=== PATIENT | female | born 1975 | race Caucasian/White ===

== ENCOUNTER 2016-11-12 07:20 | Inpatient (IN) | payer OTHER ==
[~2016-11-12] VITALS: Ht 165.1 cm; Wt 39.7 kg
--- NOTE | ~2016-11-12 | CON ---
[place], [place] REPORT OF CONSULTATION NAME: REJI SCHAFER UNIT #: [id number] ROOM: 410 DOCTOR: ERIK CROCKER MD BIRTHDATE: [birth year] DOS: HISTORY OF PRESENT ILLNESS: 41 years old patient who presented with chief complaint of epigastric subxiphoid pain. The patient with known history of established gastritis. The patient is on Prilosec; however, she does coffee and cranberry juices that makes her indigestion much worse. At the time of admission, she has a panel of blood work done, H and H of 16 and 45, macrocytic, white blood cell was 10. Comprehensive metabolic panel, electrolytes balanced, BUN and creatinine normal. Potassium of 3.2 has been addressed. Liver function test of GOT, GPT of 125, 100 and alkaline phosphatase of 230 with the amylase, lipase normality of 61 and [address] scan of the abdomen 3 cm right ovarian cyst, nonobstructive renal calculus, degenerative changes of lumbar spine, all has been recognized. She is status post cholecystectomy. No acute pancreatitis, adrenal gland pathology or liver or spleen has been reported. Hemoglobin A1c was 4.0 and her test was negative. Her C. diff has been negative. Her labs and records repeatedly are addressed. Potassium 3.5, normal. PAST MEDICAL HISTORY: Of significance is heavy alcohol consumption up to a gallon of vodka per day that she has tailored down to a fifth of vodka randomly. Other adjunctive diagnoses macrocytic anemia secondary to heavy alcohol consumption, old history of C. diff, history of depression, protein malnutrition, history of seizure. SOCIAL HISTORY: Heavy alcohol consumption of vodka up to a gallon periodically, which she has tailored down to a fifth of vodka per day and a smoker. FAMILY HISTORY: Noncontributory. ALLERGIES: To no known medications. MEDICATIONS: Medication list has been reviewed. REVIEW OF SYSTEMS: HEENT: Denies double vision, blurred vision. RESPIRATORY: Denies shortness of breath. CARDIOVASCULAR: Denies chest pain. DIGESTIVE SYSTEM: No hematemesis, no hematochezia, subxiphoid pain, dyspepsia secondary to multiple issues including alcohol, caffeine and citrated juices. PHYSICAL EXAMINATION: VITAL SIGNS: Stable, nontoxic, comfortable patient, who has consumed regular diet, who is on Prilosec 20 mg daily otherwise. HEENT: Head normocephalic, nontraumatic. Mouth and buccal mucosa benign. NECK: Supple, no thyromegaly. CHEST: Symmetric anatomy, equal expansion. HEART: Normal sinus rhythm, no gallop, no murmur. ABDOMEN: Soft. No hepato-organomegaly. Bowel sounds within normal limit. EXTREMITIES: No cyanosis, no pedal edema. NEUROLOGIC: Alert, oriented to time, place and person. [place], [place] REPORT OF CONSULTATION NAME: REJI SCHAFER UNIT #: [id number] ROOM: 410 DOCTOR: ERIK CROCKER MD BIRTHDATE: [birth year] IMPRESSION AND PLAN: 1. Microcytic anemia secondary to ETOH consumption, abnormal liver function tests secondary to ETOH consumption, dyspepsia secondary to caffeinated beverage alcohol and citrated juices, heavy history of alcohol dependency up to a gallon of vodka up to recently that she has converted to a fifth of vodka periodically. 2. Nicotine dependency. PLAN AND DISCUSSION: 1. Increasing Prilosec to 20 mg b.i.d. 2. Discharge and follow up as outpatient. ERIK CROCKER MD CM:CONSTR:REPORT OF CONSULTATION 1313 11/16/16 0324 interface
[~2016-11-12 07:20] MED LIST: ACYCLOVIR800 MG PO; AMOXICILLIN500 MG PO; ANAPROX DS550 MG PO; ATIVAN; ATIVAN1 MG PO; B-1100 MG PO; B12,B-12,B 12500 MC1 PO; B12-METHYL1000 MCG PO; BACTRIM DS 8001 TA1 PO; CALCIUM 600600 M2 PO; CARAFATE1 G1 PO; CELEXA10 MG PO; CELEXA20 MG PO; CIPRO500 MG PO; CIPRODEX 0.3%-7.5 ML OT; CLINDAMYCIN HC300 MG PO; CORTISPORIN SUS10 ML OT; Carafate1 GM PO; DIFLUCAN150 MG PO; DILANTIN100 MG PO; FERROUS SULFAT325 M1 PO; FOLIC ACID1 MG PO; HYDROCODONE BIT1 T11 PO; K-DUR 2020 MEQ PO; K-DUR20 MEQ PO; KEFLEX500 MG PO; KROGER NIC21 MG/24 H T; LACTULOSE20 GM/30 M PO; LEVOFLOXACIN500 MG PO; MAG-OX 400400 MG PO; MAGNESIUM OXID400 MG PO; MEDROL DOSEPAK4 MG PO; METRONIDAZOLE500 M1 PO; MIRTAZAPINE15 M2 PO; MOTRIN800 MG PO; MULTIPLE VITAMI1 CAP PO; Motrin,Rufen800 MG PO; NAPROSYN250 MG PO; NAPROSYN500 MG PO; NATURE'S BLEND F1 MG PO; NEUTRA-PHOS1 PDR PO; NICODERM21 MG/24 H T; NICORETTE4 MG PO; NKHM; NORCO 325 MG-51 TAB PO; OMEPRAZOLE D/R20 MG PO; Oscal,Oyster S500 MG PO; PEN-VEE K500 MG PO; PEPCID20 MG PO; PERCOCET 325 MG1 TA2 PO; PERCOCET 325 MG1 TA5 PO; POTASSIUM CHLO20 MEQ PO; PREDNICOT10 MG PO; PRILOSEC10 MG/Pack PO; PRILOSEC20 M1 PO; PRILOSEC20 MG PO; PROTONIX40 MG PO; PYRIDOXINE50 MG PO; SEPTRA DS 800 M1 TAB PO; SERTRALINE HYDR50 MG PO; SUCRALFATE1 GM; TUMS 500500 MG PO; U; ULTRAM50 MG PO; VALIUM5 MG PO; VICODIN 5/500 505 MG PO; VICODIN 500 MG-1 TAB PO; VICODIN ES 7501 TAB PO; VOLTAREN50 M1 PO; ZOFRAN ODT4 MG SL; ZOLOFT25 MG PO; ZOLOFT50 MG PO; Zofran4 MG PO
[2016-11-12 07:46] VITALS: BP 138/95
[2016-11-12 08:37] LABS: BASO % 0.2 % (0.0-1.0); HEMATOCRIT 45.3 % (37.0-47.0); HEMOGLOBIN 16.1 g/dl (12.0-16.0); LYMPH # 1.1 10*3/uL (1.3-4.4); LYMPH % 10.8 % (27.0-41.0); MEAN CELL VOLUME 105.1 fl (81.0-99.0); MEAN CORPUSCULAR HGB 37.4 pg (27.0-31.0); MEAN CORPUSCULAR HGB CONC 35.5 g/dl (33.0-37.0); MEAN PLATELET VOLUME 9.6 fl (9.6-12.3); MONO # 0.6 10*3/uL (0.1-1.0); MONO % 5.7 % (3.0-9.0); NEUT # 8.5 10*3/uL (2.3-7.9); PLATELET COUNT AUTOMATED 222 10*3/uL (130-400); RED BLOOD COUNT 4.31 10*6/uL (4.10-5.10); RED CELL DISTRI WIDTH 12.6 % (0-14.5); WHITE BLOOD COUNT 10.2 10*3/uL (4.8-10.8)
[2016-11-12 08:48] LABS: ALBUMIN 3.8 gm/dl (3.1-4.5); ALKALINE PHOSPHATASE 230 U/L (45-117); BILIRUBIN, TOTAL 0.9 mg/dl (0.2-1.0); BUN 18 mg/dl (7-24); CARBON DIOXIDE 31 mmol/L (21-32); CHLORIDE 92 mmol/L (98-107); EST GLOM FILT AFRICAN AMERICAN > 60 ml/min; GLUCOSE 143 mg/dL (65-99); POTASSIUM 3.2 mmol/L (3.5-5.1); SGOT/AST 125 IU/L (3-35); SGPT/ALT 100 U/L (12-78); SODIUM 140 mmol/L (136-145); TOTAL PROTEIN 8.5 gm/dL (6.4-8.2)
[2016-11-12] MEDS ORDERED: CELEXA40 MG PO (09:41)
[2016-11-12] MEDS ORDERED: NEURONTIN100 MG PO (09:41)
[2016-11-12 10:28] LABS: BILIRUBIN 3+ (NEGATIVE); BLOOD TRACE-INTACT (NEGATIVE); CLARITY SL CLOUDY (CLEAR); COLOR YELLOW (YELLOW); GLUCOSE NEGATIVE (NEGATIVE); KETONE 3+ (NEGATIVE); LEUKO ESTERASE TRACE (NEGATIVE); NITRITE NEGATIVE (NEGATIVE); PH 7.5 (5.0-9.0); PROTEIN 2+ (NEGATIVE); SPECIFIC GRAVITY 1.015 (1.005-1.030)
[2016-11-12 10:35] LABS: BACTERIA 1+; MUCOUS 1+; URINE REFLEX COMMENT YES (NO)
[2016-11-12 10:38] LABS: WBC 16-20 wbc/hpf (0-5)
[2016-11-12] MEDS ORDERED: NEURONTIN300 MG PO (11:22)
[2016-11-12] MEDS ORDERED: VITAMIN B1250 MCG PO (11:23)
[2016-11-12] MEDS ORDERED: NATURE'S BLEND F1 MG PO (11:24)
[2016-11-12 12:10] LABS: CPK 22 U/L (26-192)
[2016-11-12 12:14] LABS: CKMB < 0.5 ng/ml (0.5-3.6); TROPONIN I < 0.015 ng/ml (<0.045)
[2016-11-12 16:00] VITALS: BP 127/81
[2016-11-12 18:13] LABS: CKMB < 0.5 ng/ml (0.5-3.6); CPK 22 U/L (26-192); TROPONIN I < 0.015 ng/ml (<0.045)
[2016-11-12 20:00] VITALS: BP 132/80
[2016-11-13] VITALS: BP 139/84
[2016-11-13 00:45] LABS: CPK 23 U/L (26-192)
[2016-11-13 00:46] LABS: CKMB < 0.5 ng/ml (0.5-3.6); TROPONIN I < 0.015 ng/ml (<0.045)
[2016-11-13 06:18] LABS: MEAN CORPUSCULAR HGB 37.2 pg (27.0-31.0); MEAN CORPUSCULAR HGB CONC 33.9 g/dl (33.0-37.0); MEAN PLATELET VOLUME 10.4 fl (9.6-12.3); RED BLOOD COUNT 3.47 10*6/uL (4.10-5.10); RED CELL DISTRI WIDTH 12.8 % (0-14.5); WHITE BLOOD COUNT 8.6 10*3/uL (4.8-10.8)
[2016-11-13 06:20] LABS: HEMATOCRIT 38.1 % (37.0-47.0); HEMOGLOBIN 12.9 g/dl (12.0-16.0); MEAN CELL VOLUME 109.8 fl (81.0-99.0); PLATELET COUNT AUTOMATED 132 10*3/uL (130-400)
[2016-11-13 07:00] LABS: LYMPHOCYTE # 2.2 10*3/uL (1.3-4.4); MONOCYTE # 0.2 10*3/uL (0.1-1.0); NEUTROPHIL # 6.3 10*3/uL (2.3-7.9); NEUTROPHILS 73 % (47-73); PLATELET SUFFICIENCY NORMAL (NORMAL); TOTAL CELLS COUNTED 100 #CELLS
[2016-11-13 07:02] LABS: PROTHROMBIN TIME 10.9 SECONDS (9.0-12.4)
[2016-11-13 07:10] LABS: VITAMIN D, 25-HYDROXY 35.2 ng/mL (30-100)
[2016-11-13 07:11] LABS: FOLIC ACID 15.99 ng/mL (>5.38)
[2016-11-13 07:19] LABS: BUN 9 mg/dl (7-24); CARBON DIOXIDE 29 mmol/L (21-32); CHLORIDE 102 mmol/L (98-107); EST GLOM FILT AFRICAN AMERICAN > 60 ml/min; GLUCOSE 89 mg/dL (65-99); POTASSIUM 2.5 mmol/L (3.5-5.1); SODIUM 142 mmol/L (136-145)
[2016-11-13 07:20] LABS: CHOLESTEROL 200 mg/dL (<200); FREE T4 0.71 ng/dl (0.76-1.46); HDL CHOLESTEROL 113 mg/dl (40-60); LDL CHOLESTEROL 67 mg/dL (9-159); MAGNESIUM 1.3 mg/dL (1.5-2.1); PHOSPHOROUS 1.1 mg/dL (2.5-4.9); TRIGLYCERIDES 100 mg/dl (<150); VLDL CHOLESTEROL 20 mg/dL (6-40)
[2016-11-13 08:00] VITALS: BP 141/88
[2016-11-13 12:00] VITALS: BP 142/90
[2016-11-13 16:00] VITALS: BP 152/95
[2016-11-13 20:00] VITALS: BP 145/89
[2016-11-14] VITALS: BP 132/89
[2016-11-14 05:58] LABS: BUN 1 mg/dl (7-24); CARBON DIOXIDE 28 mmol/L (21-32); CHLORIDE 102 mmol/L (98-107); EST GLOM FILT AFRICAN AMERICAN > 60 ml/min; GLUCOSE 84 mg/dL (65-99); MAGNESIUM 1.5 mg/dL (1.5-2.1); PHOSPHOROUS 2.1 mg/dL (2.5-4.9); SODIUM 139 mmol/L (136-145)
[2016-11-14 06:02] LABS: HEMATOCRIT 39.8 % (37.0-47.0); HEMOGLOBIN 13.6 g/dl (12.0-16.0); MEAN CELL VOLUME 108.2 fl (81.0-99.0); MEAN CORPUSCULAR HGB CONC 34.2 g/dl (33.0-37.0); MEAN PLATELET VOLUME 10.2 fl (9.6-12.3); PLATELET COUNT AUTOMATED 109 10*3/uL (130-400); RED BLOOD COUNT 3.68 10*6/uL (4.10-5.10); RED CELL DISTRI WIDTH 12.5 % (0-14.5); WHITE BLOOD COUNT 6.8 10*3/uL (4.8-10.8)
[2016-11-14 06:08] LABS: POTASSIUM 2.3 mmol/L (3.5-5.1)
[2016-11-14 06:34] LABS: EOSINOPHIL # 0.2 10*3/uL (0-0.4); EOSINOPHILS 3 % (1-4); MONOCYTE # 0.5 10*3/uL (0.1-1.0); NEUTROPHIL # 3.1 10*3/uL (2.3-7.9); NEUTROPHILS 46 % (47-73); PLATELET SUFFICIENCY LOW (NORMAL); TOTAL CELLS COUNTED 100 #CELLS
[2016-11-14 08:00] VITALS: BP 150/94
[2016-11-14 12:00] VITALS: BP 146/86
[2016-11-14 12:56] LABS: BUN 1 mg/dl (7-24); CARBON DIOXIDE 29 mmol/L (21-32); EST GLOM FILT AFRICAN AMERICAN > 60 ml/min; GLUCOSE 82 mg/dL (65-99); SODIUM 137 mmol/L (136-145)
[2016-11-14 13:07] LABS: CHLORIDE 100 mmol/L (98-107)
[2016-11-14 13:15] LABS: POTASSIUM 4.5 mmol/L (3.5-5.1)
[2016-11-14 16:00] VITALS: BP 128/92
[2016-11-14 20:00] VITALS: BP 136/87
[2016-11-15] VITALS: BP 139/94
[2016-11-15 07:06] LABS: BASO % 0.3 % (0.0-1.0); EOS # 0.3 10*3/uL (0.0-0.4); EOS % 5.4 % (1.0-4.0); HEMATOCRIT 40.5 % (37.0-47.0); HEMOGLOBIN 13.9 g/dl (12.0-16.0); LYMPH # 2.6 10*3/uL (1.3-4.4); LYMPH % 42.7 % (27.0-41.0); MEAN CORPUSCULAR HGB 37.1 pg (27.0-31.0); MEAN CORPUSCULAR HGB CONC 34.3 g/dl (33.0-37.0); MONO # 0.4 10*3/uL (0.1-1.0); MONO % 6.5 % (3.0-9.0); NEUT # 2.7 10*3/uL (2.3-7.9); NEUT % 44.8 % (47.0-73.0); PLATELET COUNT AUTOMATED 108 10*3/uL (130-400); RED BLOOD COUNT 3.75 10*6/uL (4.10-5.10); RED CELL DISTRI WIDTH 12.6 % (0-14.5); WHITE BLOOD COUNT 6.1 10*3/uL (4.8-10.8)
[2016-11-15 07:36] LABS: BUN 5 mg/dl (7-24); CARBON DIOXIDE 28 mmol/L (21-32); CHLORIDE 101 mmol/L (98-107); EST GLOM FILT AFRICAN AMERICAN > 60 ml/min; GLUCOSE 73 mg/dL (65-99); SODIUM 139 mmol/L (136-145)
[2016-11-15 07:46] LABS: POTASSIUM 3.5 mmol/L (3.5-5.1)
[2016-11-15 08:00] VITALS: BP 150/90
[2016-11-15 12:00] VITALS: BP 138/94
[2016-11-15] MEDS ORDERED: NEURONTIN300 MG PO ×2 (14:30)
[2016-11-15] MEDS ORDERED: PANTOPRAZOLE SO40 MG PO (14:30)
[2016-11-15] MEDS ORDERED: IMODIUM A-D2 M2 PO (14:32)
[2016-11-15] MEDS ORDERED: ACIDOPHILUS1 EAC3 PO (14:32)
[2016-11-15] MEDS ORDERED: CIPRO500 MG PO (14:53)
== END 2016-11-15 14:54 | disposition home or self-care (01) | DRG 391 ==
LOC: ED 07:20 → EDHOLD 10:23 → 4E 10:43
PROVIDERS: Emergency Medicine; Family Medicine; Hospitalist; Student in an Organized Health Care Education/Training Program
DX: K52.9 Noninfective gastroenteritis and colitis, unspecified (principal); E43 Unspecified severe protein-calorie malnutrition; I85.10 Secondary esophageal varices without bleeding; N28.89 Other specified disorders of kidney and ureter; F10.20 Alcohol dependence, uncomplicated; D50.8 Other iron deficiency anemias; N39.0 Urinary tract infection, site not specified; Z68.1 Body mass index [BMI] 19.9 or less, adult; F41.9 Anxiety disorder, unspecified; E86.0 Dehydration; F32.9 Major depressive disorder, single episode, unspecified; G62.9 Polyneuropathy, unspecified; G40.909 Epilepsy, unspecified, not intractable, without status epilepticus; F17.210 Nicotine dependence, cigarettes, uncomplicated; E87.6 Hypokalemia; D75.89 Other specified diseases of blood and blood-forming organs; N83.209 Unspecified ovarian cyst, unspecified side; M51.36 Other intervertebral disc degeneration, lumbar region; R20.9 Unspecified disturbances of skin sensation; B96.20 Unspecified Escherichia coli [E. coli] as the cause of diseases classified elsewhere; Z79.899 Other long term (current) drug therapy; Z90.49 Acquired absence of other specified parts of digestive tract; Z85.41 Personal history of malignant neoplasm of cervix uteri; Z80.3 Family history of malignant neoplasm of breast; Z82.49 Family history of ischemic heart disease and other diseases of the circulatory system

== ENCOUNTER 2017-06-25 11:03 | Inpatient (IN) | payer SELFPAY ==
[~2017-06-25] VITALS: Ht 160 cm; Wt 41.4 kg
[~2017-06-25 11:03] MED LIST changes: +ACIDOPHILUS1 EAC3 PO; +CELEXA40 MG PO; +IMODIUM A-D2 M2 PO; +NEURONTIN100 MG PO; +NEURONTIN300 MG PO; +PANTOPRAZOLE SO40 MG PO; +VITAMIN B1250 MCG PO
[2017-06-25 11:25] VITALS: BP 136/91
[2017-06-25 11:57] LABS: BASO % 0.4 % (0.0-1.0); EOS # 0.2 10*3/uL (0.0-0.4); EOS % 1.8 % (1.0-4.0); HEMATOCRIT 41.1 % (37.0-47.0); HEMOGLOBIN 14.6 g/dl (12.0-16.0); LYMPH # 2.6 10*3/uL (1.3-4.4); MEAN CELL VOLUME 107.9 fl (81.0-99.0); MEAN CORPUSCULAR HGB 38.3 pg (27.0-31.0); MEAN CORPUSCULAR HGB CONC 35.5 g/dl (33.0-37.0); MONO # 0.5 10*3/uL (0.1-1.0); NEUT # 5.1 10*3/uL (2.3-7.9); NEUT % 60.4 % (47.0-73.0); PLATELET COUNT AUTOMATED 58 10*3/uL (130-400); RED BLOOD COUNT 3.81 10*6/uL (4.10-5.10); RED CELL DISTRI WIDTH 14.8 % (0-14.5); WHITE BLOOD COUNT 8.4 10*3/uL (4.8-10.8)
[2017-06-25 12:07] LABS: ACT PARTIAL THROMBO TIME 25.9 SECONDS (20.8-31.5); INTERNATIONAL NORM RATIO 1.1 (2.0-3.5)
[2017-06-25 12:13] LABS: ALBUMIN 3.3 gm/dl (3.1-4.5); ALKALINE PHOSPHATASE 190 U/L (45-117); BUN 8 mg/dl (7-24); CHLORIDE 81 mmol/L (98-107); POTASSIUM 2.9 mmol/L (3.5-5.1); SGOT/AST 187 IU/L (3-35); SGPT/ALT 61 U/L (12-78); SODIUM 130 mmol/L (136-145)
[2017-06-25 12:14] LABS: BILIRUBIN 3+ (NEGATIVE); BLOOD TRACE-LYSED (NEGATIVE); CLARITY SL CLOUDY (CLEAR); GLUCOSE TRACE (NEGATIVE); KETONE 2+ (NEGATIVE); NITRITE POSITIVE (NEGATIVE); UROBILINOGEN >= 8.0 E.U./dl (0.2-1.0)
[2017-06-25 12:16] LABS: TROPONIN I < 0.015 ng/ml (<0.045)
[2017-06-25 12:17] LABS: ETHYL ALCOHOL < 3.0 mg/dl (<3)
[2017-06-25 12:20] LABS: COLOR ORANGE (YELLOW); LEUKO ESTERASE TRACE (NEGATIVE)
[2017-06-25 12:23] LABS: EPITHELIAL CELLS 31-40
[2017-06-25 12:24] LABS: BACTERIA 1+
[2017-06-25 12:29] LABS: URINE AMPHETAMINES < 1000 (1000ng/ml); URINE BARBITURATES < 200 (200ng/ml); URINE BENZODIAZEPINES < 200 (200ng/ml); URINE CANNABINOIDS (THC) > 50 (50ng/ml); URINE COCAINE < 300 (300ng/ml); URINE METHADONE < 300 (300ng/ml); URINE OPIATES < 300 (300ng/ml)
[2017-06-25 12:31] LABS: URINE PHENCYCLIDINE < 25 (25ng/ml)
[2017-06-25 13:16] VITALS: BP 121/72
--- NOTE | 2017-06-25 13:18 | NUR ---
REPORT RECEIVED FROM ER NURSE
[2017-06-25 13:25] VITALS: BP 120/90
--- NOTE | 2017-06-25 13:30 | NUR ---
PATIENT HAS LARGE ECCHYMOTIC AREA TO LEFT OUTER CORNER OF EYE. ECCYMOTIC AREA TO RT UPPER LIP & KNOT ABOVE RT EYE. RT KNEE HAS ABRAISIONS THAT ARE SOMEWHAT SCABBED TO INNER & OUTER ASPECTS. LEFT KNEE HAS 2 LARGE ABRAISIONS THAT ARE SOMEWHAT SCABBED. UPPER RT LEUNG HAS A LARGE OPEN AREA WITH A HOLE IN THE MIDDLE & DARK/NECROTIC AREA TO THE PERIMETER. THERE IS ALSO AT THE BOTTOM OF THAT WOUND (1800 POSITION) FULLY ATTACHED SKIN THAT ALLOWS THE STICK OF THE COTTON TIP APPLICATOR TO GO UNDER 2mm. ANOTHER WOUND TO THE LEFT ANKLE IS A SKIN TEAR. SEE WOUND SCREEN. DRESSING APPLIED TO ALL WOUNDS ON LOWER EXTREMITIES & DR LIMA MADE AWARE OF WOUNDS & MED REC UPDATED/ ORDERS RECEIVED.
--- NOTE | 2017-06-25 13:30 | NUR ---
A 42, admitted to , under the services of DEIRDRE Nj DO with a diagnosis of ELECTROLYTE IMBALANCE, CONFUSION, FREQ FALLS.. Chief complaint is N/V/D X1 WEEKS WITH INCREASE IN FALLS & VERY VIVID DREAMS. PER [place] CONFUSED THAN NORMAL. . Patient arrived via stretcher from ER. Monitor applied. Initial assessment completed. Vital signs taken and recorded. DEIRDRE NJ DO notified of admission to the unit. Orders received. See assessment for past medical history, medications and allergies. Patient and/or family oriented to unit. [facility]. Clothing/patient valuable form completed. IRMA LIEBERMAN
[2017-06-25] MEDS ORDERED: NEURONTIN100 MG PO (13:47)
[2017-06-25 16:00] VITALS: BP 114/77
--- NOTE | 2017-06-25 17:00 | NUR ---
ZOFRAN GIVEN WITH PO POTASSIUM
[2017-06-25 20:00] VITALS: BP 114/77
--- NOTE | 2017-06-25 20:00 | NUR ---
PT. IS CURRENTLY SITTING UP IN BED WATCHING TV AT THIS TIME. PT. REQUESTING NICOTROL INHALER, SEE EMAR. BED WHEELS ARE LOCKED, AND BED IN LOWEST POSITION. CALL LIGHT IS WITHIN REACH AND PT. DOES NOT HAVE S/S OF DISTRESS. SEE SHIFT ASSESSMENT.
--- NOTE | 2017-06-25 22:20 | NUR ---
PRN NORCO GIVEN TO PT. FOR C/O LOWER BACK AND NECK PAIN. CALL LIGHT IN REACH WILL MONITOR EFFECT.
--- NOTE | 2017-06-25 23:00 | NUR ---
PRN NORCO SEEMS EFFECTIVE, WHEN ASKED PT. DOES NOT VERBALIZE ANY PAIN.
--- NOTE | 2017-06-25 23:51 | NUR ---
PRN RESTORIL GIVEN PER PT. REQUEST FOR INSOMNIA. WILL MONITOR EFFECT.
[2017-06-26] VITALS: BP 123/88; BP 99/75
--- NOTE | 2017-06-26 00:30 | NUR ---
PRN RESTORIL SEEMS EFFECTIVE, PT. IS SLEEPING COMFORTABLY IN BED WITH CALL LIGHT IN REACH AND RESPERS EASY AND REGULAR. WILL CONTINUE TO MONITOR.
[2017-06-26 04:52] LABS: HEMATOCRIT 35.2 % (37.0-47.0); HEMOGLOBIN 12.3 g/dl (12.0-16.0); MEAN CELL VOLUME 109.3 fl (81.0-99.0); MEAN CORPUSCULAR HGB 38.2 pg (27.0-31.0); MEAN CORPUSCULAR HGB CONC 34.9 g/dl (33.0-37.0); MEAN PLATELET VOLUME 12.3 fl (9.6-12.3); PLATELET COUNT AUTOMATED 50 10*3/uL (130-400); RED BLOOD COUNT 3.22 10*6/uL (4.10-5.10); RED CELL DISTRI WIDTH 14.6 % (0-14.5)
[2017-06-26 05:19] LABS: ATYPICAL LYMPHS 6 % (0-0); PLATELET SUFFICIENCY LOW (NORMAL); TOTAL CELLS COUNTED 100 #CELLS
[2017-06-26 05:21] LABS: ALBUMIN 2.7 gm/dl (3.1-4.5); ALKALINE PHOSPHATASE 147 U/L (45-117); BUN 7 mg/dl (7-24); CHLORIDE 92 mmol/L (98-107); CREATININE 0.56 mg/dL (0.55-1.02); FREE T4 1.16 ng/dl (0.76-1.46); PHOSPHOROUS 2.4 mg/dL (2.5-4.9); POTASSIUM 2.6 mmol/L (3.5-5.1); SGOT/AST 106 IU/L (3-35); SGPT/ALT 43 U/L (12-78); SODIUM 134 mmol/L (136-145); TOTAL PROTEIN 6.5 gm/dL (6.4-8.2)
[2017-06-26 06:09] LABS: HEPATITIS B SURFACE AG Negative (Negative); HEPATITIS C VIRUS ANTIBODY 0.2 s/co (0.0-0.9)
[2017-06-26 08:00] VITALS: BP 115/69
--- NOTE | 2017-06-26 08:15 | NUR ---
NORCO GIVEN FOR C/O GENERALIZED DISCOMFORT. WILL MONITOR.
--- NOTE | 2017-06-26 09:20 | NUR ---
SURAJ EFFECTIVE PER PT.
[2017-06-26 12:00] VITALS: BP 110/66
--- NOTE | 2017-06-26 13:15 | NUR ---
NORCO GIVEN FOR C/O GENERALIZED DISCOMFORT. WILL MONITOR.
--- NOTE | 2017-06-26 14:30 | NUR ---
SURAJ EFFECTIVE PER PT.
[2017-06-26 16:00] VITALS: BP 116/60
--- NOTE | 2017-06-26 17:10 | NUR ---
VISTARIL GIVEN FOR C/O ANXIETY. WILL MONITOR.
--- NOTE | 2017-06-26 18:12 | NUR ---
VISTARIL EFFECTIVE PER PT.
[2017-06-26 20:00] VITALS: BP 104/69
--- NOTE | 2017-06-26 20:04 | NUR ---
PT SITTING UP IN BED, ALERT ORIENTED AND PLEASANT. ASSESSMENT COMPLETE, HRR 74 ON CM. LUNGS DIMINISHED THROUGHOUT. ACTIVE BSX4 QUADS. PT C/O HEADACHE, TYLENOL 650 MG ADMINISTERED PO. WILL MONITOR FOR EFFECTIVENESS. CALL LIGHT IN REACH.
--- NOTE | 2017-06-26 21:04 | NUR ---
TYLENOL EFFECTIVE PER PT.
--- NOTE | 2017-06-26 22:23 | NUR ---
PT C/O BACKACHE AND INSOMNIA. NORCO AND RESTORIL ADMINISTERED AT THIS TIME. WILL MONITOR FOR EFFECTIVENESS. PT CURRENTLY RESTING IN BED.
[2017-06-27] VITALS: BP 110/68
--- NOTE | 2017-06-27 05:24 | NUR ---
PT AWAKE, ALERT ORIENTED AND PLEASANT. REQUESTS NORCO FOR PAIN. NORCO ADMINISTERED AT THIS TIME ALONG WITH OTHER SCHEDULED MEDICATIONS. WILL MONITOR FOR EFFECTIVENESS.
--- NOTE | 2017-06-27 06:28 | NUR ---
NORCO EFFECTIVE PER PT. PT RESTING IN BED AT THIS TIME NO S/S OF DISTRESS. RESPIRATIONS EASY. PT ENCOURAGED TO USE CALL LIGHT FOR ASSISTANCE/QUESTIONS.
[2017-06-27 06:33] LABS: HEMATOCRIT 35.4 % (37.0-47.0); MEAN CORPUSCULAR HGB 38.7 pg (27.0-31.0); MEAN CORPUSCULAR HGB CONC 33.9 g/dl (33.0-37.0); RED CELL DISTRI WIDTH 14.7 % (0-14.5); WHITE BLOOD COUNT 3.4 10*3/uL (4.8-10.8)
[2017-06-27 06:36] LABS: MEAN CELL VOLUME 114.2 fl (81.0-99.0); PLATELET COUNT AUTOMATED 72 10*3/uL (130-400)
[2017-06-27 06:38] LABS: BUN 8 mg/dl (7-24); CHLORIDE 100 mmol/L (98-107); CREATININE 0.41 mg/dL (0.55-1.02)
[2017-06-27 06:40] LABS: SODIUM 137 mmol/L (136-145)
[2017-06-27 06:41] LABS: POTASSIUM 3.8 mmol/L (3.5-5.1)
[2017-06-27 07:07] LABS: ATYPICAL LYMPHS 2 % (0-0); TOTAL CELLS COUNTED 100 #CELLS
[2017-06-27 07:09] LABS: PLATELET SUFFICIENCY LOW (NORMAL)
[2017-06-27 08:00] VITALS: BP 108/86
--- NOTE | 2017-06-27 09:00 | NUR ---
PT REQUESTS SOMETHING FOR ANXIETY. DR LIMA NOTIFIED.
[2017-06-27 12:00] VITALS: BP 123/82
--- NOTE | 2017-06-27 14:51 | NUR ---
C/O PAIN OF 4/10 TO BACK AND 7/10 TO LEFT LEG. NORCO GIVEN WILL CONT TO MONITOR. CALL LIGHT IN REACH.
--- NOTE | 2017-06-27 15:51 | NUR ---
EDEN EFF FOR PAIN WILL CONT TO MONITOR. CALL LIGHT IN REACH.
[2017-06-27 16:00] VITALS: BP 109/75
[2017-06-27 20:00] VITALS: BP 118/82
[2017-06-28] VITALS: BP 114/82
[2017-06-28 06:20] LABS: HEMATOCRIT 35.3 % (37.0-47.0); HEMOGLOBIN 11.9 g/dl (12.0-16.0); MEAN CELL VOLUME 112.4 fl (81.0-99.0); MEAN CORPUSCULAR HGB 37.9 pg (27.0-31.0); MEAN CORPUSCULAR HGB CONC 33.7 g/dl (33.0-37.0); MEAN PLATELET VOLUME 11.1 fl (9.6-12.3); RED BLOOD COUNT 3.14 10*6/uL (4.10-5.10); RED CELL DISTRI WIDTH 14.6 % (0-14.5); WHITE BLOOD COUNT 3.9 10*3/uL (4.8-10.8)
[2017-06-28 06:26] LABS: PLATELET COUNT AUTOMATED 110 10*3/uL (130-400)
[2017-06-28 06:40] LABS: CHLORIDE 102 mmol/L (98-107); POTASSIUM 3.9 mmol/L (3.5-5.1); SODIUM 135 mmol/L (136-145)
[2017-06-28 06:46] LABS: ALBUMIN 2.5 gm/dl (3.1-4.5); ALKALINE PHOSPHATASE 127 U/L (45-117); BUN 7 mg/dl (7-24); CREATININE 0.45 mg/dL (0.55-1.02); SGOT/AST 47 IU/L (3-35); SGPT/ALT 33 U/L (12-78); TOTAL PROTEIN 6.2 gm/dL (6.4-8.2)
[2017-06-28 07:03] LABS: TOTAL CELLS COUNTED 100 #CELLS
[2017-06-28 07:04] LABS: PLATELET SUFFICIENCY LOW (NORMAL)
[2017-06-28 08:00] VITALS: BP 100/65
--- NOTE | 2017-06-28 09:00 | NUR ---
Collections Director in to talk to patient. Patient states lives at home with . There are few steps in the home. Physician: salena thompson [facility] Home health services: none Patient's level of ADLs: INDEPENDENT Patient has working utilities: all working DME: none Follow-up physician's appointment after d/c: will be made by hospitalist nurse director upon discharge Does patient want to access PORTAL?: no Discharge plan discussed with patient, patient lives at home with , she is independent in adls and ambulation, drives, patient states she will be going back home and denies any home needs. PRACHI CONTRERAS
--- NOTE | 2017-06-28 09:54 | NUR ---
MEDICATED WITH PRN PO NORCO FOR RIGHT LEUNG PAIN AND GENERALIZED BODY PAIN.
[2017-06-28 12:00] VITALS: BP 109/70
--- NOTE | 2017-06-28 12:07 | NUR ---
PRN PO NORCO EFFECTIVE, PER PATIENT.
--- NOTE | 2017-06-28 14:00 | NUR ---
MEDICATED WITH PRN PO NORCO FOR RIGHT LEUNG PAIN.
--- NOTE | 2017-06-28 15:00 | NUR ---
PRN PO NORCO EFFECTIVE FOR RIGHT LEG PAIN, BUT C/O LEFT SIDE OF HEAD PAIN.
--- NOTE | 2017-06-28 15:12 | NUR ---
PHYSICAL THERAPY Pnt declined the need for Physical Therapy intervention during this admission. Order canceled per pnt request. Keke Tobar, PT
--- NOTE | 2017-06-28 15:19 | NUR ---
Patient approached for Occupational Therapy evaluation this date d/t h/o frequent falls. Patient declined OT evaluation and stated that she was independent in all transfers, mobility and ADLs. Discharge OT order per patient request. Carlota Holt OTR/L
[2017-06-28] MEDS ORDERED: Vitamin D PO (15:26)
[2017-06-28] MEDS ORDERED: AVPAK EXTENDED100 M1 PO (15:26)
[2017-06-28] MEDS ORDERED: VITAMIN D-32000 UNIT PO (15:27)
--- NOTE | 2017-06-28 15:35 | NUR ---
REJI SMITH [id number] Please refer to the physician's history and physical for past medical history, comorbid conditions, and allergies. Diagnosis: CONFUSION,HYPONATREMIA,THROMBOCYTOPENIA,ELEVATED M Gurdeep Score: 20,LOW OR NO RISK WOUND DESCRIPTIONS: Location of the wound: right anterior lower leg Type of wound: skin tear Thickness: Full Size: 2cm x 4cm x 0.2cm Tunneling: none Undermining: none Sinus Tract: none Presence of Exudate: Sanguineous Amount: Light Color: Red Odor: None Periwound Skin Appearance: Normal Wound edges: approximated Pain (associated with wound): patient denied at time of assessment How does patient state this happened? patient states she fell backwards while cleaning at home Location of the wound: right knee Type of wound: skin tear Thickness: Partial Size: 2 cm x 2 cm x 0.1cm Tunneling: none Undermining: none Sinus Tract: none Presence of Exudate: Serous Amount: Light Color: Red Odor: None Periwound Skin Appearance: Normal Wound edges: approxiamted Pain (associated with wound): patient denied How does patient state this happened? patient states she fell backwards while cleaning Location of the wound: left proximal knee Type of wound: skin tear Thickness: Partial Size: 2.5cm x 1.5cm x 0.1cm Tunneling: none Undermining: none Sinus Tract: none Presence of Exudate: Serous Amount: Light Color: Red Odor: None Periwound Skin Appearance: Normal Wound edges: approximated Pain (associated with wound): patient denied at time of assessment How does patient state this happened? patient states she fell backward while cleaning Location of the wound: left distal knee Type of wound: skin tear Thickness: Partial Size: 1 cm x 0.4cm x 0.1cm Tunneling: none Undermining: none Sinus Tract: none Presence of Exudate: Serous Amount: Light Color: Red Odor: None Periwound Skin Appearance: Normal Wound edges: approximated Pain (associated with wound): patient denied at time of assessment How does patient state this happened? patient states she fell backward while cleaning Location of the wound: left anterior lower extremity Type of wound: skin tear Thickness: Partial Size: 0.5cm x 2.5cm x 0.1cm Tunneling: none Undermining: none Sinus Tract: none Presence of Exudate: Serous Amount: Light Color: Red Odor: None Periwound Skin Appearance: Normal Wound edges: approximated Pain (associated with wound): patient denied at time of assessment How does patient state this happened? patient states she fell backward while cleaning Surface the patient is resting on: Isoflex SKIN PREVENTION RECOMMENDATION: 1. Pressure redistribution support surface as appropriate 2. Elevate heels 3. Remove boots/TEDS every shift and reapply 4. Head of bed 30 degrees as tolerated 5. Assess nutrition and hydration 6. Manage moisture 7. Avoid the use of containment devices while in bed 8. Use absorptive products on surfaces limit layers of linens on bed 9. Turn and reposition every 1-2 hours in bed and every 1 hour in chair as tolerated 10. Weight shifts every 15 minutes while up in chair 11. Offloading with pillows or device to keep heels elevated off bed 12. Monitor skin at least every shift 13. Inspect under medical devices twice a day WOUND TREATMENT RECOMMENDATIONS: Continue current orders
--- NOTE | 2017-06-28 16:56 | NUR ---
Discharge instructions reviewed with patient. Patient receptive and verbalizes understanding. Follow-up care arranged. Written instructions given to patient. PATIENT DISCHARGED TO [facility], AMBULATORY, FOR TRANSPORT HOME BY PRIVATE VEHICLE WITH SPOUSE. RASHAD SEQUEIRA
[2017-06-28] MEDS ORDERED: VISTARIL25 MG PO (17:13)
[2017-06-28 18:09] LABS: FREE PHENYTOIN (DILANTIN) None Detected ug/mL (1.0-2.0)
--- NOTE | 2017-06-30 10:38 | NUR ---
Spoke with [facility] regarding [facility]. I gave her the telephone for follow up care regarding her wounds to her legs. I explained that she will have to provide the household income and she stated her is the only one that has an income. I explained that when she calls them she will have to notify them. I explained that the amount starts out at 20.00 dollars and can go up to full pay based on household income.
== END 2017-06-28 16:56 | disposition home or self-care (01) | DRG 640 ==
LOC: ED 11:03 → EDHOLD 12:56 → 4E 12:56
PROVIDERS: Emergency Medicine; Student in an Organized Health Care Education/Training Program; ADMIT Internal Medicine
DX: E87.6 Hypokalemia (principal); E43 Unspecified severe protein-calorie malnutrition; D69.6 Thrombocytopenia, unspecified; R82.2 Biliuria; E83.42 Hypomagnesemia; G62.9 Polyneuropathy, unspecified; K70.9 Alcoholic liver disease, unspecified; Z68.41 Body mass index [BMI] 40.0-44.9, adult; E87.1 Hypo-osmolality and hyponatremia; R51 Headache; H53.8 Other visual disturbances; R29.6 Repeated falls; R00.0 Tachycardia, unspecified; R31.9 Hematuria, unspecified; E87.8 Other disorders of electrolyte and fluid balance, not elsewhere classified; G40.909 Epilepsy, unspecified, not intractable, without status epilepticus; F32.9 Major depressive disorder, single episode, unspecified; F12.10 Cannabis abuse, uncomplicated; F41.9 Anxiety disorder, unspecified; F17.210 Nicotine dependence, cigarettes, uncomplicated; D75.89 Other specified diseases of blood and blood-forming organs; R80.9 Proteinuria, unspecified; R82.4 Acetonuria; T14.8XXA Other injury of unspecified body region, initial encounter; W19.XXXA Unspecified fall, initial encounter; Y93.89 Activity, other specified; Y92.89 Other specified places as the place of occurrence of the external cause; Y99.8 Other external cause status; Z79.899 Other long term (current) drug therapy; Z90.49 Acquired absence of other specified parts of digestive tract; Z87.898 Personal history of other specified conditions; Z71.6 Tobacco abuse counseling; Z85.89 Personal history of malignant neoplasm of other organs and systems; Z80.3 Family history of malignant neoplasm of breast

== ENCOUNTER 2017-08-18 14:54 | Inpatient (IN) | payer SELFPAY ==
[~2017-08-18] VITALS: Ht 167.6 cm; Wt 45.0 kg
[~2017-08-18 14:54] MED LIST changes: +AVPAK EXTENDED100 M1 PO; +VISTARIL25 MG PO; +VITAMIN D-32000 UNIT PO; +Vitamin D PO
[2017-08-18 14:56] VITALS: BP 126/98
[2017-08-18 15:51] LABS: BASO % 0.2 % (0.0-1.0); EOS # 0.1 10*3/uL (0.0-0.4); EOS % 0.9 % (1.0-4.0); HEMATOCRIT 41.1 % (37.0-47.0); HEMOGLOBIN 14.4 g/dl (12.0-16.0); LYMPH # 1.7 10*3/uL (1.3-4.4); MEAN CELL VOLUME 102.5 fl (81.0-99.0); MEAN CORPUSCULAR HGB 35.9 pg (27.0-31.0); MEAN PLATELET VOLUME 10.2 fl (9.6-12.3); MONO # 0.3 10*3/uL (0.1-1.0); MONO % 5.7 % (3.0-9.0); NEUT # 3.5 10*3/uL (2.3-7.9); NEUT % 62.8 % (47.0-73.0); PLATELET COUNT AUTOMATED 101 10*3/uL (130-400); RED BLOOD COUNT 4.01 10*6/uL (4.10-5.10); RED CELL DISTRI WIDTH 13.2 % (0-14.5); WHITE BLOOD COUNT 5.6 10*3/uL (4.8-10.8)
[2017-08-18 15:59] LABS: ACT PARTIAL THROMBO TIME 25.5 SECONDS (20.8-31.5); INTERNATIONAL NORM RATIO 1.1 (2.0-3.5)
[2017-08-18 16:08] LABS: ALKALINE PHOSPHATASE 205 U/L (45-117); BUN 10 mg/dl (7-24); CHLORIDE 83 mmol/L (98-107); CREATININE 0.78 mg/dL (0.55-1.02); LIPASE 118 U/L (73-393); POTASSIUM 3.5 mmol/L (3.5-5.1); SGOT/AST 233 IU/L (3-35); SGPT/ALT 60 U/L (12-78); SODIUM 133 mmol/L (136-145); TOTAL PROTEIN 7.2 gm/dL (6.4-8.2)
[2017-08-18 16:09] LABS: BETA-HCG, QUANT < 1.0 mIU/mL (1-3); TROPONIN I < 0.015 ng/ml (<0.045)
[2017-08-18 16:21] VITALS: BP 125/88
[2017-08-18 17:08] LABS: BILIRUBIN 1+ (NEGATIVE); BLOOD NEGATIVE (NEGATIVE); CLARITY CLOUDY (CLEAR); COLOR YELLOW (YELLOW); GLUCOSE NEGATIVE (NEGATIVE); KETONE 1+ (NEGATIVE); LEUKO ESTERASE 1+ (NEGATIVE); NITRITE POSITIVE (NEGATIVE); PH >= 9.0 (5.0-9.0)
[2017-08-18 17:15] VITALS: BP 110/72
[2017-08-18 17:22] LABS: BACTERIA 4+; EPITHELIAL CELLS TNTC; RBC 0-2 rbc/hpf (0-2); WBC 31-40 wbc/hpf (0-5)
[2017-08-18 18:14] VITALS: BP 105/74
[2017-08-18 19:45] VITALS: BP 111/80
[2017-08-18 23:44] VITALS: BP 105/67
[2017-08-19 07:54] LABS: BASO % 0.2 % (0.0-1.0); EOS # 0.2 10*3/uL (0.0-0.4); EOS % 3.3 % (1.0-4.0); HEMATOCRIT 36.5 % (37.0-47.0); HEMOGLOBIN 12.5 g/dl (12.0-16.0); LYMPH # 1.8 10*3/uL (1.3-4.4); LYMPH % 38.9 % (27.0-41.0); MEAN CORPUSCULAR HGB 36.3 pg (27.0-31.0); MEAN CORPUSCULAR HGB CONC 34.2 g/dl (33.0-37.0); MEAN PLATELET VOLUME 10.6 fl (9.6-12.3); MONO # 0.2 10*3/uL (0.1-1.0); MONO % 4.8 % (3.0-9.0); NEUT # 2.4 10*3/uL (2.3-7.9); NEUT % 52.4 % (47.0-73.0); RED BLOOD COUNT 3.44 10*6/uL (4.10-5.10); RED CELL DISTRI WIDTH 13.2 % (0-14.5); WHITE BLOOD COUNT 4.6 10*3/uL (4.8-10.8)
[2017-08-19 07:57] LABS: MEAN CELL VOLUME 106.1 fl (81.0-99.0); PLATELET COUNT AUTOMATED 62 10*3/uL (130-400)
[2017-08-19 08:00] VITALS: BP 114/74
[2017-08-19 08:05] LABS: ALBUMIN 2.2 gm/dl (3.1-4.5); ALKALINE PHOSPHATASE 153 U/L (45-117); BUN 6 mg/dl (7-24); CHLORIDE 94 mmol/L (98-107); CHOLESTEROL 185 mg/dL (<200); CREATININE 0.57 mg/dL (0.55-1.02); HDL CHOLESTEROL 118 mg/dl (40-60); LDL CHOLESTEROL 51 mg/dL (9-159); PHOSPHOROUS 2.9 mg/dL (2.5-4.9); SGOT/AST 154 IU/L (3-35); SGPT/ALT 42 U/L (12-78); SODIUM 137 mmol/L (136-145); TOTAL PROTEIN 5.6 gm/dL (6.4-8.2); TRIGLYCERIDES 81 mg/dl (<150); VLDL CHOLESTEROL 16 mg/dL (6-40)
[2017-08-19 08:18] LABS: POTASSIUM 2.5 mmol/L (3.5-5.1)
[2017-08-19 08:44] LABS: VITAMIN D, 25-HYDROXY 59.1 ng/mL (30-100)
[2017-08-19 12:00] VITALS: BP 93/71
[2017-08-19 16:00] VITALS: BP 96/68
[2017-08-19 20:00] VITALS: BP 108/76
[2017-08-19] MEDS ORDERED: NEURONTIN100 MG PO (22:17)
[2017-08-19] MEDS ORDERED: DILANTIN100 MG PO (22:20)
[2017-08-19] MEDS ORDERED: VITAMIN D-32000 UNI1 PO (22:23)
[2017-08-19] MEDS ORDERED: MAGNESIUM100 M1 PO (22:24)
[2017-08-19] MEDS ORDERED: NATURE'S BLEND F1 MG PO (22:24)
[2017-08-20] VITALS: BP 123/85
[2017-08-20 06:36] LABS: BASO % 0.6 % (0.0-1.0); EOS # 0.1 10*3/uL (0.0-0.4); HEMATOCRIT 37.4 % (37.0-47.0); HEMOGLOBIN 12.3 g/dl (12.0-16.0); LYMPH # 1.5 10*3/uL (1.3-4.4); LYMPH % 41.4 % (27.0-41.0); MEAN CELL VOLUME 107.5 fl (81.0-99.0); MEAN CORPUSCULAR HGB 35.3 pg (27.0-31.0); MEAN CORPUSCULAR HGB CONC 32.9 g/dl (33.0-37.0); MEAN PLATELET VOLUME 11.5 fl (9.6-12.3); MONO # 0.2 10*3/uL (0.1-1.0); MONO % 4.7 % (3.0-9.0); NEUT # 1.8 10*3/uL (2.3-7.9); NEUT % 50.3 % (47.0-73.0); PLATELET COUNT AUTOMATED 52 10*3/uL (130-400); RED BLOOD COUNT 3.48 10*6/uL (4.10-5.10); RED CELL DISTRI WIDTH 13.2 % (0-14.5); WHITE BLOOD COUNT 3.6 10*3/uL (4.8-10.8)
[2017-08-20 08:00] VITALS: BP 115/85
[2017-08-20 08:13] LABS: RHEUMATOID ARTHRITIS FACTOR 10.3 IU/mL (0.0-13.9)
[2017-08-20 08:47] LABS: BUN 5 mg/dl (7-24); CHLORIDE 97 mmol/L (98-107); CREATININE 0.57 mg/dL (0.55-1.02); SODIUM 138 mmol/L (136-145)
[2017-08-20 09:03] LABS: POTASSIUM 4.3 mmol/L (3.5-5.1)
[2017-08-20] MEDS ORDERED: SEPTDS PO (11:38)
[2017-08-20] MEDS ORDERED: AVPAK EXTENDED100 M1 PO (11:52)
[2017-08-20] MEDS ORDERED: NEURONTIN100 MG PO (11:55)
== END 2017-08-20 14:05 | disposition home or self-care (01) | DRG 690 ==
LOC: ED 14:54 → 4E 18:39 → EDHOLD 18:39 → 4E 18:50
PROVIDERS: Emergency Medicine; Internal Medicine Hospice and Palliative Medicine; Student in an Organized Health Care Education/Training Program
DX: N39.0 Urinary tract infection, site not specified (principal); D69.6 Thrombocytopenia, unspecified; E44.0 Moderate protein-calorie malnutrition; E87.2 Acidosis; E83.39 Other disorders of phosphorus metabolism; E83.42 Hypomagnesemia; E87.1 Hypo-osmolality and hyponatremia; F33.9 Major depressive disorder, recurrent, unspecified; E86.0 Dehydration; E87.8 Other disorders of electrolyte and fluid balance, not elsewhere classified; G62.9 Polyneuropathy, unspecified; F41.9 Anxiety disorder, unspecified; G40.909 Epilepsy, unspecified, not intractable, without status epilepticus; F10.10 Alcohol abuse, uncomplicated; Y90.9 Presence of alcohol in blood, level not specified; R74.0 Nonspecific elevation of levels of transaminase and lactic acid dehydrogenase [LDH]; F12.10 Cannabis abuse, uncomplicated; B96.20 Unspecified Escherichia coli [E. coli] as the cause of diseases classified elsewhere; Z68.1 Body mass index [BMI] 19.9 or less, adult; Z90.49 Acquired absence of other specified parts of digestive tract; Z82.49 Family history of ischemic heart disease and other diseases of the circulatory system; Z80.1 Family history of malignant neoplasm of trachea, bronchus and lung; Z72.0 Tobacco use; Z71.6 Tobacco abuse counseling

== ENCOUNTER 2017-10-14 13:23 | Inpatient (IN) | payer SELFPAY ==
[~2017-10-14] VITALS: Wt 41.3 kg
[~2017-10-14 13:23] MED LIST changes: +MAGNESIUM100 M1 PO; +SEPTDS PO; +VITAMIN D-32000 UNI1 PO
[2017-10-14 13:44] VITALS: BP 115/77
[2017-10-14 14:44] LABS: BASO % 0.1 % (0.0-1.0); EOS % 0.1 % (1.0-4.0); HEMOGLOBIN 13.6 g/dl (12.0-16.0); LYMPH # 1.9 10*3/uL (1.3-4.4); LYMPH % 21.5 % (27.0-41.0); MEAN CORPUSCULAR HGB 35.8 pg (27.0-31.0); MEAN CORPUSCULAR HGB CONC 35.8 g/dl (33.0-37.0); MEAN PLATELET VOLUME 10.4 fl (9.6-12.3); MONO # 0.6 10*3/uL (0.1-1.0); MONO % 6.9 % (3.0-9.0); NEUT # 6.4 10*3/uL (2.3-7.9); PLATELET COUNT AUTOMATED 179 10*3/uL (130-400); RED CELL DISTRI WIDTH 13.4 % (0-14.5)
[2017-10-14 15:00] LABS: ALBUMIN 2.7 gm/dl (3.1-4.5); ALKALINE PHOSPHATASE 210 U/L (45-117); BUN 10 mg/dl (7-24); CHLORIDE 85 mmol/L (98-107); CREATININE 0.51 mg/dL (0.55-1.02); LIPASE 104 U/L (73-393); POTASSIUM 2.5 mmol/L (3.5-5.1); SGOT/AST 154 IU/L (3-35); SGPT/ALT 62 U/L (12-78); SODIUM 132 mmol/L (136-145); TOTAL PROTEIN 7.3 gm/dL (6.4-8.2)
[2017-10-14 15:32] LABS: BILIRUBIN 2+ (NEGATIVE); BLOOD NEGATIVE (NEGATIVE); CLARITY SL CLOUDY (CLEAR); COLOR YELLOW (YELLOW); GLUCOSE NEGATIVE (NEGATIVE); KETONE TRACE (NEGATIVE); LEUKO ESTERASE 1+ (NEGATIVE); NITRITE NEGATIVE (NEGATIVE); PH >= 9.0 (5.0-9.0)
[2017-10-14 16:10] LABS: BACTERIA 4+; EPITHELIAL CELLS 20-25; RBC 0-2 rbc/hpf (0-2); WBC TNTC wbc/hpf (0-5)
[2017-10-14 16:59] VITALS: BP 107/83
[2017-10-14 18:00] VITALS: BP 110/72
[2017-10-14 20:00] VITALS: BP 114/71
[2017-10-15] VITALS: BP 122/99
[2017-10-15 06:53] LABS: BASO % 0.2 % (0.0-1.0); EOS # 0.1 10*3/uL (0.0-0.4); EOS % 0.9 % (1.0-4.0); HEMATOCRIT 32.2 % (37.0-47.0); LYMPH # 1.9 10*3/uL (1.3-4.4); LYMPH % 34.2 % (27.0-41.0); MEAN CORPUSCULAR HGB 36.6 pg (27.0-31.0); MEAN CORPUSCULAR HGB CONC 34.5 g/dl (33.0-37.0); MEAN PLATELET VOLUME 10.3 fl (9.6-12.3); MONO # 0.5 10*3/uL (0.1-1.0); MONO % 8.4 % (3.0-9.0); NEUT # 3.1 10*3/uL (2.3-7.9); NEUT % 55.9 % (47.0-73.0); RED BLOOD COUNT 3.03 10*6/uL (4.10-5.10); RED CELL DISTRI WIDTH 13.4 % (0-14.5); WHITE BLOOD COUNT 5.6 10*3/uL (4.8-10.8)
[2017-10-15 07:05] LABS: BUN 9 mg/dl (7-24); CHLORIDE 100 mmol/L (98-107); CREATININE 0.44 mg/dL (0.55-1.02); PHOSPHOROUS 1.2 mg/dL (2.5-4.9); POTASSIUM 3.3 mmol/L (3.5-5.1); SODIUM 136 mmol/L (136-145)
[2017-10-15 07:22] LABS: HEMOGLOBIN 11.1 g/dl (12.0-16.0); MEAN CELL VOLUME 106.3 fl (81.0-99.0)
[2017-10-15 07:23] LABS: ACT PARTIAL THROMBO TIME 26.1 SECONDS (20.8-31.5); INTERNATIONAL NORM RATIO 1.2 (2.0-3.5); PLATELET COUNT AUTOMATED 106 10*3/uL (130-400)
[2017-10-15 08:00] VITALS: BP 134/96
[2017-10-15 12:00] VITALS: BP 107/80
[2017-10-15 16:00] VITALS: BP 97/69
[2017-10-15 20:00] VITALS: BP 109/71
[2017-10-15 22:00] VITALS: BP 109/71
[2017-10-16] VITALS: BP 124/96
[2017-10-16 06:22] LABS: HEMOGLOBIN 10.5 g/dl (12.0-16.0); MEAN CELL VOLUME 108.8 fl (81.0-99.0); MEAN CORPUSCULAR HGB 35.7 pg (27.0-31.0); MEAN CORPUSCULAR HGB CONC 32.8 g/dl (33.0-37.0); PLATELET COUNT AUTOMATED 94 10*3/uL (130-400); RED BLOOD COUNT 2.94 10*6/uL (4.10-5.10); RED CELL DISTRI WIDTH 13.3 % (0-14.5); WHITE BLOOD COUNT 4.9 10*3/uL (4.8-10.8)
[2017-10-16 06:45] LABS: TOTAL CELLS COUNTED 100 #CELLS
[2017-10-16 06:46] LABS: PLATELET SUFFICIENCY LOW (NORMAL)
[2017-10-16 06:50] LABS: ALBUMIN 1.9 gm/dl (3.1-4.5); ALKALINE PHOSPHATASE 135 U/L (45-117); BUN 4 mg/dl (7-24); CHLORIDE 103 mmol/L (98-107); CREATININE 0.37 mg/dL (0.55-1.02); PHOSPHOROUS 2.3 mg/dL (2.5-4.9); POTASSIUM 3.2 mmol/L (3.5-5.1); SGOT/AST 112 IU/L (3-35); SGPT/ALT 46 U/L (12-78); SODIUM 139 mmol/L (136-145)
[2017-10-16 08:00] VITALS: BP 115/88
[2017-10-16 12:00] VITALS: BP 113/79
[2017-10-16 16:00] VITALS: BP 115/85
[2017-10-16 20:00] VITALS: BP 100/71
[2017-10-17] VITALS: BP 110/82
[2017-10-17 06:32] LABS: HEMOGLOBIN 10.4 g/dl (12.0-16.0); MEAN CELL VOLUME 108.8 fl (81.0-99.0); MEAN CORPUSCULAR HGB 36.5 pg (27.0-31.0); MEAN CORPUSCULAR HGB CONC 33.5 g/dl (33.0-37.0); MEAN PLATELET VOLUME 11.3 fl (9.6-12.3); PLATELET COUNT AUTOMATED 87 10*3/uL (130-400); RED BLOOD COUNT 2.85 10*6/uL (4.10-5.10); RED CELL DISTRI WIDTH 13.3 % (0-14.5); WHITE BLOOD COUNT 4.3 10*3/uL (4.8-10.8)
[2017-10-17 07:05] LABS: ALBUMIN 1.8 gm/dl (3.1-4.5); ALKALINE PHOSPHATASE 143 U/L (45-117); BUN 2 mg/dl (7-24); CHLORIDE 101 mmol/L (98-107); POTASSIUM 3.3 mmol/L (3.5-5.1); SGOT/AST 158 IU/L (3-35); SGPT/ALT 56 U/L (12-78); SODIUM 137 mmol/L (136-145); TOTAL PROTEIN 5.1 gm/dL (6.4-8.2)
[2017-10-17 07:47] LABS: PLATELET SUFFICIENCY LOW (NORMAL); TOTAL CELLS COUNTED 100 #CELLS
[2017-10-17 08:00] VITALS: BP 123/89
[2017-10-17 12:00] VITALS: BP 112/50; BP 121/79
[2017-10-17 16:00] VITALS: BP 115/83
[2017-10-17 20:00] VITALS: BP 120/80
[2017-10-18] VITALS: BP 91/62
[2017-10-18 06:21] LABS: BASO % 0.3 % (0.0-1.0); EOS # 0.1 10*3/uL (0.0-0.4); EOS % 2.5 % (1.0-4.0); HEMATOCRIT 32.5 % (37.0-47.0); HEMOGLOBIN 11.1 g/dl (12.0-16.0); LYMPH # 1.5 10*3/uL (1.3-4.4); LYMPH % 41.1 % (27.0-41.0); MEAN CELL VOLUME 106.9 fl (81.0-99.0); MEAN CORPUSCULAR HGB 36.5 pg (27.0-31.0); MEAN CORPUSCULAR HGB CONC 34.2 g/dl (33.0-37.0); MEAN PLATELET VOLUME 11.3 fl (9.6-12.3); MONO # 0.4 10*3/uL (0.1-1.0); MONO % 10.7 % (3.0-9.0); NEUT # 1.6 10*3/uL (2.3-7.9); NEUT % 44.9 % (47.0-73.0); PLATELET COUNT AUTOMATED 97 10*3/uL (130-400); RED BLOOD COUNT 3.04 10*6/uL (4.10-5.10); RED CELL DISTRI WIDTH 13.3 % (0-14.5); WHITE BLOOD COUNT 3.7 10*3/uL (4.8-10.8)
[2017-10-18 06:33] LABS: BUN 3 mg/dl (7-24); CHLORIDE 96 mmol/L (98-107); CREATININE 0.47 mg/dL (0.55-1.02); POTASSIUM 3.9 mmol/L (3.5-5.1); SODIUM 136 mmol/L (136-145)
[2017-10-18 08:00] VITALS: BP 106/76
[2017-10-18 12:00] VITALS: BP 110/70
[2017-10-18] MEDS ORDERED: NEURONTIN100 MG PO (13:07)
[2017-10-18] MEDS ORDERED: AVPAK EXTENDED100 M1 PO (13:07)
[2017-10-18] MEDS ORDERED: MAGNESIUM OXID400 MG PO (13:07)
[2017-10-18] MEDS ORDERED: ZOFRAN ODT4 MG SL (13:09)
[2017-10-18] MEDS ORDERED: CYCLOBENZAPRINE10 MG PO (13:09)
== END 2017-10-18 17:37 | disposition home or self-care (01) | DRG 689 ==
LOC: ED 13:23 → 5E 17:16 → EDHOLD 17:16 → 5E 17:47
PROVIDERS: Family Medicine; Internal Medicine Nephrology; Physician Assistant
DX: N30.00 Acute cystitis without hematuria (principal); E43 Unspecified severe protein-calorie malnutrition; E87.8 Other disorders of electrolyte and fluid balance, not elsewhere classified; I85.00 Esophageal varices without bleeding; K70.9 Alcoholic liver disease, unspecified; E87.1 Hypo-osmolality and hyponatremia; E83.51 Hypocalcemia; F33.9 Major depressive disorder, recurrent, unspecified; E86.0 Dehydration; E87.6 Hypokalemia; D72.810 Lymphocytopenia; F41.9 Anxiety disorder, unspecified; K21.9 Gastro-esophageal reflux disease without esophagitis; G40.909 Epilepsy, unspecified, not intractable, without status epilepticus; F12.10 Cannabis abuse, uncomplicated; J44.9 Chronic obstructive pulmonary disease, unspecified; F17.210 Nicotine dependence, cigarettes, uncomplicated; K57.30 Diverticulosis of large intestine without perforation or abscess without bleeding; K76.0 Fatty (change of) liver, not elsewhere classified; B96.20 Unspecified Escherichia coli [E. coli] as the cause of diseases classified elsewhere; B96.1 Klebsiella pneumoniae [K. pneumoniae] as the cause of diseases classified elsewhere; Z80.1 Family history of malignant neoplasm of trachea, bronchus and lung; Z82.49 Family history of ischemic heart disease and other diseases of the circulatory system; Z90.49 Acquired absence of other specified parts of digestive tract; Z79.899 Other long term (current) drug therapy

== ENCOUNTER → 2017-10-19 | Outpatient (CLI) | payer SELFPAY ==
[~2017-10-19] MED LIST changes: +CYCLOBENZAPRINE10 MG PO
== END | disposition home or self-care (01) ==
LOC: RESCLI 04:19
DX: G40.909 Epilepsy, unspecified, not intractable, without status epilepticus (principal); F17.200 Nicotine dependence, unspecified, uncomplicated; F32.9 Major depressive disorder, single episode, unspecified; G47.00 Insomnia, unspecified; F41.9 Anxiety disorder, unspecified; G25.0 Essential tremor; E46 Unspecified protein-calorie malnutrition; F10.10 Alcohol abuse, uncomplicated; M54.5 Low back pain

== ENCOUNTER → 2017-11-30 | Outpatient (CLI) | payer SELFPAY | END | disposition home or self-care (01) | LOC: RESCLI 00:48 | DX: G40.909 Epilepsy, unspecified, not intractable, without status epilepticus (principal); F32.9 Major depressive disorder, single episode, unspecified; K21.9 Gastro-esophageal reflux disease without esophagitis; G47.00 Insomnia, unspecified; F41.9 Anxiety disorder, unspecified; G25.0 Essential tremor; E46 Unspecified protein-calorie malnutrition; F10.10 Alcohol abuse, uncomplicated; F17.210 Nicotine dependence, cigarettes, uncomplicated ==

== ENCOUNTER 2017-12-13 14:38 | Inpatient (IN) | payer SELFPAY ==
[~2017-12-13] VITALS: Ht 167.6 cm; Wt 39.0 kg
[2017-12-13 14:44] VITALS: BP 110/78
[2017-12-13 15:13] LABS: BASO % 0.2 % (0.0-1.0); EOS % 0.6 % (1.0-4.0); HEMATOCRIT 36.1 % (37.0-47.0); HEMOGLOBIN 12.7 g/dl (12.0-16.0); LYMPH # 2.1 10*3/uL (1.3-4.4); LYMPH % 42.9 % (27.0-41.0); MEAN CELL VOLUME 101.4 fl (81.0-99.0); MEAN CORPUSCULAR HGB 35.7 pg (27.0-31.0); MEAN CORPUSCULAR HGB CONC 35.2 g/dl (33.0-37.0); MEAN PLATELET VOLUME 9.4 fl (9.6-12.3); MONO # 0.4 10*3/uL (0.1-1.0); MONO % 7.5 % (3.0-9.0); NEUT # 2.3 10*3/uL (2.3-7.9); NEUT % 48.2 % (47.0-73.0); PLATELET COUNT AUTOMATED 110 10*3/uL (130-400); RED BLOOD COUNT 3.56 10*6/uL (4.10-5.10); RED CELL DISTRI WIDTH 14.6 % (0-14.5); WHITE BLOOD COUNT 4.8 10*3/uL (4.8-10.8)
[2017-12-13 15:29] LABS: ACETAMINOPHEN (TYLENOL) < 2.0 ug/ml (10-30); ETHYL ALCOHOL < 3.0 mg/dl (<3)
[2017-12-13 15:29] LABS: ALBUMIN 2.6 gm/dl (3.1-4.5); ALKALINE PHOSPHATASE 253 U/L (45-117); BUN 12 mg/dl (7-24); CHLORIDE 77 mmol/L (98-107); CREATININE 0.62 mg/dL (0.55-1.02); LIPASE 125 U/L (73-393); POTASSIUM 2.6 mmol/L (3.5-5.1); SGOT/AST 94 IU/L (3-35); SGPT/ALT 18 U/L (12-78); SODIUM 128 mmol/L (136-145); TOTAL PROTEIN 7.5 gm/dL (6.4-8.2)
[2017-12-13] MEDS ORDERED: ZOLOFT50 MG PO (15:58)
[2017-12-13 15:59] VITALS: BP 110/72
[2017-12-13 17:00] VITALS: BP 117/82
[2017-12-13 20:00] VITALS: BP 122/76
[2017-12-13 21:09] LABS: BILIRUBIN NEGATIVE (NEGATIVE); BLOOD NEGATIVE (NEGATIVE); CLARITY SL CLOUDY (CLEAR); COLOR YELLOW (YELLOW); GLUCOSE NEGATIVE (NEGATIVE); KETONE 1+ (NEGATIVE); LEUKO ESTERASE 1+ (NEGATIVE); NITRITE POSITIVE (NEGATIVE); PH 8.5 (5.0-9.0)
[2017-12-13 21:16] LABS: URINE AMPHETAMINES < 1000 (1000ng/ml); URINE BARBITURATES < 200 (200ng/ml); URINE BENZODIAZEPINES < 200 (200ng/ml); URINE CANNABINOIDS (THC) > 50 (50ng/ml); URINE COCAINE < 300 (300ng/ml); URINE METHADONE < 300 (300ng/ml); URINE OPIATES < 300 (300ng/ml)
[2017-12-13 21:18] LABS: URINE PHENCYCLIDINE < 25 (25ng/ml)
[2017-12-13 21:22] LABS: BACTERIA 4+; RBC 0-2 rbc/hpf (0-2)
[2017-12-14] VITALS: BP 148/94
[2017-12-14 07:00] LABS: BASO % 0.2 % (0.0-1.0); EOS # 0.1 10*3/uL (0.0-0.4); EOS % 1.9 % (1.0-4.0); HEMATOCRIT 32.8 % (37.0-47.0); HEMOGLOBIN 10.9 g/dl (12.0-16.0); LYMPH # 1.9 10*3/uL (1.3-4.4); MEAN CORPUSCULAR HGB CONC 33.2 g/dl (33.0-37.0); MEAN PLATELET VOLUME 10.1 fl (9.6-12.3); MONO # 0.3 10*3/uL (0.1-1.0); MONO % 8.3 % (3.0-9.0); NEUT # 1.8 10*3/uL (2.3-7.9); NEUT % 43.1 % (47.0-73.0); PLATELET COUNT AUTOMATED 82 10*3/uL (130-400); RED BLOOD COUNT 3.11 10*6/uL (4.10-5.10); RED CELL DISTRI WIDTH 14.7 % (0-14.5); WHITE BLOOD COUNT 4.1 10*3/uL (4.8-10.8)
[2017-12-14 07:03] LABS: MEAN CELL VOLUME 105.5 fl (81.0-99.0)
[2017-12-14 07:28] LABS: ACT PARTIAL THROMBO TIME 25.8 SECONDS (20.8-31.5); INTERNATIONAL NORM RATIO 1.1 (2.0-3.5)
[2017-12-14 07:30] LABS: ALKALINE PHOSPHATASE 198 U/L (45-117); BUN 7 mg/dl (7-24); CHLORIDE 93 mmol/L (98-107); CREATININE 0.45 mg/dL (0.55-1.02); PHOSPHOROUS 1.3 mg/dL (2.5-4.9); POTASSIUM 2.5 mmol/L (3.5-5.1); SGOT/AST 81 IU/L (3-35); SGPT/ALT 16 U/L (12-78); SODIUM 134 mmol/L (136-145); TOTAL PROTEIN 5.9 gm/dL (6.4-8.2)
[2017-12-14 07:47] LABS: PHENYTOIN (DILANTIN) < 0.4 ug/ml (10-20)
[2017-12-14 08:00] VITALS: BP 146/89
[2017-12-14 12:00] VITALS: BP 109/81
[2017-12-14 16:00] VITALS: BP 129/81
[2017-12-14 20:00] VITALS: BP 119/66
[2017-12-15] VITALS: BP 118/69
[2017-12-15 06:14] LABS: HEMATOCRIT 31.8 % (37.0-47.0); HEMOGLOBIN 10.3 g/dl (12.0-16.0); MEAN CELL VOLUME 108.5 fl (81.0-99.0); MEAN CORPUSCULAR HGB 35.2 pg (27.0-31.0); MEAN CORPUSCULAR HGB CONC 32.4 g/dl (33.0-37.0); MEAN PLATELET VOLUME 10.2 fl (9.6-12.3); PLATELET COUNT AUTOMATED 75 10*3/uL (130-400); RED BLOOD COUNT 2.93 10*6/uL (4.10-5.10); RED CELL DISTRI WIDTH 14.7 % (0-14.5); WHITE BLOOD COUNT 4.6 10*3/uL (4.8-10.8)
[2017-12-15 06:28] LABS: ALBUMIN 1.9 gm/dl (3.1-4.5); ALKALINE PHOSPHATASE 175 U/L (45-117); BUN 6 mg/dl (7-24); CHLORIDE 102 mmol/L (98-107); CREATININE 0.38 mg/dL (0.55-1.02); PHOSPHOROUS 2.9 mg/dL (2.5-4.9); SGOT/AST 68 IU/L (3-35); SGPT/ALT 19 U/L (12-78); SODIUM 137 mmol/L (136-145); TOTAL PROTEIN 5.6 gm/dL (6.4-8.2)
[2017-12-15 06:33] LABS: POTASSIUM 3.8 mmol/L (3.5-5.1)
[2017-12-15 07:06] LABS: PLATELET SUFFICIENCY LOW (NORMAL); TOTAL CELLS COUNTED 100 #CELLS
[2017-12-15 08:00] VITALS: BP 112/65
[2017-12-15] MEDS ORDERED: PROTONIX40 MG PO (12:06)
[2017-12-15] MEDS ORDERED: DOXYCYCLINE100 M3 PO (12:06)
[2017-12-15] MEDS ORDERED: MARINOL2.5 M1 PO (12:06)
== END 2017-12-15 13:09 | disposition home or self-care (01) | DRG 640 ==
LOC: ED 14:38 → 5E 15:52 → EDHOLD 15:52 → 5E 16:07
PROVIDERS: Family Medicine; Nurse Practitioner Family
DX: E87.1 Hypo-osmolality and hyponatremia (principal); E43 Unspecified severe protein-calorie malnutrition; D69.6 Thrombocytopenia, unspecified; F33.9 Major depressive disorder, recurrent, unspecified; N39.0 Urinary tract infection, site not specified; Z68.1 Body mass index [BMI] 19.9 or less, adult; E87.6 Hypokalemia; E87.8 Other disorders of electrolyte and fluid balance, not elsewhere classified; D75.89 Other specified diseases of blood and blood-forming organs; F17.210 Nicotine dependence, cigarettes, uncomplicated; D72.810 Lymphocytopenia; G40.909 Epilepsy, unspecified, not intractable, without status epilepticus; F12.10 Cannabis abuse, uncomplicated; F41.9 Anxiety disorder, unspecified; G62.9 Polyneuropathy, unspecified; E55.9 Vitamin D deficiency, unspecified; Z90.49 Acquired absence of other specified parts of digestive tract; Z82.49 Family history of ischemic heart disease and other diseases of the circulatory system; Z80.1 Family history of malignant neoplasm of trachea, bronchus and lung; Z79.899 Other long term (current) drug therapy; Z71.89 Other specified counseling

== ENCOUNTER 2018-01-13 20:58 | Emergency (ER) | payer SELFPAY ==
[~2018-01-13] VITALS: Ht 165.1 cm; Wt 40.4 kg
[~2018-01-13 20:58] MED LIST changes: +DOXYCYCLINE100 M3 PO; +MARINOL2.5 M1 PO
== END 2018-01-14 01:05 | disposition home or self-care (01) ==
LOC: ED 20:58
DX: S90.31XA Contusion of right foot, initial encounter (principal); S09.90XA Unspecified injury of head, initial encounter; M54.2 Cervicalgia; M25.511 Pain in right shoulder; F17.200 Nicotine dependence, unspecified, uncomplicated; F12.90 Cannabis use, unspecified, uncomplicated; G40.909 Epilepsy, unspecified, not intractable, without status epilepticus; Z90.49 Acquired absence of other specified parts of digestive tract; Z79.899 Other long term (current) drug therapy; Y04.0XXA Assault by unarmed brawl or fight, initial encounter; Y93.89 Activity, other specified; Y92.89 Other specified places as the place of occurrence of the external cause; Y99.9 Unspecified external cause status

== ENCOUNTER 2018-02-07 23:21 | Emergency (ER) | payer OTHER ==
[~2018-02-07] VITALS: Ht 165.1 cm; Wt 38.6 kg
[2018-02-08 00:22] LABS: HEMATOCRIT 37.1 % (37.0-47.0); HEMOGLOBIN 12.3 g/dl (12.0-16.0); MEAN CELL VOLUME 109.8 fl (81.0-99.0); MEAN CORPUSCULAR HGB 36.4 pg (27.0-31.0); MEAN CORPUSCULAR HGB CONC 33.2 g/dl (33.0-37.0); MEAN PLATELET VOLUME 9.8 fl (9.6-12.3); PLATELET COUNT AUTOMATED 164 10*3/uL (130-400); RED BLOOD COUNT 3.38 10*6/uL (4.10-5.10); RED CELL DISTRI WIDTH 13.2 % (0-14.5); WHITE BLOOD COUNT 8.7 10*3/uL (4.8-10.8)
[2018-02-08 00:38] LABS: ALBUMIN 2.4 gm/dl (3.1-4.5); ALKALINE PHOSPHATASE 299 U/L (45-117); BUN 4 mg/dl (7-24); CHLORIDE 105 mmol/L (98-107); CREATININE 0.49 mg/dL (0.55-1.02); POTASSIUM 2.9 mmol/L (3.5-5.1); SGOT/AST 301 IU/L (3-35); SGPT/ALT 80 U/L (12-78); SODIUM 147 mmol/L (136-145)
[2018-02-08 00:42] LABS: PLATELET SUFFICIENCY NORMAL (NORMAL); TOTAL CELLS COUNTED 100 #CELLS
[2018-02-08 01:59] LABS: BILIRUBIN NEGATIVE (NEGATIVE); BLOOD NEGATIVE (NEGATIVE); CLARITY CLEAR (CLEAR); COLOR YELLOW (YELLOW); GLUCOSE NEGATIVE (NEGATIVE); KETONE NEGATIVE (NEGATIVE); LEUKO ESTERASE NEGATIVE (NEGATIVE); NITRITE NEGATIVE (NEGATIVE); PH 6.5 (5.0-9.0); SPECIFIC GRAVITY <= 1.005 (1.005-1.030)
[2018-02-08 02:05] LABS: EPITHELIAL CELLS 35-40; WBC 0-2 wbc/hpf (0-5)
[2018-02-08 02:09] LABS: URINE AMPHETAMINES < 1000 (1000ng/ml); URINE BARBITURATES < 200 (200ng/ml); URINE BENZODIAZEPINES < 200 (200ng/ml); URINE CANNABINOIDS (THC) < 50 (50ng/ml); URINE COCAINE < 300 (300ng/ml); URINE METHADONE < 300 (300ng/ml); URINE OPIATES < 300 (300ng/ml); URINE PHENCYCLIDINE < 25 (25ng/ml)
== END 2018-02-08 02:20 | disposition short-term general hospital (02) ==
LOC: ED 23:21
PROVIDERS: Nurse Practitioner
DX: L51.1 Stevens-Johnson syndrome (principal); R10.84 Generalized abdominal pain; M53.3 Sacrococcygeal disorders, not elsewhere classified; Z79.899 Other long term (current) drug therapy; Z90.49 Acquired absence of other specified parts of digestive tract; F17.200 Nicotine dependence, unspecified, uncomplicated; F12.10 Cannabis abuse, uncomplicated

== ENCOUNTER → 2018-03-30 | Outpatient (CLI) | payer OTHER ==
[2018-03-30 11:07] LABS: BUN 7 mg/dl (7-24); CHLORIDE 86 mmol/L (98-107); CREATININE 0.77 mg/dL (0.55-1.02); SODIUM 127 mmol/L (136-145)
[2018-03-30 11:11] LABS: POTASSIUM 4.1 mmol/L (3.5-5.1)
== END | disposition home or self-care (01) ==
LOC: LAB 10:42
PROVIDERS: Nurse Practitioner Family
DX: E87.1 Hypo-osmolality and hyponatremia (principal)

== ENCOUNTER → 2018-04-11 | Outpatient (CLI) | payer OTHER ==
[2018-04-11 16:04] LABS: ALBUMIN 2.3 gm/dl (3.1-4.5); ALKALINE PHOSPHATASE 190 U/L (45-117); BUN 3 mg/dl (7-24); CHLORIDE 93 mmol/L (98-107); CREATININE 0.63 mg/dL (0.55-1.02); SGOT/AST 161 IU/L (3-35); SGPT/ALT 51 U/L (12-78); SODIUM 138 mmol/L (136-145); TOTAL PROTEIN 6.3 gm/dL (6.4-8.2)
== END | disposition home or self-care (01) ==
LOC: LAB 15:09
PROVIDERS: Nurse Practitioner Family
DX: G40.909 Epilepsy, unspecified, not intractable, without status epilepticus (principal); G47.00 Insomnia, unspecified; K21.9 Gastro-esophageal reflux disease without esophagitis; E87.1 Hypo-osmolality and hyponatremia; E87.6 Hypokalemia; R63.0 Anorexia; R11.0 Nausea; R74.8 Abnormal levels of other serum enzymes

== ENCOUNTER → 2018-04-14 | Outpatient (CLI) | payer OTHER ==
[2018-04-14 11:01] LABS: BUN 4 mg/dl (7-24); CHLORIDE 101 mmol/L (98-107); CREATININE 0.68 mg/dL (0.55-1.02); POTASSIUM 3.2 mmol/L (3.5-5.1); SODIUM 140 mmol/L (136-145)
== END | disposition home or self-care (01) ==
LOC: LAB 09:24 → MAMMO 09:30 → US 10:00
PROVIDERS: Nurse Practitioner Family
DX: Z12.31 Encounter for screening mammogram for malignant neoplasm of breast (principal); K76.0 Fatty (change of) liver, not elsewhere classified; G40.909 Epilepsy, unspecified, not intractable, without status epilepticus; E87.1 Hypo-osmolality and hyponatremia; E74.8 Other specified disorders of carbohydrate metabolism; R92.1 Mammographic calcification found on diagnostic imaging of breast

== ENCOUNTER → 2018-06-09 | Outpatient (CLI) | payer OTHER ==
[2018-06-09 14:34] LABS: BASO % 0.3 % (0.0-1.0); EOS # 0.1 10*3/uL (0.0-0.4); EOS % 1.3 % (1.0-4.0); HEMATOCRIT 36.3 % (37.0-47.0); HEMOGLOBIN 12.5 g/dl (12.0-16.0); LYMPH # 1.7 10*3/uL (1.3-4.4); LYMPH % 28.2 % (27.0-41.0); MEAN CELL VOLUME 105.8 fl (81.0-99.0); MEAN CORPUSCULAR HGB 36.4 pg (27.0-31.0); MEAN CORPUSCULAR HGB CONC 34.4 g/dl (33.0-37.0); MEAN PLATELET VOLUME 10.1 fl (9.6-12.3); MONO # 0.4 10*3/uL (0.1-1.0); MONO % 6.3 % (3.0-9.0); NEUT # 3.9 10*3/uL (2.3-7.9); NEUT % 63.6 % (47.0-73.0); PLATELET COUNT AUTOMATED 71 10*3/uL (130-400); RED BLOOD COUNT 3.43 10*6/uL (4.10-5.10); WHITE BLOOD COUNT 6.2 10*3/uL (4.8-10.8)
[2018-06-09 15:03] LABS: ALBUMIN 3.1 gm/dl (3.1-4.5); ALKALINE PHOSPHATASE 214 U/L (45-117); BUN 6 mg/dl (7-24); CHLORIDE 90 mmol/L (98-107); POTASSIUM 2.6 mmol/L (3.5-5.1); SGOT/AST 231 IU/L (3-35); SGPT/ALT 52 U/L (12-78); SODIUM 135 mmol/L (136-145); TOTAL PROTEIN 7.4 gm/dL (6.4-8.2)
[2018-06-09 15:24] LABS: VITAMIN D, 25-HYDROXY 45.3 ng/mL (30-100)
== END | disposition home or self-care (01) ==
LOC: LAB 14:18
PROVIDERS: Nurse Practitioner Family
DX: F32.9 Major depressive disorder, single episode, unspecified (principal); F10.20 Alcohol dependence, uncomplicated; R63.0 Anorexia; Z72.0 Tobacco use

== ENCOUNTER → 2018-06-17 | Outpatient (CLI) | payer OTHER ==
--- NOTE | ~2018-06-17 | PR ---
[place], [place] PROGRESS NOTE NAME: REJI SMITH UNIT #: [id number] ROOM: DOCTOR: WILBERT MARTE,EBONIE Wade BIRTHDATE: [birth year] DOS: 06/22/2018 TELEPHONE CONVERSATION This documents a telephone conversation with the patient. She is admitted at [facility] in room 662. I contacted that floor at [phone]. I spoke with the patient. She was doing reasonably well. They are repeating the MRI and they are doing a bone biopsy on Wednesday. No surgery yet. After we spoke on Wednesday, she did proceed to the Emergency Room and she was transferred from the Emergency Room to [facility] Wednesday night around midnight. I did send her my best wishes and I wish her a speedy recovery as possible. She had the opportunity to ask any questions and she understands and agrees with the treatment plan as outlined. Ebonie Atkins MD CM:PNTRANS [id number] EBONIE ATKINS MD 06/23/18 0628 interface
== END | disposition home or self-care (01) ==
LOC: MRI 10:48
DX: S16.1XXA Strain of muscle, fascia and tendon at neck level, initial encounter (principal); S46.811A Strain of other muscles, fascia and tendons at shoulder and upper arm level, right arm, initial encounter; M48.02 Spinal stenosis, cervical region; M50.223 Other cervical disc displacement at C6-C7 level; M50.323 Other cervical disc degeneration at C6-C7 level; M79.89 Other specified soft tissue disorders; M25.78 Osteophyte, vertebrae; M51.44 Schmorl's nodes, thoracic region; X58.XXXA Exposure to other specified factors, initial encounter; Y93.89 Activity, other specified; Y92.89 Other specified places as the place of occurrence of the external cause; Y99.8 Other external cause status

== ENCOUNTER 2018-06-19 15:17 | Emergency (ER) | payer OTHER ==
[~2018-06-19] VITALS: Ht 167.6 cm; Wt 39.5 kg
[2018-06-19 16:12] LABS: HEMATOCRIT 31.7 % (37.0-47.0); HEMOGLOBIN 10.6 g/dl (12.0-16.0); MEAN CELL VOLUME 108.9 fl (81.0-99.0); MEAN CORPUSCULAR HGB 36.4 pg (27.0-31.0); MEAN CORPUSCULAR HGB CONC 33.4 g/dl (33.0-37.0); MEAN PLATELET VOLUME 9.2 fl (9.6-12.3); PLATELET COUNT AUTOMATED 155 10*3/uL (130-400); RED BLOOD COUNT 2.91 10*6/uL (4.10-5.10); RED CELL DISTRI WIDTH 12.1 % (0-14.5); WHITE BLOOD COUNT 6.4 10*3/uL (4.8-10.8)
[2018-06-19 16:32] LABS: ALBUMIN 2.6 gm/dl (3.1-4.5); ALKALINE PHOSPHATASE 202 U/L (45-117); BUN 5 mg/dl (7-24); CHLORIDE 100 mmol/L (98-107); POTASSIUM 3.4 mmol/L (3.5-5.1); SGOT/AST 191 IU/L (3-35); SGPT/ALT 49 U/L (12-78); SODIUM 137 mmol/L (136-145); TOTAL PROTEIN 6.2 gm/dL (6.4-8.2)
[2018-06-19 16:40] LABS: BILIRUBIN 1+ (NEGATIVE); BLOOD TRACE-INTACT (NEGATIVE); CLARITY SL CLOUDY (CLEAR); COLOR YELLOW (YELLOW); GLUCOSE NEGATIVE (NEGATIVE); KETONE TRACE (NEGATIVE); LEUKO ESTERASE 1+ (NEGATIVE); NITRITE POSITIVE (NEGATIVE); SPECIFIC GRAVITY 1.025 (1.005-1.030); UROBILINOGEN 0.2 E.U./dl (0.2-1.0)
[2018-06-19 16:46] LABS: TOTAL CELLS COUNTED 100 #CELLS
[2018-06-19 16:47] LABS: PLATELET SUFFICIENCY NORMAL (NORMAL)
[2018-06-19 16:49] LABS: URINE AMPHETAMINES < 1000 (1000ng/ml); URINE BARBITURATES < 200 (200ng/ml); URINE BENZODIAZEPINES < 200 (200ng/ml); URINE CANNABINOIDS (THC) < 50 (50ng/ml); URINE COCAINE < 300 (300ng/ml); URINE METHADONE < 300 (300ng/ml); URINE OPIATES < 300 (300ng/ml)
[2018-06-19 17:00] LABS: BACTERIA 3+; WBC 16-20 wbc/hpf (0-5)
[2018-06-19 17:03] LABS: URINE PHENCYCLIDINE < 25 (25ng/ml)
== END 2018-06-20 00:21 | disposition short-term general hospital (02) ==
LOC: ED 15:17
PROVIDERS: Physician Assistant
DX: M46.22 Osteomyelitis of vertebra, cervical region (principal); M79.601 Pain in right arm; M25.511 Pain in right shoulder; R51 Headache; F17.200 Nicotine dependence, unspecified, uncomplicated; Z85.41 Personal history of malignant neoplasm of cervix uteri; Z90.49 Acquired absence of other specified parts of digestive tract; Z79.2 Long term (current) use of antibiotics; Z79.899 Other long term (current) drug therapy

== ENCOUNTER → 2018-08-08 | Outpatient (CLI) | payer OTHER ==
[~2018-08-08] MED LIST changes: +ALLEGRA-D 24 H1 EACH PO; +DOXYCYCLINE100 MG PO; +FLONASE ALLERG9.9 ML NAS; +KEFLEX500 M1 PO; +Magnesium Oxid400 MG PO; +POTASSIUM CHLO20 ME3 PO; +PREDNISONE10 MG PO; +TESSALON PERLE100 M1 PO; +TOPIRAMATE50 M2 PO; +ZOFRAN4 MG PO
[2018-08-09 08:12] LABS: HEPATITIS B SURFACE AG Negative (Negative); HEPATITIS C VIRUS ANTIBODY 0.3 s/co (0.0-0.9)
== END | disposition home or self-care (01) ==
LOC: LAB 15:47
PROVIDERS: Nurse Practitioner Family
DX: F10.20 Alcohol dependence, uncomplicated (principal); R74.0 Nonspecific elevation of levels of transaminase and lactic acid dehydrogenase [LDH]

== ENCOUNTER → 2018-08-24 | Outpatient (CLI) | payer OTHER ==
[~2018-08-24] MED LIST changes: -ALLEGRA-D 24 H1 EACH PO; -DOXYCYCLINE100 MG PO; -FLONASE ALLERG9.9 ML NAS; -KEFLEX500 M1 PO; -Magnesium Oxid400 MG PO; -POTASSIUM CHLO20 ME3 PO; -PREDNISONE10 MG PO; -TESSALON PERLE100 M1 PO; -TOPIRAMATE50 M2 PO; -ZOFRAN4 MG PO
== END | disposition home or self-care (01) ==
LOC: RAD 12:06
DX: M50.323 Other cervical disc degeneration at C6-C7 level (principal); M43.22 Fusion of spine, cervical region

== ENCOUNTER → 2018-09-09 | Day surgery (SDC) | payer OTHER ==
[~2018-09-09] VITALS: Ht 165.1 cm; Wt 39.5 kg
[~2018-09-09] MED LIST changes: +ALLEGRA-D 24 H1 EACH PO; +DOXYCYCLINE100 MG PO; +FLONASE ALLERG9.9 ML NAS; +KEFLEX500 M1 PO; +Magnesium Oxid400 MG PO; +POTASSIUM CHLO20 ME3 PO; +PREDNISONE10 MG PO; +TESSALON PERLE100 M1 PO; +TOPIRAMATE50 M2 PO; +ZOFRAN4 MG PO
--- NOTE | ~2018-09-09 | O ---
[place], [place] OPERATIVE NOTE NAME: REJI SMITH UNIT #: [id number] ROOM: DOCTOR: ERIK CROCKER MD BIRTHDATE: [birth year] DOS: 09/09/2018 HISTORY OF PRESENT ILLNESS: This is a 43-year-old patient who presented with a chief complaint of epigastric distress, gastritis, history of drinking alcohol up to one gallon per day. ALLERGIES: No known medications. FAMILY HISTORY: Noncontributory. PAST SURGICAL HISTORY: Cervical fusion. PAST MEDICAL HISTORY: Seizure and is on Depakote. SOCIAL HISTORY: Smoker and alcohol consumption as a social habits. PROCEDURE: Today's procedure part of investigation is panendoscopy plus biopsy. PREMEDICATION: Propofol. SCOPE: Olympus forward-viewing gastroscope Q10 video. REPORT: After putting the patient in the left lateral position and application of lubricant to the scope, the scope was introduced. Thereafter, under direct visualization, advanced through the length of esophagus without difficulty. There is no esophageal varicosity. Gastric pouch was entered. Alcoholic gastritis seen. Antral biopsy obtained. Duodenal bulb, second and third part within normal limits. GI reflexion of the scope reveals cardia to be benign. Air was suctioned out. The patient was extubated, tolerated the procedure well. IMPRESSION: Alcoholic gastritis. No esophageal varicosity. PLAN AND DISCUSSION: Omeprazole 20 mg 1 daily and to abstain from smoking and alcohol. FOLLOWUP: Routinely with you in office. [place], [place] OPERATIVE NOTE NAME: REJI SMITH UNIT #: [id number] ROOM: DOCTOR: ERIK CROCKER MD BIRTHDATE: [birth year] ERIK CROCKER MD CM:OPRECORD:OPERATIVE NOTE [id number] ERIK CROCKER MD 09/21/18 1145 interface
[2018-09-09 13:29] VITALS: BP 140/86
[2018-09-09 13:48] VITALS: BP 106/82
[2018-09-09 14:03] VITALS: BP 134/88
[2018-09-09 14:18] VITALS: BP 134/88
== END | disposition home or self-care (01) ==
LOC: SDC 09-06 16:15
DX: K29.50 Unspecified chronic gastritis without bleeding (principal); K29.20 Alcoholic gastritis without bleeding; K21.9 Gastro-esophageal reflux disease without esophagitis; F10.988 Alcohol use, unspecified with other alcohol-induced disorder; F17.210 Nicotine dependence, cigarettes, uncomplicated; F32.9 Major depressive disorder, single episode, unspecified; F41.9 Anxiety disorder, unspecified; Z90.49 Acquired absence of other specified parts of digestive tract; Z98.890 Other specified postprocedural states; Z79.899 Other long term (current) drug therapy; Z85.41 Personal history of malignant neoplasm of cervix uteri

== ENCOUNTER 2018-11-18 02:46 | Emergency (ER) | payer OTHER ==
[~2018-11-18] VITALS: Ht 167.6 cm; Wt 43.1 kg
[~2018-11-18 02:46] MED LIST changes: -KEFLEX500 M1 PO; -ZOFRAN4 MG PO
[2018-11-18] MEDS ORDERED: KEFLEX500 M1 PO ×2 (03:35→13:39)
== END 2018-11-18 03:54 | disposition home or self-care (01) ==
LOC: ED 02:46
DX: S81.812A Laceration without foreign body, left lower leg, initial encounter (principal); L08.9 Local infection of the skin and subcutaneous tissue, unspecified; G40.909 Epilepsy, unspecified, not intractable, without status epilepticus; G62.9 Polyneuropathy, unspecified; F17.200 Nicotine dependence, unspecified, uncomplicated; Z79.899 Other long term (current) drug therapy; W54.8XXA Other contact with dog, initial encounter; Y93.01 Activity, walking, marching and hiking; Y92.89 Other specified places as the place of occurrence of the external cause; Y99.8 Other external cause status

== ENCOUNTER 2018-11-30 15:05 | Emergency (ER) | payer OTHER ==
[~2018-11-30] VITALS: Ht 165.1 cm; Wt 42.6 kg
[~2018-11-30 15:05] MED LIST changes: +KEFLEX500 M1 PO
[2018-11-30 17:15] LABS: BILIRUBIN NEGATIVE (NEGATIVE); BLOOD NEGATIVE (NEGATIVE); CLARITY CLEAR (CLEAR); COLOR YELLOW (YELLOW); GLUCOSE NEGATIVE (NEGATIVE); KETONE NEGATIVE (NEGATIVE); LEUKO ESTERASE NEGATIVE (NEGATIVE); NITRITE NEGATIVE (NEGATIVE); PH 7.5 (5.0-9.0); SPECIFIC GRAVITY 1.015 (1.005-1.030); UROBILINOGEN 0.2 E.U./dl (0.2-1.0)
[2018-11-30 17:22] LABS: BACTERIA 1+; EPITHELIAL CELLS 0-2; MUCOUS 1+; WBC 0-2 wbc/hpf (0-5)
[2018-11-30] MEDS ORDERED: ZOFRAN4 MG PO (17:45)
== END 2018-11-30 18:15 | disposition home or self-care (01) ==
LOC: ED 15:05
PROVIDERS: Physician Assistant
DX: R11.2 Nausea with vomiting, unspecified (principal); R19.7 Diarrhea, unspecified; F17.200 Nicotine dependence, unspecified, uncomplicated; Z90.49 Acquired absence of other specified parts of digestive tract; Z88.8 Allergy status to other drugs, medicaments and biological substances; Z79.899 Other long term (current) drug therapy

== ENCOUNTER 2019-05-17 19:19 | Emergency (ER) | payer OTHER ==
[~2019-05-17] VITALS: Ht 165.1 cm; Wt 38.6 kg
[~2019-05-17 19:19] MED LIST changes: +ZOFRAN4 MG PO
[2019-05-17 20:13] LABS: HEMATOCRIT 33.6 % (37.0-47.0); HEMOGLOBIN 11.4 g/dl (12.0-16.0); MEAN CELL VOLUME 102.4 fl (81.0-99.0); MEAN CORPUSCULAR HGB 34.8 pg (27.0-31.0); MEAN CORPUSCULAR HGB CONC 33.9 g/dl (33.0-37.0); MEAN PLATELET VOLUME 11.7 fl (9.6-12.3); RED BLOOD COUNT 3.28 10*6/uL (4.10-5.10); RED CELL DISTRI WIDTH 12.9 % (0-14.5); WHITE BLOOD COUNT 7.6 10*3/uL (4.8-10.8)
[2019-05-17 20:16] LABS: PLATELET COUNT AUTOMATED 25 10*3/uL (130-400)
[2019-05-17 20:31] LABS: ALKALINE PHOSPHATASE 250 U/L (45-117); BASOPHILS 2 % (0-1); BUN 12 mg/dl (7-24); CHLORIDE 95 mmol/L (98-107); CREATININE 0.41 mg/dL (0.55-1.02); LIPASE 207 U/L (73-393); PLATELET SUFFICIENCY LOW (NORMAL); SGOT/AST 270 IU/L (3-35); SGPT/ALT 48 U/L (12-78); SODIUM 137 mmol/L (136-145); TOTAL CELLS COUNTED 100 #CELLS; TOTAL PROTEIN 7.1 gm/dL (6.4-8.2)
[2019-05-17 21:17] LABS: INTERNATIONAL NORM RATIO 1.2 (2.0-3.5)
== END 2019-05-17 23:35 | disposition short-term general hospital (02) ==
LOC: ED 19:19
PROVIDERS: Internal Medicine
DX: K92.2 Gastrointestinal hemorrhage, unspecified (principal); R11.10 Vomiting, unspecified; R04.0 Epistaxis; R53.1 Weakness; R19.00 Intra-abdominal and pelvic swelling, mass and lump, unspecified site; G62.9 Polyneuropathy, unspecified; K21.9 Gastro-esophageal reflux disease without esophagitis; G40.909 Epilepsy, unspecified, not intractable, without status epilepticus; F17.200 Nicotine dependence, unspecified, uncomplicated; Z79.899 Other long term (current) drug therapy; Z85.41 Personal history of malignant neoplasm of cervix uteri

== ENCOUNTER → 2019-06-08 | Outpatient (CLI) | payer OTHER ==
[2019-06-08 15:03] LABS: HEMATOCRIT 34.3 % (37.0-47.0); HEMOGLOBIN 10.7 g/dl (12.0-16.0); MEAN CELL VOLUME 108.9 fl (81.0-99.0); MEAN CORPUSCULAR HGB CONC 31.2 g/dl (33.0-37.0); MEAN PLATELET VOLUME 9.6 fl (9.6-12.3); PLATELET COUNT AUTOMATED 205 10*3/uL (130-400); RED BLOOD COUNT 3.15 10*6/uL (4.10-5.10); RED CELL DISTRI WIDTH 13.7 % (0-14.5); WHITE BLOOD COUNT 8.8 10*3/uL (4.8-10.8)
[2019-06-08 15:32] LABS: ALBUMIN 2.9 gm/dl (3.1-4.5); ALKALINE PHOSPHATASE 152 U/L (45-117); BUN 12 mg/dl (7-24); CHLORIDE 107 mmol/L (98-107); CREATININE 0.52 mg/dL (0.55-1.02); POTASSIUM 3.5 mmol/L (3.5-5.1); SGOT/AST 169 IU/L (3-35); SGPT/ALT 43 U/L (12-78); SODIUM 141 mmol/L (136-145); TOTAL PROTEIN 7.3 gm/dL (6.4-8.2)
[2019-06-08 15:39] LABS: BASOPHILS 1 % (0-1); PLATELET SUFFICIENCY NORMAL (NORMAL); TOTAL CELLS COUNTED 100 #CELLS
== END | disposition home or self-care (01) ==
LOC: LAB 14:36
PROVIDERS: Nurse Practitioner Family
DX: E87.6 Hypokalemia (principal)

== ENCOUNTER 2019-07-06 13:25 | Inpatient (IN) | payer OTHER ==
[~2019-07-06] VITALS: Ht 165.1 cm; Wt 43.2 kg
[2019-07-06 13:25] VITALS: BP 100/65
[2019-07-06 16:10] LABS: HEMATOCRIT 34.6 % (37.0-47.0); HEMOGLOBIN 10.7 g/dl (12.0-16.0); MEAN CELL VOLUME 105.5 fl (81.0-99.0); MEAN CORPUSCULAR HGB 32.6 pg (27.0-31.0); MEAN CORPUSCULAR HGB CONC 30.9 g/dl (33.0-37.0); MEAN PLATELET VOLUME 11.4 fl (9.6-12.3); PLATELET COUNT AUTOMATED 102 10*3/uL (130-400); RED BLOOD COUNT 3.28 10*6/uL (4.10-5.10); RED CELL DISTRI WIDTH 13.1 % (0-14.5); WHITE BLOOD COUNT 10.9 10*3/uL (4.8-10.8)
[2019-07-06 16:26] LABS: ALBUMIN 2.5 gm/dl (3.1-4.5); ALKALINE PHOSPHATASE 194 U/L (45-117); BUN 21 mg/dl (7-24); CHLORIDE 110 mmol/L (98-107); CREATININE 1.08 mg/dL (0.55-1.02); POTASSIUM 4.5 mmol/L (3.5-5.1); SGOT/AST 26 IU/L (3-35); SODIUM 139 mmol/L (136-145); TOTAL PROTEIN 6.9 gm/dL (6.4-8.2)
[2019-07-06 16:28] LABS: SGPT/ALT 17 U/L (12-78)
[2019-07-06 16:32] LABS: TOTAL CELLS COUNTED 100 #CELLS
[2019-07-06 16:33] LABS: BURR CELLS FEW; PLATELET SUFFICIENCY LOW (NORMAL)
[2019-07-06 20:00] VITALS: BP 113/64
[2019-07-06 22:00] VITALS: BP 113/64
--- NOTE | 2019-07-06 22:00 | NUR ---
The assessment has been completed. Time: 2199 A 44 year old FEMALE admitted to under services of NIA MELENDREZ DO. Pt. arrived via ambulatory from ER. Chief complaint: COUGH,CONGESTION,FEVERS,NAUSEA,VOMITING AND DIARRHEA FOR THREE DAYS. RONNAM,EUGENIO
--- NOTE | 2019-07-06 22:51 | NUR ---
PT C/O 01/09 RIB PAIN FROM COUGHING AND REQUESTING SOMETHING TO HELP HER SLEEP. MEDICATED PER ORDER. WILL MONITOR FOR RELIEF. VOICES NO OTHER CONCERNS AT THIS TIME. RESTING IN BED. CALL LIGHT WITHIN REACH.
[2019-07-07] VITALS (8 sets, daily range): BP systolic 106–130; BP diastolic 66–81
--- NOTE | 2019-07-07 00:36 | NUR ---
24 HR chart check completed.
--- NOTE | 2019-07-07 01:33 | NUR ---
Hep Lock discontinued. Site asymptomatic. Pressure applied. Sterile dressing applied. EUGENIO ESTRELLA
--- NOTE | 2019-07-07 01:33 | NUR ---
IV started right forearm with #24 protective cath after 1 attempts. Site prepped with Chloroprep. Sterile dressing applied. Patient tolerated procedure well. EUGENIO ESTRELLA
--- NOTE | 2019-07-07 02:08 | NUR ---
Patient resting quietly with no c/o or s/s of discomfort. Respirations easy and regular. Vital signs stable. No overt distress. Call light within reach. HISSOM,EUGENIO
--- NOTE | 2019-07-07 05:09 | NUR ---
PT COMPLAINS OF ACHING 5/10 ABD AND BACK PAIN FROM COUGHING. MEDICATED PER ORDER. WILL MONITOR FOR RELIEF. VOICES NO OTHER CONCERNS AT THIS TIME. RESTING IN BED. CALL LIGHT WITHIN REACH
--- NOTE | 2019-07-07 05:58 | NUR ---
IV started left forearm with #22 protective cath after 1 attempts. Site prepped with Chloroprep. Sterile dressing applied. Patient tolerated procedure well. EUGENIO ESTRELLA
--- NOTE | 2019-07-07 05:58 | NUR ---
Hep Lock discontinued. Site asymptomatic. Pressure applied. Sterile dressing applied. EUGENIO ESTRELLA
[2019-07-07 06:18] LABS: ALBUMIN 2.4 gm/dl (3.1-4.5); ALKALINE PHOSPHATASE 197 U/L (45-117); BUN 17 mg/dl (7-24); CHLORIDE 109 mmol/L (98-107); CREATININE 0.79 mg/dL (0.55-1.02); PHOSPHOROUS 4.1 mg/dL (2.5-4.9); POTASSIUM 3.7 mmol/L (3.5-5.1); SGOT/AST 21 IU/L (3-35); SGPT/ALT 18 U/L (12-78); SODIUM 139 mmol/L (136-145)
[2019-07-07 06:28] LABS: MEAN CORPUSCULAR HGB CONC 31.3 g/dl (33.0-37.0); RED CELL DISTRI WIDTH 13.2 % (0-14.5)
[2019-07-07 06:37] LABS: INTERNATIONAL NORM RATIO 1.3 (2.0-3.5)
[2019-07-07 06:42] LABS: HEMATOCRIT 35.8 % (37.0-47.0); HEMOGLOBIN 11.2 g/dl (12.0-16.0); MEAN CELL VOLUME 104.1 fl (81.0-99.0); MEAN CORPUSCULAR HGB 32.6 pg (27.0-31.0); MEAN PLATELET VOLUME 11.4 fl (9.6-12.3); PLATELET COUNT AUTOMATED 93 10*3/uL (130-400); RED BLOOD COUNT 3.44 10*6/uL (4.10-5.10); WHITE BLOOD COUNT 7.4 10*3/uL (4.8-10.8)
--- NOTE | 2019-07-07 06:42 | NUR ---
DR MCCARTHY NOTIFIED OF NEW CONSULT. NO NEW ORDERS AT THIS TIME.
--- NOTE | 2019-07-07 06:45 | NUR ---
DR MCCARTHY CALLED BACK. STATED TO KEEP PATIENT NPO FOR POSSIBLE BRONCH
[2019-07-07 07:37] LABS: PLATELET SUFFICIENCY LOW (NORMAL); TOTAL CELLS COUNTED 100 #CELLS
[2019-07-07 07:38] LABS: POLYCHROMASIA SLIGHT
--- NOTE | 2019-07-07 09:00 | NUR ---
Disc Pad Knockout Worker in to talk to patient. Patient states lives at home with her . There are 14 steps in the home. Physician: Stephanie Pyle [facility]: [facility] Home health services: none Patient's level of ADLs: INDEPENDENT Patient has working utilities: yes DME: none Follow-up physician's appointment after d/c: will be made by the hospitalist nurse director upon discharge Does patient want to access PORTAL?: no Discharge plan discussed with patient. She lives at home with her . She is independent in her ADLs and ambulation. Discussed home health and she denies any home needs at this time. When medically stable she will be discharged to home. Her will provide transportation on discharge. TAMIA HOGAN
[2019-07-07 13:22] LABS: BF LYMPHOCYTES 15 %; BF MACROPHAGES 49 %; BF NEUTROPHILS 36 %
--- NOTE | 2019-07-07 22:11 | NUR ---
TYLENOL GIVEN PER ORDER FOR TEMP OF 101.2. WILL MONITOR.
--- NOTE | 2019-07-07 23:20 | NUR ---
HUNTINGDON GIVWN PER ORDER FOR COMPLAINTS OF CHEST PAIN RELATED TO COUGHING. WILL MONITOR EFFECTIVENESS.
--- NOTE | 2019-07-07 23:53 | NUR ---
PT TEMP 99 AT THIS TIME. TYLENOL EFFCTIVE. WILL MONITOR
[2019-07-08] VITALS: BP 129/68
[2019-07-08 05:08] LABS: IMMUNOGLOBULIN M, QNT 293 mg/dL (26-217); RHEUMATOID ARTHRITIS FACTOR <10.0 IU/mL (0.0-13.9)
[2019-07-08 07:08] LABS: BASO % 0.2 % (0.0-1.0); EOS # 0.1 10*3/uL (0.0-0.4); EOS % 0.9 % (1.0-4.0); HEMATOCRIT 30.8 % (37.0-47.0); HEMOGLOBIN 9.9 g/dl (12.0-16.0); LYMPH # 2.3 10*3/uL (1.3-4.4); LYMPH % 28.5 % (27.0-41.0); MEAN CORPUSCULAR HGB 32.8 pg (27.0-31.0); MEAN CORPUSCULAR HGB CONC 32.1 g/dl (33.0-37.0); MONO # 0.9 10*3/uL (0.1-1.0); MONO % 10.7 % (3.0-9.0); NEUT # 4.8 10*3/uL (2.3-7.9); NEUT % 59.1 % (47.0-73.0); PLATELET COUNT AUTOMATED 78 10*3/uL (130-400); RED BLOOD COUNT 3.02 10*6/uL (4.10-5.10); WHITE BLOOD COUNT 8.2 10*3/uL (4.8-10.8)
[2019-07-08 07:31] LABS: ALKALINE PHOSPHATASE 181 U/L (45-117); BUN 8 mg/dl (7-24); CHLORIDE 111 mmol/L (98-107); CREATININE 0.43 mg/dL (0.55-1.02); SGOT/AST 30 IU/L (3-35); SGPT/ALT 12 U/L (12-78); SODIUM 141 mmol/L (136-145)
[2019-07-08 08:00] VITALS: BP 125/80
--- NOTE | 2019-07-08 08:41 | NUR ---
PT REQUESTED AND RECEIVED PO NORCO PER PRN ORDER FOR C/O CHEST PAIN DUE TO HACKY COUGH. RATES PAIN 03/11. WILL MONITOR EFFECTIVENESS. CALL LIGHT WITHIN REACH.
--- NOTE | 2019-07-08 10:00 | NUR ---
EARLIER PAIN MEDICATION EFFECTIVE AT THIS TIME. WILL CONTINUE TO MONITOR.
--- NOTE | 2019-07-08 10:32 | NUR ---
11AM VANC NOT ADMINISTERED AT THIS TIME. WAITING FOR SCHEDULED VANC TROUGH.
--- NOTE | 2019-07-08 11:48 | NUR ---
PHARMACY NOTIFIED REGARDING LOW VANC TROUGH. NEW ORDERS RECEIVED.
[2019-07-08 12:00] VITALS: BP 136/81
--- NOTE | 2019-07-08 13:40 | NUR ---
PT TRANSFERRED TO [facility] PER ORDER. REPORT GIVEN TO BOBBY.
--- NOTE | 2019-07-08 14:30 | NUR ---
MEDICATED WITH PRN PO NORCO AND ROBAXIN FOR PAIN TO LEFT CHEST AND SHOULDER RELATED TO PERSISTANT COUGHING.
--- NOTE | 2019-07-08 15:15 | NUR ---
PRN PO NORCO GIVEN EARLIER EFFECTIVE FOR PAIN, PER PATIENT.
[2019-07-08 16:00] VITALS: BP 142/72
--- NOTE | 2019-07-08 17:30 | NUR ---
PATIENT DISCHARGED TO [facility], AMBULATORY, FOR TRANSPORT HOME BY PRIVATE VEHICLE WITH HER FAMILY.
[2019-07-08 18:06] LABS: ACID FAST SPEC PROCESSING Concentration (.)
[2019-07-08 18:06] LABS: ACID FAST SPEC PROCESSING Concentration (.)
[2019-07-08 20:00] VITALS: BP 130/81
--- NOTE | 2019-07-08 23:20 | NUR ---
PT REQUESTING SOMETHING TO SLEEP AT THIS TIME. MEDICATED WITH PRN RESTORIL. WILL CHECK EFFECTIVENESS. CALL LIGHT IN REACH.
[2019-07-09] VITALS: BP 147/81
--- NOTE | 2019-07-09 00:30 | NUR ---
SLEEPING MED WAS EFFECTIVE. CALL LIGHT WITHIN REACH.
--- NOTE | 2019-07-09 02:02 | NUR ---
24 HR chart check completed.
--- NOTE | 2019-07-09 04:31 | NUR ---
Patient sleeping. Respirations relaxed and easy. Siderails up . [place] on. No signs of distress noted. Will monitor. Call light within reach. JUAN QUEZADA
[2019-07-09 06:37] LABS: BUN 3 mg/dl (7-24); CHLORIDE 105 mmol/L (98-107); CREATININE 0.43 mg/dL (0.55-1.02); SODIUM 136 mmol/L (136-145)
[2019-07-09 08:00] VITALS: BP 144/75
--- NOTE | 2019-07-09 08:39 | NUR ---
MEDICATED WITH PRN PO ROBAXIN AND NORCO FOR C/O RIGHT CHEST AND SHOULDER PAIN, ALSO LOWER ABDOMINAL MUSCLE PAIN FROM FREQUENT COUGHING.
--- NOTE | 2019-07-09 09:09 | NUR ---
PER RESPIRATORY THERAPIST, HR 96 PRIOR TO BREATHING TREATMENT W/DUONEB. AFTER TREATMENT HR 130'S.
--- NOTE | 2019-07-09 09:29 | NUR ---
MEDICATED WITH PRN IV ATIVAN FOR TREMORS, ALSO C/O AUDITORY AND VISUAL HALLUCINATIONS, RELATIVES TALKING TO HER BUT THEY ARE NOT HERE.
--- NOTE | 2019-07-09 09:35 | NUR ---
DR. MAHER NOTIFIED OF PT'S HEART RATE POST AEROSOL ( HR 96 PRE/ 130 POST A[address]) DR. MAHER STATING TO HOLD OFF ON AEROSOLS FOR NOW AND REASSESS HEART RATE.
--- NOTE | 2019-07-09 09:36 | NUR ---
PRN PO NORCO AND ROBAXIN EFFECTIVE, PER PATIENT.
--- NOTE | 2019-07-09 09:45 | NUR ---
HEART RATE 118.
--- NOTE | 2019-07-09 09:55 | NUR ---
DR. MAHER NOTIFIED OF PT HR. STATING MAY RESUME AEROSOLS.
--- NOTE | 2019-07-09 09:58 | NUR ---
PRN IV ATIVAN EFFECTIVE, PER PATIENT.
[2019-07-09 12:00] VITALS: BP 120/73
--- NOTE | 2019-07-09 15:06 | NUR ---
MEDICATED WITH PRN PO TYLENOL FOR RIB CAGE/ABDOMINAL MUSCLE PAIN AND ATIVAN PRN PO FOR TREMORS.
[2019-07-09 16:00] VITALS: BP 132/86
--- NOTE | 2019-07-09 16:31 | NUR ---
PATIENT RESTING QUIETLY; PRN PO TYLENOL AND ATIVAN EFFECTIVE.
[2019-07-09 20:00] VITALS: BP 99/60
[2019-07-09 20:08] LABS: IGG SUBCLASS 1 786 mg/dL (248-810); IGG SUBCLASS 2 398 mg/dL (130-555); IGG SUBCLASS 3 86 mg/dL (15-102); IGG SUBCLASS 4 29 mg/dL (2-96); IMMUNOGLOBULIN G, QNT 1289 mg/dL (700-1600)
--- NOTE | 2019-07-09 22:15 | NUR ---
PT REQUESTING SOMETHING TO HELP HER FALL ASLEEP. RESTORIL PO IS GIVEN AT THIS TIME. WILL CONTINUE TO MONITOR THE PATIENT. CALL LIGHT WITHIN REACH
--- NOTE | 2019-07-09 23:06 | NUR ---
RE-EVALUATED THE PATIENT AT THIS TIME. PT IS SLEEPING. WILL CONTINUE TO MONITOR
[2019-07-10] VITALS: BP 145/77
--- NOTE | 2019-07-10 02:52 | NUR ---
24 HR chart check completed.
--- NOTE | 2019-07-10 03:12 | NUR ---
PT IS REQUESTING SOMETHING TO HELP WITH HER MUSCLE SPASMS. PRN METHOCRABAMOL PO IS GIVEN AT THIS TIME. WILL CONTINUE TO MONITOR THE PATIENT.
--- NOTE | 2019-07-10 04:59 | NUR ---
Patient sleeping. Respirations relaxed and easy. Siderails up . [place] on. RADHA BLANCO
[2019-07-10 08:00] VITALS: BP 111/66
--- NOTE | 2019-07-10 09:00 | NUR ---
Truss Builder in to see patient. No new needs or request at this time. She denies any home needs. When medically stable she will be discharged to home. Treating lisha with
--- NOTE | 2019-07-10 09:48 | NUR ---
DR MCCARTHY ROUNDED AND SPOKE WITH PT.
[2019-07-10 12:00] VITALS: BP 124/74
[2019-07-10 13:09] LABS: ALDOLASE 002030 3.8 U/L (3.3-10.3); ANGIOTENSIN-CONVERTING ENZYME 34 U/L (14-82); IMMUNOGLOBULIN IgE 002170 54 IU/mL (6-495)
[2019-07-10 16:00] VITALS: BP 129/76
[2019-07-10 16:09] LABS: ATYPICAL PANCA <1:20 titer (Neg:<1:20); CYTOPLASMIC (C-ANCA) <1:20 titer (Neg:<1:20)
--- NOTE | 2019-07-10 16:30 | NUR ---
Patient resting quietly with no c/o discomfort. Respirations easy and regular. Vital signs stable. No overt distress. LONDON CHRISTIANSON
--- NOTE | 2019-07-10 19:51 | NUR ---
PT STATES THAT SHE IS IN PAIN IN HER BACK AND RATES IT A 5/10 AND IS REQUESTING PAIN MEDICATIONS. PRN NORCO PO IS GIVEN AT THIS TIME. WILL CONTINUE TO MONITOR THE PATIENT.
[2019-07-10 20:00] VITALS: BP 128/76
--- NOTE | 2019-07-10 21:00 | NUR ---
IV started left hand with #22 angiocath after 1 attempts. The IV site was prepped with Chloraprep. NS lock attached. Sterile dressing applied. Patient tolerated precedure well. Procedure performed according to [facility] policy & procedure. RADHA BLANCO
--- NOTE | 2019-07-10 21:08 | NUR ---
PT RE-EVALUATED AT THIS TIME AND PT STATES THAT HER PAIN HAS DECREASED RATING IT A 3/10. WILL CONTINUE TO MONITOR THE PATIENT.
--- NOTE | 2019-07-10 23:52 | NUR ---
PT REQUESTING SOMETHING TO HELP HER SLEEP.PRN RESTORIL PO IS GIVEN AT THIS TIME. WILL CONTINUE TO MONITOR THE PATIENT. CALL LIGHT WITHIN REACH
[2019-07-11] VITALS: BP 133/86
--- NOTE | 2019-07-11 00:40 | NUR ---
PT RE-EVALUATED THIS TIME AFTER GIVING RESTORIL AND PT IS SLEEPING. WILL CONTINUE TO MONITOR THE PATIENT.
--- NOTE | 2019-07-11 01:59 | NUR ---
24 HR chart check completed.
--- NOTE | 2019-07-11 04:30 | NUR ---
Patient sleeping. Respirations relaxed and easy. Siderails up . [place] on. RADHA BLANCO
--- NOTE | 2019-07-11 04:58 | NUR ---
PT IS REQUESTING A MUSCLE RELAXER FOR HER BACK PAIN AND RATES IT A 7/10. PRN METHOCARBAMOL PO IS GIVEN AT THIS TIME. WILL CONTINUE TO MONITOR THE PATIENT. CALL LIGHT WITHIN REACH
[2019-07-11 06:56] LABS: BASO % 0.3 % (0.0-1.0); EOS # 0.2 10*3/uL (0.0-0.4); EOS % 2.8 % (1.0-4.0); HEMATOCRIT 29.5 % (37.0-47.0); HEMOGLOBIN 9.5 g/dl (12.0-16.0); LYMPH % 27.1 % (27.0-41.0); MEAN CELL VOLUME 101.7 fl (81.0-99.0); MEAN CORPUSCULAR HGB 32.8 pg (27.0-31.0); MEAN CORPUSCULAR HGB CONC 32.2 g/dl (33.0-37.0); MEAN PLATELET VOLUME 10.7 fl (9.6-12.3); MONO # 0.7 10*3/uL (0.1-1.0); MONO % 9.9 % (3.0-9.0); NEUT # 4.3 10*3/uL (2.3-7.9); NEUT % 59.5 % (47.0-73.0); PLATELET COUNT AUTOMATED 97 10*3/uL (130-400); RED CELL DISTRI WIDTH 13.2 % (0-14.5); WHITE BLOOD COUNT 7.2 10*3/uL (4.8-10.8)
[2019-07-11 07:09] LABS: ALBUMIN 2.1 gm/dl (3.1-4.5); ALKALINE PHOSPHATASE 182 U/L (45-117); BUN 5 mg/dl (7-24); CHLORIDE 107 mmol/L (98-107); CREATININE 0.36 mg/dL (0.55-1.02); POTASSIUM 3.2 mmol/L (3.5-5.1); SGOT/AST 48 IU/L (3-35); SGPT/ALT 19 U/L (12-78); SODIUM 139 mmol/L (136-145); TOTAL PROTEIN 6.6 gm/dL (6.4-8.2)
[2019-07-11 08:00] VITALS: BP 127/75
--- NOTE | 2019-07-11 08:56 | NUR ---
NORCO 5/325 MG GIVEN FOR C/O PAIN,03/11.
[2019-07-11 12:00] VITALS: BP 112/78
[2019-07-11] MEDS ORDERED: VANCO 750750 MG/250 IV (13:14)
--- NOTE | 2019-07-11 13:28 | NUR ---
Job Press Feeder in to see patient. Discussed home health care services and she is agreeable. When provided with a list of agencies she chose [facility]. Awaiting prescription to check cost. data processing systems project planner notified.
--- NOTE | 2019-07-11 13:46 | NUR ---
Faxed Vancomycin 750 mg IV TID to [facility]. Awaiting response. Notified hospitalist nurse director off need of line for home use.
--- NOTE | 2019-07-11 15:07 | NUR ---
Per Kayli at [facility] patient is covered at 100%. Waiting on line.
--- NOTE | 2019-07-11 15:15 | NUR ---
Occupational Therapy offered to patient after definition of what OT could do for patient. Patient declined a need for OT. She reports she is independent in ADls and mobility. She says she is walking to the bathroom and in the room independently. She believes she may be d/c to home today. D/C OT referral per patient;s request. Thank you. Carlota Holt OTR/l
--- NOTE | 2019-07-11 15:54 | NUR ---
Patient has PICC line in. [facility] after her last does and start of care will be tomorrow. Spoke to Apurva at [facility] and notified of referral. Referral faxed to [facility].
[2019-07-11 16:00] VITALS: BP 140/79
[2019-07-11] MEDS ORDERED: KEPPRA500 MG PO (16:32)
--- NOTE | 2019-07-11 19:05 | NUR ---
NORCO 5/325 MG GIVEN FOR C/O RIB PAIN,01/09.
--- NOTE | 2019-07-11 20:00 | NUR ---
Discharge instructions reviewed with patient/family. Patient receptive and verbalizes understanding. Follow-up care TO BE arranged BY PATIENT. Written instructions given to patient/family. CORNELIUS DONG
--- NOTE | 2019-07-11 20:00 | NUR ---
CALLED AND INFORMED THAT PATIENT IS ASKING IF SHE CAN BE DISCHARGED ON NORCO AND ROBAXIN THAT SHE HAS BEEN GETTING DURING STAY. STATED THAT PRIOR SHIFT DID NOT WANT TO ORDER, AND TO TELL PATIENT TO ALTERNATE BETWEEN OTC TYLENOL AND MOTRIN, PATIENT STATED OK. OTHER QUESTION/CONCERNS ANSWERED AT THIS TIME. IV CATH REMOVED, MIDLINE REMAINS.
== END 2019-07-11 20:00 | disposition home health service (06) | DRG 137 ==
LOC: ED 13:25 → 4E 18:27 → EDHOLD 18:27 → 4E 19:48 → 5E 07-08 13:44
PROVIDERS: Internal Medicine; Internal Medicine Critical Care Medicine; Nurse Practitioner Family; ADMIT Family Medicine
PROC: 0B9H8ZX Drainage of Lung Lingula, Via Natural or Artificial Opening Endoscopic, Diagnostic (ICD-10-PCS; principal; 2019-07-07)
PROC: 0B9G8ZX Drainage of Left Upper Lung Lobe, Via Natural or Artificial Opening Endoscopic, Diagnostic (ICD-10-PCS; 2019-07-07)
PROC: 0BC98ZZ Extirpation of Matter from Lingula Bronchus, Via Natural or Artificial Opening Endoscopic (ICD-10-PCS; 2019-07-07)
PROC: 0BC48ZZ Extirpation of Matter from Right Upper Lobe Bronchus, Via Natural or Artificial Opening Endoscopic (ICD-10-PCS; 2019-07-07)
PROC: 0BC88ZZ Extirpation of Matter from Left Upper Lobe Bronchus, Via Natural or Artificial Opening Endoscopic (ICD-10-PCS; 2019-07-07)
PROC: 0BC58ZZ Extirpation of Matter from Right Middle Lobe Bronchus, Via Natural or Artificial Opening Endoscopic (ICD-10-PCS; 2019-07-07)
PROC: 0BC38ZZ Extirpation of Matter from Right Main Bronchus, Via Natural or Artificial Opening Endoscopic (ICD-10-PCS; 2019-07-07)
PROC: 0BC78ZZ Extirpation of Matter from Left Main Bronchus, Via Natural or Artificial Opening Endoscopic (ICD-10-PCS; 2019-07-07)
PROC: 0BC68ZZ Extirpation of Matter from Right Lower Lobe Bronchus, Via Natural or Artificial Opening Endoscopic (ICD-10-PCS; 2019-07-07)
PROC: 0BCB8ZZ Extirpation of Matter from Left Lower Lobe Bronchus, Via Natural or Artificial Opening Endoscopic (ICD-10-PCS; 2019-07-07)
PROC: 0BC18ZZ Extirpation of Matter from Trachea, Via Natural or Artificial Opening Endoscopic (ICD-10-PCS; 2019-07-07)
DX: J85.0 Gangrene and necrosis of lung (principal); J15.212 Pneumonia due to Methicillin resistant Staphylococcus aureus; E43 Unspecified severe protein-calorie malnutrition; K76.0 Fatty (change of) liver, not elsewhere classified; D72.825 Bandemia; F41.9 Anxiety disorder, unspecified; G89.29 Other chronic pain; F32.9 Major depressive disorder, single episode, unspecified; G40.909 Epilepsy, unspecified, not intractable, without status epilepticus; G62.9 Polyneuropathy, unspecified; I85.10 Secondary esophageal varices without bleeding; J40 Bronchitis, not specified as acute or chronic; E53.8 Deficiency of other specified B group vitamins; D53.9 Nutritional anemia, unspecified; D69.6 Thrombocytopenia, unspecified; E87.8 Other disorders of electrolyte and fluid balance, not elsewhere classified; E83.41 Hypermagnesemia; F10.21 Alcohol dependence, in remission; E87.6 Hypokalemia; E55.9 Vitamin D deficiency, unspecified; Z68.1 Body mass index [BMI] 19.9 or less, adult; Z81.8 Family history of other mental and behavioral disorders; Z91.419 Personal history of unspecified adult abuse; Z90.49 Acquired absence of other specified parts of digestive tract; Z98.1 Arthrodesis status; Z85.41 Personal history of malignant neoplasm of cervix uteri; Z80.3 Family history of malignant neoplasm of breast; Z82.49 Family history of ischemic heart disease and other diseases of the circulatory system; Z81.3 Family history of other psychoactive substance abuse and dependence; Z82.0 Family history of epilepsy and other diseases of the nervous system; Z79.899 Other long term (current) drug therapy; Z71.6 Tobacco abuse counseling; Z87.898 Personal history of other specified conditions

== ENCOUNTER 2019-07-15 16:22 | Emergency (ER) | payer OTHER ==
[~2019-07-15] VITALS: Ht 165.1 cm; Wt 44.5 kg
[~2019-07-15 16:22] MED LIST changes: +KEPPRA500 MG PO; +VANCO 750750 MG/250 IV
== END 2019-07-15 19:01 | disposition home or self-care (01) ==
LOC: ED 16:22
DX: S01.111A Laceration without foreign body of right eyelid and periocular area, initial encounter (principal); F17.210 Nicotine dependence, cigarettes, uncomplicated; G40.909 Epilepsy, unspecified, not intractable, without status epilepticus; G62.9 Polyneuropathy, unspecified; K21.9 Gastro-esophageal reflux disease without esophagitis; F17.200 Nicotine dependence, unspecified, uncomplicated; Z79.899 Other long term (current) drug therapy; W01.0XXA Fall on same level from slipping, tripping and stumbling without subsequent striking against object, initial encounter; Y93.89 Activity, other specified; Y92.89 Other specified places as the place of occurrence of the external cause; Y99.8 Other external cause status

== ENCOUNTER 2019-07-15 20:31 | Emergency (ER) | payer OTHER ==
[~2019-07-15] VITALS: Ht 165.1 cm; Wt 44.5 kg
== END 2019-07-15 21:16 | disposition home or self-care (01) ==
LOC: ED 20:31
DX: G43.909 Migraine, unspecified, not intractable, without status migrainosus (principal); G62.9 Polyneuropathy, unspecified; K21.9 Gastro-esophageal reflux disease without esophagitis; F17.200 Nicotine dependence, unspecified, uncomplicated; Z76.0 Encounter for issue of repeat prescription; Z79.899 Other long term (current) drug therapy

== ENCOUNTER 2020-02-12 14:11 | Emergency (ER) | payer OTHER ==
[~2020-02-12] VITALS: Ht 165.1 cm; Wt 44.5 kg
[2020-02-12] MEDS ORDERED: PREDNISONE50 MG PO (16:11)
[2020-02-12] MEDS ORDERED: VALTREX1000 MG PO (16:11)
== END 2020-02-12 16:18 | disposition home or self-care (01) ==
LOC: ED 14:11
DX: L25.9 Unspecified contact dermatitis, unspecified cause (principal); B00.1 Herpesviral vesicular dermatitis; Z79.899 Other long term (current) drug therapy

== ENCOUNTER 2020-03-08 13:21 | Emergency (ER) | payer OTHER ==
[~2020-03-08 13:21] MED LIST changes: +PREDNISONE50 MG PO; +VALTREX1000 MG PO
[2020-03-08 16:00] LABS: BASO % 0.2 % (0.0-1.0); EOS # 0.1 10*3/uL (0.0-0.4); EOS % 0.8 % (1.0-4.0); HEMATOCRIT 41.5 % (37.0-47.0); LYMPH # 2.5 10*3/uL (1.3-4.4); LYMPH % 26.3 % (27.0-41.0); MEAN CELL VOLUME 98.1 fl (81.0-99.0); MEAN CORPUSCULAR HGB 33.1 pg (27.0-31.0); MEAN CORPUSCULAR HGB CONC 33.7 g/dl (33.0-37.0); MEAN PLATELET VOLUME 9.2 fl (9.6-12.3); MONO # 0.7 10*3/uL (0.1-1.0); MONO % 7.7 % (3.0-9.0); NEUT # 6.1 10*3/uL (2.3-7.9); NEUT % 64.9 % (47.0-73.0); PLATELET COUNT AUTOMATED 162 10*3/uL (130-400); RED BLOOD COUNT 4.23 10*6/uL (4.10-5.10); RED CELL DISTRI WIDTH 14.1 % (0-14.5); WHITE BLOOD COUNT 9.4 10*3/uL (4.8-10.8)
[2020-03-08 16:16] LABS: ALBUMIN 2.7 gm/dl (3.1-4.5); ALKALINE PHOSPHATASE 161 U/L (45-117); BUN 6 mg/dl (7-24); CHLORIDE 92 mmol/L (98-107); CREATININE 0.66 mg/dL (0.55-1.02); ETHYL ALCOHOL < 3.0 mg/dl (<3); LIPASE 61 U/L (73-393); SGOT/AST 65 IU/L (3-35); SGPT/ALT 29 U/L (12-78); SODIUM 135 mmol/L (136-145); TOTAL PROTEIN 7.2 gm/dL (6.4-8.2)
[2020-03-08 16:36] LABS: BILIRUBIN 1+ (NEGATIVE); BLOOD TRACE-INTACT (NEGATIVE); CLARITY SL CLOUDY (CLEAR); COLOR ORANGE (YELLOW); GLUCOSE NEGATIVE (NEGATIVE); KETONE 1+ (NEGATIVE); LEUKO ESTERASE 3+ (NEGATIVE); NITRITE NEGATIVE (NEGATIVE); UROBILINOGEN 0.2 E.U./dl (0.2-1.0)
[2020-03-08 16:42] LABS: URINE AMPHETAMINES < 1000 (1000ng/ml); URINE BARBITURATES < 200 (200ng/ml); URINE BENZODIAZEPINES < 200 (200ng/ml); URINE CANNABINOIDS (THC) > 50 (50ng/ml); URINE COCAINE < 300 (300ng/ml); URINE METHADONE < 300 (300ng/ml); URINE OPIATES < 300 (300ng/ml)
[2020-03-08 16:43] LABS: RBC 0-2 rbc/hpf (0-2); WBC 31-40 wbc/hpf (0-5)
[2020-03-08 16:44] LABS: BACTERIA 3+
[2020-03-08 16:45] LABS: URINE PHENCYCLIDINE < 25 (25ng/ml)
[2020-03-08] MEDS ORDERED: ZOFRAN4 MG PO (17:49)
[2020-03-08] MEDS ORDERED: K-TAB20 MEQ PO (17:49)
== END 2020-03-08 18:36 | disposition home or self-care (01) ==
LOC: ED 13:21
PROVIDERS: Physician Assistant
DX: B34.9 Viral infection, unspecified (principal); R05 Cough; R09.81 Nasal congestion; R11.0 Nausea; R63.0 Anorexia; R19.7 Diarrhea, unspecified; K21.9 Gastro-esophageal reflux disease without esophagitis; F17.200 Nicotine dependence, unspecified, uncomplicated; Z79.899 Other long term (current) drug therapy

== ENCOUNTER 2020-06-05 04:41 | Emergency (ER) | payer OTHER ==
[~2020-06-05] VITALS: Wt 40.9 kg
[~2020-06-05 04:41] MED LIST changes: +K-TAB20 MEQ PO
[2020-06-05 05:34] LABS: BUN 11 mg/dl (7-24); CHLORIDE 97 mmol/L (98-107); CREATININE 0.85 mg/dL (0.55-1.02); SODIUM 137 mmol/L (136-145)
[2020-06-05 05:40] LABS: POTASSIUM 2.3 mmol/L (3.5-5.1)
[2020-06-05 06:00] LABS: HEMATOCRIT 39.2 % (37.0-47.0); MEAN CELL VOLUME 100.5 fl (81.0-99.0); MEAN CORPUSCULAR HGB 33.1 pg (27.0-31.0); MEAN CORPUSCULAR HGB CONC 32.9 g/dl (33.0-37.0); MEAN PLATELET VOLUME 10.8 fl (9.6-12.3); PLATELET COUNT AUTOMATED 174 10*3/uL (130-400); RED CELL DISTRI WIDTH 12.4 % (0-14.5); WHITE BLOOD COUNT 12.7 10*3/uL (4.8-10.8)
[2020-06-05 06:28] LABS: BILIRUBIN Negative (Negative); BLOOD Negative (Negative); CLARITY Clear (Clear); COLOR Yellow (Yellow); GLUCOSE Negative (Negative); KETONE Negative (Negative); LEUKO ESTERASE 3+ (Negative); NITRITE Negative (Negative); PH 6.5 (4.5-8.0); SPECIFIC GRAVITY <= 1.005 (1.001-1.030); UROBILINOGEN 0.2 E.U./dl (0.0-1.0)
[2020-06-05 06:43] LABS: URINE AMPHETAMINES < 1000 (1000ng/ml); URINE BARBITURATES < 200 (200ng/ml); URINE BENZODIAZEPINES < 200 (200ng/ml); URINE CANNABINOIDS (THC) > 50 (50ng/ml); URINE COCAINE < 300 (300ng/ml); URINE METHADONE < 300 (300ng/ml); URINE OPIATES < 300 (300ng/ml)
[2020-06-05 06:44] LABS: URINE PHENCYCLIDINE < 25 (25ng/ml)
[2020-06-05 06:55] LABS: ATYPICAL LYMPHS 1 % (0-0); PLATELET SUFFICIENCY NORMAL (NORMAL); TOTAL CELLS COUNTED 100 #CELLS
[2020-06-05 07:15] LABS: BACTERIA 2+; WBC TNTC wbc/hpf (0-5)
== END 2020-06-05 13:48 | disposition home or self-care (01) ==
LOC: ED 04:41
PROVIDERS: Internal Medicine
DX: F10.10 Alcohol abuse, uncomplicated (principal); F19.10 Other psychoactive substance abuse, uncomplicated; E87.8 Other disorders of electrolyte and fluid balance, not elsewhere classified; Z79.899 Other long term (current) drug therapy; Y90.9 Presence of alcohol in blood, level not specified

== ENCOUNTER 2020-08-24 10:47 | Emergency (ER) | payer OTHER ==
[~2020-08-24] VITALS: Wt 46.3 kg
[2020-08-24 11:28] LABS: BILIRUBIN Negative (Negative); BLOOD Negative (Negative); CLARITY Clear (Clear); COLOR Yellow (Yellow); GLUCOSE Negative (Negative); KETONE Negative (Negative); LEUKO ESTERASE 3+ (Negative); NITRITE Negative (Negative); SPECIFIC GRAVITY 1.015 (1.001-1.030); UROBILINOGEN 0.2 E.U./dl (0.0-1.0)
[2020-08-24 11:37] LABS: BACTERIA 3+; EPITHELIAL CELLS 21-30; WBC 51-100 wbc/hpf (0-5)
[2020-08-24 11:39] LABS: BASO % 0.5 % (0.0-1.0); EOS # 0.3 10*3/uL (0.0-0.4); EOS % 3.9 % (1.0-4.0); HEMATOCRIT 33.7 % (37.0-47.0); LYMPH # 2.5 10*3/uL (1.3-4.4); LYMPH % 38.5 % (27.0-41.0); MEAN CORPUSCULAR HGB 31.4 pg (27.0-31.0); MEAN PLATELET VOLUME 9.3 fl (9.6-12.3); MONO # 0.6 10*3/uL (0.1-1.0); MONO % 8.6 % (3.0-9.0); NEUT # 3.2 10*3/uL (2.3-7.9); NEUT % 48.3 % (47.0-73.0); PLATELET COUNT AUTOMATED 156 10*3/uL (130-400); RED BLOOD COUNT 3.44 10*6/uL (4.10-5.10); WHITE BLOOD COUNT 6.6 10*3/uL (4.8-10.8)
[2020-08-24 11:52] LABS: ACT PARTIAL THROMBO TIME 28.7 SECONDS (20.0-32.1); INTERNATIONAL NORM RATIO 1.1 (2.0-3.5)
[2020-08-24 11:54] LABS: ALBUMIN 3.3 gm/dl (3.1-4.5); ALKALINE PHOSPHATASE 91 U/L (45-117); BUN 10 mg/dl (7-24); CHLORIDE 110 mmol/L (98-107); POTASSIUM 4.1 mmol/L (3.5-5.1); SGOT/AST 21 IU/L (3-35); SGPT/ALT 18 U/L (12-78); SODIUM 141 mmol/L (136-145); TOTAL PROTEIN 6.9 gm/dL (6.4-8.2)
[2020-08-24] MEDS ORDERED: SEPTDS PO ×2 (12:07)
== END 2020-08-24 12:18 | disposition home or self-care (01) ==
LOC: ED 10:47
PROVIDERS: Emergency Medicine
DX: N39.0 Urinary tract infection, site not specified (principal); Z79.899 Other long term (current) drug therapy; Z87.891 Personal history of nicotine dependence

== ENCOUNTER 2020-09-08 18:51 | Emergency (ER) | payer OTHER ==
[~2020-09-08] VITALS: Ht 165.1 cm; Wt 46.7 kg
[2020-09-08 19:28] LABS: BASO % 0.3 % (0.0-1.0); EOS # 0.3 10*3/uL (0.0-0.4); EOS % 3.6 % (1.0-4.0); HEMATOCRIT 36.7 % (37.0-47.0); LYMPH # 2.8 10*3/uL (1.3-4.4); MEAN CELL VOLUME 99.7 fl (81.0-99.0); MEAN CORPUSCULAR HGB 32.1 pg (27.0-31.0); MEAN CORPUSCULAR HGB CONC 32.2 g/dl (33.0-37.0); MEAN PLATELET VOLUME 9.6 fl (9.6-12.3); MONO # 0.6 10*3/uL (0.1-1.0); MONO % 8.8 % (3.0-9.0); NEUT # 3.6 10*3/uL (2.3-7.9); NEUT % 49.2 % (47.0-73.0); PLATELET COUNT AUTOMATED 184 10*3/uL (130-400); RED BLOOD COUNT 3.68 10*6/uL (4.10-5.10); RED CELL DISTRI WIDTH 13.5 % (0-14.5); WHITE BLOOD COUNT 7.3 10*3/uL (4.8-10.8)
[2020-09-08 19:44] LABS: ALBUMIN 3.3 gm/dl (3.1-4.5); ALKALINE PHOSPHATASE 95 U/L (45-117); BUN 14 mg/dl (7-24); CHLORIDE 108 mmol/L (98-107); LIPASE 197 U/L (73-393); POTASSIUM 4.1 mmol/L (3.5-5.1); SGOT/AST 22 IU/L (3-35); SGPT/ALT 22 U/L (12-78); SODIUM 140 mmol/L (136-145); TOTAL PROTEIN 7.1 gm/dL (6.4-8.2)
[2020-09-08 19:46] LABS: B-hCG (QUALITATIVE) NEGATIVE (NEGATIVE)
[2020-09-08 19:47] LABS: BILIRUBIN Negative (Negative); BLOOD Negative (Negative); CLARITY Cloudy (Clear); COLOR Dark Yellow (Yellow); GLUCOSE Negative (Negative); KETONE Trace (Negative); LEUKO ESTERASE 1+ (Negative); NITRITE Positive (Negative); SPECIFIC GRAVITY >= 1.030 (1.001-1.030)
[2020-09-08 20:02] LABS: BACTERIA 1+
[2020-09-08] MEDS ORDERED: CIPRO500 MG PO ×2 (20:25)
[2020-09-08] MEDS ORDERED: PYRIDIUM200 M1 PO ×2 (20:25)
== END 2020-09-08 20:27 | disposition home or self-care (01) ==
LOC: ED 18:51
PROVIDERS: Physician Assistant
DX: N39.0 Urinary tract infection, site not specified (principal); K21.9 Gastro-esophageal reflux disease without esophagitis; F32.9 Major depressive disorder, single episode, unspecified; F17.200 Nicotine dependence, unspecified, uncomplicated; Z79.899 Other long term (current) drug therapy; Z79.2 Long term (current) use of antibiotics; Z90.49 Acquired absence of other specified parts of digestive tract; Z86.14 Personal history of Methicillin resistant Staphylococcus aureus infection

== ENCOUNTER 2020-10-18 15:46 | Emergency (ER) | payer OTHER ==
[~2020-10-18] VITALS: Ht 167.6 cm; Wt 47.2 kg
[~2020-10-18 15:46] MED LIST changes: +PYRIDIUM200 M1 PO
[2020-10-18 16:47] LABS: BILIRUBIN Negative (Negative); BLOOD Negative (Negative); CLARITY Clear (Clear); COLOR Dark Yellow (Yellow); GLUCOSE Negative (Negative); KETONE Trace (Negative); LEUKO ESTERASE 1+ (Negative); NITRITE Negative (Negative); PH 6.5 (4.5-8.0); SPECIFIC GRAVITY 1.025 (1.001-1.030)
[2020-10-18 17:05] LABS: RBC 0-2 rbc/hpf (0-2); WBC 21-30 wbc/hpf (0-5)
[2020-10-18 17:06] LABS: BACTERIA 1+; CALCIUM OXALATE CRYSTALS Trace; MUCOUS 2+
[2020-10-18] MEDS ORDERED: PYRIDIUM200 M1 PO ×2 (17:23)
[2020-10-18] MEDS ORDERED: SEPTDS PO ×2 (17:23)
== END 2020-10-18 17:25 | disposition home or self-care (01) ==
LOC: ED 15:46
PROVIDERS: Emergency Medicine
DX: R30.0 Dysuria (principal); N39.0 Urinary tract infection, site not specified; F32.9 Major depressive disorder, single episode, unspecified; F41.9 Anxiety disorder, unspecified; K21.9 Gastro-esophageal reflux disease without esophagitis; F17.200 Nicotine dependence, unspecified, uncomplicated; Z79.899 Other long term (current) drug therapy; Z98.890 Other specified postprocedural states; Z90.49 Acquired absence of other specified parts of digestive tract

== ENCOUNTER 2020-11-13 17:59 | Emergency (ER) | payer OTHER ==
[~2020-11-13] VITALS: Ht 167.6 cm; Wt 47.2 kg
[2020-11-13 19:37] LABS: BASO % 0.2 % (0.0-1.0); EOS # 0.2 10*3/uL (0.0-0.4); EOS % 2.5 % (1.0-4.0); HEMATOCRIT 37.2 % (37.0-47.0); LYMPH # 2.3 10*3/uL (1.3-4.4); LYMPH % 26.7 % (27.0-41.0); MEAN CELL VOLUME 96.1 fl (81.0-99.0); MEAN CORPUSCULAR HGB 30.5 pg (27.0-31.0); MEAN CORPUSCULAR HGB CONC 31.7 g/dl (33.0-37.0); MONO # 0.5 10*3/uL (0.1-1.0); MONO % 5.2 % (3.0-9.0); NEUT # 5.6 10*3/uL (2.3-7.9); NEUT % 65.2 % (47.0-73.0); PLATELET COUNT AUTOMATED 138 10*3/uL (130-400); RED BLOOD COUNT 3.87 10*6/uL (4.10-5.10); RED CELL DISTRI WIDTH 14.4 % (0-14.5); WHITE BLOOD COUNT 8.6 10*3/uL (4.8-10.8)
[2020-11-13 19:53] LABS: ALBUMIN 3.5 gm/dl (3.1-4.5); ALKALINE PHOSPHATASE 155 U/L (45-117); BUN 11 mg/dl (7-24); CHLORIDE 107 mmol/L (98-107); CREATININE 0.68 mg/dL (0.55-1.02); POTASSIUM 3.3 mmol/L (3.5-5.1); SGOT/AST 25 IU/L (3-35); SGPT/ALT 18 U/L (12-78); SODIUM 140 mmol/L (136-145); TOTAL PROTEIN 7.4 gm/dL (6.4-8.2); URIC ACID 4.7 mg/dL (2.6-6.0)
[2020-11-13] MEDS ORDERED: MOBIC7.5 MG PO (21:53)
== END 2020-11-13 22:00 | disposition home or self-care (01) ==
LOC: ED 17:59
PROVIDERS: Emergency Medicine
DX: S96.911A Strain of unspecified muscle and tendon at ankle and foot level, right foot, initial encounter (principal); F41.9 Anxiety disorder, unspecified; F32.9 Major depressive disorder, single episode, unspecified; Z98.890 Other specified postprocedural states; Z79.899 Other long term (current) drug therapy; X58.XXXA Exposure to other specified factors, initial encounter; Y93.89 Activity, other specified; Y92.89 Other specified places as the place of occurrence of the external cause; Y99.8 Other external cause status

== ENCOUNTER 2020-11-27 17:20 | Emergency (ER) | payer OTHER ==
[~2020-11-27] VITALS: Ht 167.6 cm; Wt 47.2 kg
[~2020-11-27 17:20] MED LIST changes: +MOBIC7.5 MG PO
== END 2020-11-27 19:19 | disposition home or self-care (01) ==
LOC: ED 17:20
DX: S96.911A Strain of unspecified muscle and tendon at ankle and foot level, right foot, initial encounter (principal); Z90.49 Acquired absence of other specified parts of digestive tract; Z98.890 Other specified postprocedural states; X58.XXXA Exposure to other specified factors, initial encounter; Y93.89 Activity, other specified; Y92.89 Other specified places as the place of occurrence of the external cause; Y99.8 Other external cause status

== ENCOUNTER 2021-02-09 19:48 | Emergency (ER) | payer OTHER ==
[2021-02-09] MEDS ORDERED: NAPROXEN250 MG PO (20:44)
== END 2021-02-09 20:52 | disposition home or self-care (01) ==
LOC: ED 19:48
DX: S60.221A Contusion of right hand, initial encounter (principal); S60.211A Contusion of right wrist, initial encounter; F17.200 Nicotine dependence, unspecified, uncomplicated; Z90.49 Acquired absence of other specified parts of digestive tract; Z98.890 Other specified postprocedural states; W19.XXXA Unspecified fall, initial encounter; Y93.89 Activity, other specified; Y92.89 Other specified places as the place of occurrence of the external cause; Y99.8 Other external cause status

== ENCOUNTER 2021-02-23 12:36 | Emergency (ER) | payer OTHER ==
[~2021-02-23] VITALS: Ht 165.1 cm; Wt 47.6 kg
[~2021-02-23 12:36] MED LIST changes: +NAPROXEN250 MG PO
== END 2021-02-23 13:10 | disposition home or self-care (01) ==
LOC: ED 12:36
DX: S63.501A Unspecified sprain of right wrist, initial encounter (principal); F41.9 Anxiety disorder, unspecified; F32.9 Major depressive disorder, single episode, unspecified; G40.909 Epilepsy, unspecified, not intractable, without status epilepticus; F17.200 Nicotine dependence, unspecified, uncomplicated; Z90.49 Acquired absence of other specified parts of digestive tract; Z85.41 Personal history of malignant neoplasm of cervix uteri; Z79.899 Other long term (current) drug therapy; Z98.890 Other specified postprocedural states; X50.0XXA Overexertion from strenuous movement or load, initial encounter; Y93.89 Activity, other specified; Y92.89 Other specified places as the place of occurrence of the external cause; Y99.8 Other external cause status

== ENCOUNTER 2021-05-09 12:39 | Emergency (ER) | payer OTHER ==
[~2021-05-09] VITALS: Ht 165.1 cm; Wt 47.2 kg
[2021-05-09 15:58] LABS: BASO % 0.6 % (0.0-1.0); EOS # 0.1 10*3/uL (0.0-0.4); EOS % 1.4 % (1.0-4.0); HEMATOCRIT 42.9 % (37.0-47.0); LYMPH # 1.7 10*3/uL (1.3-4.4); LYMPH % 33.7 % (27.0-41.0); MEAN CELL VOLUME 103.1 fl (81.0-99.0); MEAN CORPUSCULAR HGB 34.9 pg (27.0-31.0); MEAN CORPUSCULAR HGB CONC 33.8 g/dl (33.0-37.0); MONO # 0.3 10*3/uL (0.1-1.0); MONO % 6.5 % (3.0-9.0); NEUT # 2.9 10*3/uL (2.3-7.9); NEUT % 57.6 % (47.0-73.0); PLATELET COUNT AUTOMATED 80 10*3/uL (130-400); RED BLOOD COUNT 4.16 10*6/uL (4.10-5.10); RED CELL DISTRI WIDTH 14.7 % (0-14.5); WHITE BLOOD COUNT 5.1 10*3/uL (4.8-10.8)
[2021-05-09 16:17] LABS: ALBUMIN 3.1 gm/dl (3.1-4.5); ALKALINE PHOSPHATASE 166 U/L (45-117); BUN 10 mg/dl (7-24); CHLORIDE 102 mmol/L (98-107); CREATININE 0.58 mg/dL (0.55-1.02); LIPASE 68 U/L (73-393); POTASSIUM 3.1 mmol/L (3.5-5.1); SGOT/AST 76 IU/L (3-35); SGPT/ALT 46 U/L (12-78); SODIUM 139 mmol/L (136-145); TOTAL PROTEIN 7.6 gm/dL (6.4-8.2)
[2021-05-09 16:18] LABS: TROPONIN I < 0.015 ng/ml (<0.045)
== END 2021-05-09 16:53 | disposition home or self-care (01) ==
LOC: ED 12:39
PROVIDERS: Emergency Medicine
DX: U07.1 COVID-19 (principal)

== ENCOUNTER 2021-05-25 18:07 | Emergency (ER) | payer OTHER ==
[2021-05-25 22:17] LABS: BASO % 0.4 % (0.0-1.0); EOS % 0.4 % (1.0-4.0); HEMATOCRIT 45.4 % (37.0-47.0); LYMPH # 1.5 10*3/uL (1.3-4.4); LYMPH % 18.8 % (27.0-41.0); MEAN CELL VOLUME 101.6 fl (81.0-99.0); MEAN CORPUSCULAR HGB 34.9 pg (27.0-31.0); MEAN CORPUSCULAR HGB CONC 34.4 g/dl (33.0-37.0); MEAN PLATELET VOLUME 10.6 fl (9.6-12.3); MONO # 0.7 10*3/uL (0.1-1.0); NEUT # 5.7 10*3/uL (2.3-7.9); NEUT % 70.8 % (47.0-73.0); PLATELET COUNT AUTOMATED 76 10*3/uL (130-400); RED BLOOD COUNT 4.47 10*6/uL (4.10-5.10); RED CELL DISTRI WIDTH 13.7 % (0-14.5)
[2021-05-25 22:42] LABS: BUN 22 mg/dl (7-24); CHLORIDE 90 mmol/L (98-107); LIPASE 75 U/L (73-393); POTASSIUM 3.1 mmol/L (3.5-5.1); SGOT/AST 112 IU/L (3-35); SGPT/ALT 49 U/L (12-78); SODIUM 132 mmol/L (136-145); TOTAL PROTEIN 8.4 gm/dL (6.4-8.2)
[2021-05-25 22:43] LABS: ALKALINE PHOSPHATASE 137 U/L (45-117); ETHYL ALCOHOL < 3.0 mg/dl (<3)
[2021-05-25 23:17] LABS: BILIRUBIN 3+ (Negative); BLOOD Negative (Negative); CLARITY Clear (Clear); COLOR Orange (Yellow); GLUCOSE Negative (Negative); KETONE 3+ (Negative); LEUKO ESTERASE 2+ (Negative); NITRITE Positive (Negative); SPECIFIC GRAVITY 1.025 (1.001-1.030)
[2021-05-25 23:42] LABS: BACTERIA 1+; WBC 31-40 wbc/hpf (0-5)
[2021-05-26] MEDS ORDERED: SEPTDS PO ×2 (01:05)
[2021-05-26] MEDS ORDERED: PROMETHAZINE25 M1 PO ×2 (01:05)
== END 2021-05-26 03:30 | disposition home or self-care (01) ==
LOC: ED 18:07
PROVIDERS: Emergency Medicine
DX: R11.2 Nausea with vomiting, unspecified (principal); J02.9 Acute pharyngitis, unspecified; N39.0 Urinary tract infection, site not specified; R19.7 Diarrhea, unspecified; R74.01 Elevation of levels of liver transaminase levels; F17.200 Nicotine dependence, unspecified, uncomplicated; Z90.49 Acquired absence of other specified parts of digestive tract; Z98.890 Other specified postprocedural states; Z85.41 Personal history of malignant neoplasm of cervix uteri; Z90.89 Acquired absence of other organs

== ENCOUNTER 2021-06-06 12:03 | Inpatient (IN) | payer OTHER ==
[~2021-06-06] VITALS: Ht 165.1 cm; Wt 47.2 kg
[~2021-06-06 12:03] MED LIST changes: +PROMETHAZINE25 M1 PO
[2021-06-06 12:36] VITALS: BP 108/68
[2021-06-06 13:07] LABS: BASO % 0.2 % (0.0-1.0); EOS % 0.6 % (1.0-4.0); HEMATOCRIT 40.9 % (37.0-47.0); LYMPH # 1.3 10*3/uL (1.3-4.4); LYMPH % 21.6 % (27.0-41.0); MEAN CELL VOLUME 100.5 fl (81.0-99.0); MEAN CORPUSCULAR HGB 35.1 pg (27.0-31.0); MEAN PLATELET VOLUME 9.6 fl (9.6-12.3); MONO # 0.4 10*3/uL (0.1-1.0); MONO % 6.3 % (3.0-9.0); NEUT # 4.4 10*3/uL (2.3-7.9); PLATELET COUNT AUTOMATED 75 10*3/uL (130-400); RED BLOOD COUNT 4.07 10*6/uL (4.10-5.10); RED CELL DISTRI WIDTH 13.2 % (0-14.5); WHITE BLOOD COUNT 6.2 10*3/uL (4.8-10.8)
[2021-06-06 13:25] LABS: ALBUMIN 3.6 gm/dl (3.1-4.5); ALKALINE PHOSPHATASE 126 U/L (45-117); BUN 16 mg/dl (7-24); CHLORIDE 90 mmol/L (98-107); CPK 50 U/L (26-192); CREATININE 0.64 mg/dL (0.55-1.02); SGOT/AST 84 IU/L (3-35); SGPT/ALT 47 U/L (12-78); SODIUM 132 mmol/L (136-145); TOTAL PROTEIN 8.1 gm/dL (6.4-8.2)
[2021-06-06 13:29] LABS: ETHYL ALCOHOL < 3.0 mg/dl (<3); POTASSIUM 2.2 mmol/L (3.5-5.1); TROPONIN I < 0.015 ng/ml (<0.045)
[2021-06-06 17:34] VITALS: BP 122/87
[2021-06-06 19:09] LABS: BILIRUBIN Negative (Negative); BLOOD Negative (Negative); CLARITY Clear (Clear); COLOR Dark Yellow (Yellow); GLUCOSE Negative (Negative); KETONE Trace (Negative); LEUKO ESTERASE 1+ (Negative); NITRITE Negative (Negative); SPECIFIC GRAVITY 1.015 (1.001-1.030)
[2021-06-06 19:15] LABS: PH 8.5 (4.5-8.0); URINE AMPHETAMINES < 1000 (1000ng/ml); URINE BARBITURATES < 200 (200ng/ml); URINE BENZODIAZEPINES < 200 (200ng/ml); URINE CANNABINOIDS (THC) > 50 (50ng/ml); URINE COCAINE < 300 (300ng/ml); URINE METHADONE < 300 (300ng/ml); URINE OPIATES < 300 (300ng/ml)
[2021-06-06 19:16] LABS: URINE PHENCYCLIDINE < 25 (25ng/ml)
[2021-06-06 19:22] LABS: WBC 51-100 wbc/hpf (0-5)
[2021-06-06 19:23] LABS: BACTERIA 4+
[2021-06-06 19:24] LABS: BUN 11 mg/dl (7-24); CHLORIDE 101 mmol/L (98-107); CREATININE 0.48 mg/dL (0.55-1.02); SODIUM 134 mmol/L (136-145)
[2021-06-06 19:27] LABS: POTASSIUM 3.5 mmol/L (3.5-5.1)
[2021-06-06 22:56] VITALS: BP 123/90
[2021-06-07] VITALS (7 sets, daily range): BP systolic 97–135; BP diastolic 54–92
[2021-06-07 00:41] LABS: BUN 8 mg/dl (7-24); CHLORIDE 104 mmol/L (98-107); CREATININE 0.39 mg/dL (0.55-1.02); POTASSIUM 3.3 mmol/L (3.5-5.1); SODIUM 136 mmol/L (136-145)
[2021-06-07 04:19] LABS: BASO % 0.3 % (0.0-1.0); EOS # 0.1 10*3/uL (0.0-0.4); EOS % 2.2 % (1.0-4.0); HEMATOCRIT 38.7 % (37.0-47.0); LYMPH # 2.1 10*3/uL (1.3-4.4); LYMPH % 35.4 % (27.0-41.0); MEAN CORPUSCULAR HGB 35.6 pg (27.0-31.0); MEAN CORPUSCULAR HGB CONC 33.6 g/dl (33.0-37.0); MEAN PLATELET VOLUME 10.3 fl (9.6-12.3); MONO # 0.3 10*3/uL (0.1-1.0); MONO % 5.3 % (3.0-9.0); NEUT # 3.4 10*3/uL (2.3-7.9); NEUT % 56.5 % (47.0-73.0); PLATELET COUNT AUTOMATED 60 10*3/uL (130-400); RED BLOOD COUNT 3.65 10*6/uL (4.10-5.10); RED CELL DISTRI WIDTH 13.2 % (0-14.5)
[2021-06-07 04:35] LABS: ALBUMIN 2.8 gm/dl (3.1-4.5); BUN 6 mg/dl (7-24); CHLORIDE 105 mmol/L (98-107); CHOLESTEROL 183 mg/dL (<200); CREATININE 0.48 mg/dL (0.55-1.02); POTASSIUM 3.4 mmol/L (3.5-5.1); SGOT/AST 72 IU/L (3-35); SGPT/ALT 39 U/L (12-78); SODIUM 135 mmol/L (136-145); TOTAL PROTEIN 6.5 gm/dL (6.4-8.2); TRIGLYCERIDES 64 mg/dl (<150)
[2021-06-07 04:36] LABS: ALKALINE PHOSPHATASE 98 U/L (45-117); LDL CHOLESTEROL 70 mg/dL (9-159)
[2021-06-07 04:42] LABS: FREE T4 0.78 ng/dl (0.76-1.46)
[2021-06-07 08:06] LABS: VITAMIN D, 25-HYDROXY 44.6 ng/mL (30-100)
[2021-06-08] VITALS: BP 122/83
[2021-06-08 07:24] LABS: ALBUMIN 3.1 gm/dl (3.1-4.5); ALKALINE PHOSPHATASE 99 U/L (45-117); BUN 5 mg/dl (7-24); CHLORIDE 104 mmol/L (98-107); POTASSIUM 3.8 mmol/L (3.5-5.1); SGOT/AST 55 IU/L (3-35); SGPT/ALT 41 U/L (12-78); SODIUM 137 mmol/L (136-145); TOTAL PROTEIN 7.1 gm/dL (6.4-8.2)
[2021-06-08 07:58] VITALS: BP 111/76
[2021-06-08] MEDS ORDERED: NITROFURANTOIN100 M9 PO (11:03)
[2021-06-08] MEDS ORDERED: ZOLOFT25 MG PO (11:03)
== END 2021-06-08 10:10 | disposition home or self-care (01) | DRG 425 ==
LOC: ED 12:03 → EDHOLD 13:42 → 4E 19:54 → EDHOLD 21:52 → 5E 06-07 07:00
PROVIDERS: Emergency Medicine; Internal Medicine; Student in an Organized Health Care Education/Training Program; ADMIT Emergency Medicine; ATTEND Emergency Medicine
DX: E87.6 Hypokalemia (principal); E83.42 Hypomagnesemia; D69.6 Thrombocytopenia, unspecified; E87.1 Hypo-osmolality and hyponatremia; E87.8 Other disorders of electrolyte and fluid balance, not elsewhere classified; R74.01 Elevation of levels of liver transaminase levels; R73.9 Hyperglycemia, unspecified; F17.210 Nicotine dependence, cigarettes, uncomplicated; F32.A Depression, unspecified; N39.0 Urinary tract infection, site not specified; G62.9 Polyneuropathy, unspecified; I85.00 Esophageal varices without bleeding; F10.239 Alcohol dependence with withdrawal, unspecified; Z71.6 Tobacco abuse counseling; Z82.49 Family history of ischemic heart disease and other diseases of the circulatory system; Z79.899 Other long term (current) drug therapy; Z90.49 Acquired absence of other specified parts of digestive tract; R53.1 Weakness

== ENCOUNTER 2021-09-25 15:06 | Emergency (ER) | payer OTHER ==
[~2021-09-25] VITALS: Ht 165.1 cm; Wt 46.7 kg
[~2021-09-25 15:06] MED LIST changes: +NITROFURANTOIN100 M9 PO
== END 2021-09-25 18:00 | disposition home or self-care (01) ==
LOC: ED 15:06
DX: S93.402A Sprain of unspecified ligament of left ankle, initial encounter (principal); S70.01XA Contusion of right hip, initial encounter; Z90.49 Acquired absence of other specified parts of digestive tract; Z98.890 Other specified postprocedural states; Z87.891 Personal history of nicotine dependence; W10.8XXA Fall (on) (from) other stairs and steps, initial encounter; Y93.89 Activity, other specified; Y92.89 Other specified places as the place of occurrence of the external cause; Y99.8 Other external cause status

== ENCOUNTER 2021-10-09 14:49 | Emergency (ER) | payer OTHER ==
[~2021-10-09] VITALS: Ht 165.1 cm; Wt 47.2 kg
[2021-10-09] MEDS ORDERED: ZYRTEC10 M3 PO (15:55)
[2021-10-09] MEDS ORDERED: ZOFRAN4 MG PO (15:55)
== END 2021-10-09 16:05 | disposition home or self-care (01) ==
LOC: ED 14:49
DX: B34.9 Viral infection, unspecified (principal); Z20.822 Contact with and (suspected) exposure to COVID-19; Z98.890 Other specified postprocedural states; Z90.49 Acquired absence of other specified parts of digestive tract; Z87.891 Personal history of nicotine dependence

== ENCOUNTER 2021-11-21 16:20 | Inpatient (IN) | payer OTHER ==
[~2021-11-21] VITALS: Ht 165.1 cm; Wt 71.4 kg
[~2021-11-21 16:20] MED LIST changes: +ZYRTEC10 M3 PO
[2021-11-21 17:07] VITALS: BP 110/88
[2021-11-21 17:40] LABS: HEMATOCRIT 39.6 % (37.0-47.0); MEAN CELL VOLUME 111.2 fl (81.0-99.0); MEAN CORPUSCULAR HGB CONC 35.1 g/dl (33.0-37.0); MEAN PLATELET VOLUME 10.1 fl (9.6-12.3); PLATELET COUNT AUTOMATED 95 10*3/uL (130-400); RED BLOOD COUNT 3.56 10*6/uL (4.10-5.10); RED CELL DISTRI WIDTH 13.2 % (0-14.5); WHITE BLOOD COUNT 8.1 10*3/uL (4.8-10.8)
[2021-11-21 17:42] LABS: MANUAL DIFF REFLEX YES
[2021-11-21 18:10] LABS: ATYPICAL LYMPHS 3 % (0-0); BASOPHILS 1 % (0-1); PLATELET SUFFICIENCY LOW (NORMAL); TOTAL CELLS COUNTED 100 #CELLS
[2021-11-21 18:13] LABS: BILIRUBIN 2+ (Negative); BLOOD Negative (Negative); CLARITY Cloudy (Clear); COLOR Dark Yellow (Yellow); GLUCOSE Negative (Negative); KETONE 1+ (Negative); LEUKO ESTERASE 2+ (Negative); NITRITE Positive (Negative); UROBILINOGEN >= 8.0 E.U./dl (0.0-1.0)
[2021-11-21 18:17] LABS: PH 8.5 (4.5-8.0)
[2021-11-21 18:19] LABS: ALKALINE PHOSPHATASE 128 U/L (45-117); BUN 9 mg/dl (7-24); CHLORIDE 98 mmol/L (98-107); CREATININE 0.56 mg/dL (0.55-1.02); LIPASE 73 U/L (73-393); SGOT/AST 106 IU/L (3-35); SGPT/ALT 46 U/L (12-78); SODIUM 136 mmol/L (136-145); TOTAL PROTEIN 7.6 gm/dL (6.4-8.2)
[2021-11-21 18:24] LABS: MUCOUS 3+; WBC 16-20 wbc/hpf (0-5)
[2021-11-21 18:34] LABS: POTASSIUM 2.3 mmol/L (3.5-5.1)
[2021-11-21 20:00] VITALS: BP 115/70
[2021-11-21 22:51] VITALS: BP 115/70
[2021-11-22 06:30] LABS: HEMATOCRIT 35.3 % (37.0-47.0); MEAN CELL VOLUME 112.8 fl (81.0-99.0); MEAN CORPUSCULAR HGB CONC 34.6 g/dl (33.0-37.0); MEAN PLATELET VOLUME 10.6 fl (9.6-12.3); PLATELET COUNT AUTOMATED 82 10*3/uL (130-400); RED BLOOD COUNT 3.13 10*6/uL (4.10-5.10); WHITE BLOOD COUNT 6.9 10*3/uL (4.8-10.8)
[2021-11-22 06:32] LABS: MANUAL DIFF REFLEX YES
[2021-11-22 06:41] LABS: BUN 10 mg/dl (7-24); CHLORIDE 103 mmol/L (98-107); CHOLESTEROL 126 mg/dL (<200); CREATININE 0.61 mg/dL (0.55-1.02); POTASSIUM 2.8 mmol/L (3.5-5.1); SGOT/AST 81 IU/L (3-35); SGPT/ALT 35 U/L (12-78); SODIUM 137 mmol/L (136-145); TOTAL PROTEIN 6.4 gm/dL (6.4-8.2); TRIGLYCERIDES 63 mg/dl (<150)
[2021-11-22 06:45] LABS: ALKALINE PHOSPHATASE 106 U/L (45-117); FREE T4 1.04 ng/dl (0.76-1.46); LDL CHOLESTEROL 68 mg/dL (9-159)
[2021-11-22 06:50] LABS: ACT PARTIAL THROMBO TIME 29.2 SECONDS (20.0-32.1); INTERNATIONAL NORM RATIO 1.2 (2.0-3.5)
[2021-11-22 07:16] LABS: TOTAL CELLS COUNTED 100 #CELLS
[2021-11-22 07:17] LABS: PLATELET SUFFICIENCY LOW (NORMAL)
[2021-11-22 08:00] VITALS: BP 103/68
[2021-11-22 11:51] LABS: VITAMIN D, 25-HYDROXY 53.7 ng/mL (30-100)
[2021-11-22 12:00] VITALS: BP 97/70
[2021-11-22 16:00] VITALS: BP 93/63
[2021-11-22 20:00] VITALS: BP 96/65
[2021-11-23 00:51] VITALS: BP 99/61
[2021-11-23 06:24] LABS: HEMATOCRIT 33.5 % (37.0-47.0); MEAN CORPUSCULAR HGB 39.4 pg (27.0-31.0); MEAN CORPUSCULAR HGB CONC 33.1 g/dl (33.0-37.0); MEAN PLATELET VOLUME 10.7 fl (9.6-12.3); PLATELET COUNT AUTOMATED 80 10*3/uL (130-400); RED BLOOD COUNT 2.82 10*6/uL (4.10-5.10); RED CELL DISTRI WIDTH 13.2 % (0-14.5); WHITE BLOOD COUNT 5.5 10*3/uL (4.8-10.8)
[2021-11-23 06:26] LABS: MANUAL DIFF REFLEX YES; MEAN CELL VOLUME 118.8 fl (81.0-99.0)
[2021-11-23 06:52] LABS: PLATELET SUFFICIENCY LOW (NORMAL); TOTAL CELLS COUNTED 100 #CELLS
[2021-11-23 08:00] VITALS: BP 111/77
[2021-11-23 08:04] LABS: ALKALINE PHOSPHATASE 89 U/L (45-117); BUN 5 mg/dl (7-24); CHLORIDE 115 mmol/L (98-107); CREATININE 0.48 mg/dL (0.55-1.02); POTASSIUM 3.7 mmol/L (3.5-5.1); SGOT/AST 48 IU/L (3-35); SGPT/ALT 28 U/L (12-78); SODIUM 144 mmol/L (136-145); TOTAL PROTEIN 5.7 gm/dL (6.4-8.2)
[2021-11-23 12:00] VITALS: BP 105/73
[2021-11-23 16:00] VITALS: BP 103/73
[2021-11-23 20:00] VITALS: BP 108/66
[2021-11-24] VITALS: BP 120/84
[2021-11-24 06:15] LABS: ALKALINE PHOSPHATASE 84 U/L (45-117); BUN 6 mg/dl (7-24); CHLORIDE 109 mmol/L (98-107); CREATININE 0.41 mg/dL (0.55-1.02); HEMATOCRIT 33.7 % (37.0-47.0); MEAN CORPUSCULAR HGB 39.6 pg (27.0-31.0); MEAN CORPUSCULAR HGB CONC 33.8 g/dl (33.0-37.0); PLATELET COUNT AUTOMATED 86 10*3/uL (130-400); POTASSIUM 4.1 mmol/L (3.5-5.1); RED BLOOD COUNT 2.88 10*6/uL (4.10-5.10); RED CELL DISTRI WIDTH 12.9 % (0-14.5); SGOT/AST 76 IU/L (3-35); SGPT/ALT 33 U/L (12-78); SODIUM 140 mmol/L (136-145); WHITE BLOOD COUNT 5.5 10*3/uL (4.8-10.8)
[2021-11-24 06:21] LABS: MANUAL DIFF REFLEX YES
[2021-11-24 07:16] LABS: TOTAL CELLS COUNTED 100 #CELLS
[2021-11-24 07:17] LABS: ROULEAUX SLIGHT
[2021-11-24 07:19] LABS: PLATELET SUFFICIENCY LOW (NORMAL)
[2021-11-24 08:00] VITALS: BP 118/76
[2021-11-24] MEDS ORDERED: PAXIL20 M1 PO (10:55)
[2021-11-24] MEDS ORDERED: VIBRAMYCIN HYC100 MG PO (10:55)
[2021-11-24] MEDS ORDERED: VISTARIL25 M2 PO (10:55)
[2021-11-24] MEDS ORDERED: VITAMIN B-1100 M1 PO (10:56)
[2021-11-24] MEDS ORDERED: ZOFRAN4 MG PO (10:56)
[2021-11-24] MEDS ORDERED: NATURE'S BLEND F1 MG PO (10:56)
[2021-11-24] MEDS ORDERED: LOPERAMIDE HCL2 MG PO (10:56)
[2021-11-24] MEDS ORDERED: PREDNISONE10 MG PO (10:57)
== END 2021-11-24 13:03 | disposition home or self-care (01) | DRG 463 ==
LOC: ED 16:20 → 5E 22:07 → EDHOLD 22:07 → 5E 22:26
PROVIDERS: Internal Medicine; Nurse Practitioner Family; ADMIT Emergency Medicine; ATTEND Emergency Medicine
DX: N30.00 Acute cystitis without hematuria (principal); E44.0 Moderate protein-calorie malnutrition; K44.9 Diaphragmatic hernia without obstruction or gangrene; E87.6 Hypokalemia; R16.2 Hepatomegaly with splenomegaly, not elsewhere classified; F41.9 Anxiety disorder, unspecified; F32.9 Major depressive disorder, single episode, unspecified; G62.9 Polyneuropathy, unspecified; G40.909 Epilepsy, unspecified, not intractable, without status epilepticus; D69.6 Thrombocytopenia, unspecified; R74.01 Elevation of levels of liver transaminase levels; F17.210 Nicotine dependence, cigarettes, uncomplicated; E80.6 Other disorders of bilirubin metabolism; R80.9 Proteinuria, unspecified; F19.90 Other psychoactive substance use, unspecified, uncomplicated; F10.10 Alcohol abuse, uncomplicated; J44.1 Chronic obstructive pulmonary disease with (acute) exacerbation; Z90.49 Acquired absence of other specified parts of digestive tract; Z80.3 Family history of malignant neoplasm of breast; Z81.8 Family history of other mental and behavioral disorders; Z82.49 Family history of ischemic heart disease and other diseases of the circulatory system; Z86.16 Personal history of COVID-19; Z71.6 Tobacco abuse counseling; Z78.9 Other specified health status; Z98.890 Other specified postprocedural states; Z68.1 Body mass index [BMI] 19.9 or less, adult

== ENCOUNTER 2022-01-03 14:26 | Emergency (ER) | payer OTHER ==
[~2022-01-03] VITALS: Wt 46.7 kg
[~2022-01-03 14:26] MED LIST changes: +LOPERAMIDE HCL2 MG PO; +PAXIL20 M1 PO; +VIBRAMYCIN HYC100 MG PO; +VISTARIL25 M2 PO; +VITAMIN B-1100 M1 PO
[2022-01-03 14:53] LABS: BILIRUBIN 1+ (Negative); BLOOD Negative (Negative); CLARITY Cloudy (Clear); COLOR Dark Yellow (Yellow); GLUCOSE Negative (Negative); KETONE Trace (Negative); LEUKO ESTERASE 2+ (Negative); NITRITE Negative (Negative); PH 7.5 (4.5-8.0); SPECIFIC GRAVITY 1.015 (1.001-1.030)
[2022-01-03 15:00] LABS: BACTERIA 1+; EPITHELIAL CELLS TNTC; MUCOUS 1+
[2022-01-03 15:42] LABS: BASO # 0.1 10*3/uL (0.0-0.1); BASO % 0.9 % (0.0-1.0); EOS # 0.2 10*3/uL (0.0-0.4); EOS % 3.8 % (1.0-4.0); HEMATOCRIT 35.4 % (37.0-47.0); LYMPH # 2.1 10*3/uL (1.3-4.4); LYMPH % 36.1 % (27.0-41.0); MEAN CELL VOLUME 107.9 fl (81.0-99.0); MEAN CORPUSCULAR HGB 36.9 pg (27.0-31.0); MEAN CORPUSCULAR HGB CONC 34.2 g/dl (33.0-37.0); MEAN PLATELET VOLUME 10.1 fl (9.6-12.3); MONO # 0.4 10*3/uL (0.1-1.0); MONO % 7.3 % (3.0-9.0); NEUT % 51.7 % (47.0-73.0); PLATELET COUNT AUTOMATED 57 10*3/uL (130-400); RED BLOOD COUNT 3.28 10*6/uL (4.10-5.10); RED CELL DISTRI WIDTH 12.2 % (0-14.5); WHITE BLOOD COUNT 5.7 10*3/uL (4.8-10.8)
[2022-01-03 15:58] LABS: ALKALINE PHOSPHATASE 128 U/L (45-117); BUN 5 mg/dl (7-24); CHLORIDE 108 mmol/L (98-107); CREATININE 0.57 mg/dL (0.55-1.02); LIPASE 135 U/L (73-393); POTASSIUM 2.5 mmol/L (3.5-5.1); SGOT/AST 106 IU/L (3-35); SGPT/ALT 31 U/L (12-78); SODIUM 143 mmol/L (136-145); TOTAL PROTEIN 6.5 gm/dL (6.4-8.2)
[2022-01-03 16:41] LABS: URINE AMPHETAMINES < 1000 (1000ng/ml); URINE BARBITURATES < 200 (200ng/ml); URINE BENZODIAZEPINES < 200 (200ng/ml); URINE CANNABINOIDS (THC) > 50 (50ng/ml); URINE COCAINE < 300 (300ng/ml); URINE METHADONE < 300 (300ng/ml); URINE OPIATES < 300 (300ng/ml)
[2022-01-03 16:49] LABS: URINE PHENCYCLIDINE < 25 (25ng/ml)
[2022-01-03 18:39] LABS: POTASSIUM 2.9 mmol/L (3.5-5.1)
[2022-01-04 06:15] LABS: BUN 3 mg/dl (7-24); CHLORIDE 106 mmol/L (98-107); CREATININE 0.62 mg/dL (0.55-1.02); SODIUM 143 mmol/L (136-145)
[2022-01-04 06:16] LABS: ETHYL ALCOHOL < 3.0 mg/dl (<3); POTASSIUM 4.2 mmol/L (3.5-5.1)
[2022-01-04] MEDS ORDERED: CEPHALEXIN500 M1 PO (06:20)
== END 2022-01-04 06:43 | disposition home or self-care (01) ==
LOC: ED 14:26
PROVIDERS: Emergency Medicine
DX: E87.6 Hypokalemia (principal); E83.42 Hypomagnesemia; F10.929 Alcohol use, unspecified with intoxication, unspecified; Y90.9 Presence of alcohol in blood, level not specified; J44.9 Chronic obstructive pulmonary disease, unspecified; Z90.49 Acquired absence of other specified parts of digestive tract; Z98.890 Other specified postprocedural states

== ENCOUNTER 2022-02-04 15:04 | Inpatient (IN) | payer OTHER ==
[~2022-02-04] VITALS: Ht 165.1 cm; Wt 49.4 kg
[~2022-02-04 15:04] MED LIST changes: +CEPHALEXIN500 M1 PO; +OMEPRAZOLE40 MG PO
[2022-02-04 15:07] VITALS: BP 119/74
[2022-02-04 15:39] LABS: BASO % 0.2 % (0.0-1.0); EOS % 0.4 % (1.0-4.0); HEMATOCRIT 35.6 % (37.0-47.0); LYMPH # 0.9 10*3/uL (1.3-4.4); LYMPH % 15.6 % (27.0-41.0); MEAN CORPUSCULAR HGB 36.3 pg (27.0-31.0); MEAN CORPUSCULAR HGB CONC 34.6 g/dl (33.0-37.0); MEAN PLATELET VOLUME 10.3 fl (9.6-12.3); MONO # 0.4 10*3/uL (0.1-1.0); MONO % 6.9 % (3.0-9.0); NEUT # 4.2 10*3/uL (2.3-7.9); NEUT % 76.5 % (47.0-73.0); PLATELET COUNT AUTOMATED 53 10*3/uL (130-400); RED BLOOD COUNT 3.39 10*6/uL (4.10-5.10); RED CELL DISTRI WIDTH 13.3 % (0-14.5); WHITE BLOOD COUNT 5.5 10*3/uL (4.8-10.8)
[2022-02-04 15:52] LABS: ACT PARTIAL THROMBO TIME 26.2 SECONDS (20.0-32.1); INTERNATIONAL NORM RATIO 1.2 (2.0-3.5)
[2022-02-04 15:58] LABS: ALKALINE PHOSPHATASE 107 U/L (45-117); BUN 11 mg/dl (7-24); CHLORIDE 104 mmol/L (98-107); CREATININE 0.56 mg/dL (0.55-1.02); LIPASE 130 U/L (73-393); SGOT/AST 78 IU/L (3-35); SGPT/ALT 27 U/L (12-78); SODIUM 139 mmol/L (136-145); TOTAL PROTEIN 7.5 gm/dL (6.4-8.2)
[2022-02-04 16:00] LABS: POTASSIUM 2.3 mmol/L (3.5-5.1)
[2022-02-04 16:45] VITALS: BP 128/70
[2022-02-04 18:47] VITALS: BP 132/77
[2022-02-04 19:58] VITALS: BP 116/70
[2022-02-04 20:13] LABS: BUN 10 mg/dl (7-24); CHLORIDE 108 mmol/L (98-107); CREATININE 0.35 mg/dL (0.55-1.02); POTASSIUM 2.5 mmol/L (3.5-5.1); SODIUM 141 mmol/L (136-145)
[2022-02-04 23:24] VITALS: BP 116/80
[2022-02-05 01:50] VITALS: BP 123/83
[2022-02-05 03:41] LABS: HEMATOCRIT 34.3 % (37.0-47.0); MEAN CELL VOLUME 107.5 fl (81.0-99.0); MEAN CORPUSCULAR HGB 35.4 pg (27.0-31.0); MEAN CORPUSCULAR HGB CONC 32.9 g/dl (33.0-37.0); MEAN PLATELET VOLUME 10.9 fl (9.6-12.3); PLATELET COUNT AUTOMATED 46 10*3/uL (130-400); RED BLOOD COUNT 3.19 10*6/uL (4.10-5.10); RED CELL DISTRI WIDTH 13.3 % (0-14.5); WHITE BLOOD COUNT 5.1 10*3/uL (4.8-10.8)
[2022-02-05 03:45] LABS: MANUAL DIFF REFLEX YES
[2022-02-05 03:59] LABS: ALKALINE PHOSPHATASE 87 U/L (45-117); BUN 6 mg/dl (7-24); CHLORIDE 111 mmol/L (98-107); CREATININE 0.43 mg/dL (0.55-1.02); SGOT/AST 58 IU/L (3-35); SGPT/ALT 21 U/L (12-78); SODIUM 141 mmol/L (136-145)
[2022-02-05 04:00] VITALS: BP 114/72
[2022-02-05 04:10] LABS: BASOPHILS 1 % (0-1); PLATELET SUFFICIENCY LOW (NORMAL); TOTAL CELLS COUNTED 100 #CELLS
[2022-02-05 06:21] VITALS: BP 113/75
[2022-02-05 12:00] VITALS: BP 114/72
[2022-02-05 16:00] VITALS: BP 122/78
[2022-02-05 16:23] LABS: BUN 4 mg/dl (7-24); CHLORIDE 112 mmol/L (98-107); CREATININE 0.43 mg/dL (0.55-1.02); SODIUM 140 mmol/L (136-145)
[2022-02-05 16:50] LABS: POTASSIUM 4.4 mmol/L (3.5-5.1)
[2022-02-05 18:18] LABS: BILIRUBIN Negative (Negative); BLOOD Negative (Negative); CLARITY Clear (Clear); COLOR Yellow (Yellow); GLUCOSE Negative (Negative); KETONE Negative (Negative); LEUKO ESTERASE Negative (Negative); NITRITE Negative (Negative); PH 7.5 (4.5-8.0); SPECIFIC GRAVITY <= 1.005 (1.001-1.030)
[2022-02-05 19:05] LABS: RBC 0-2 rbc/hpf (0-2)
[2022-02-05 20:00] VITALS: BP 114/72
[2022-02-06] VITALS: BP 112/74
[2022-02-06 06:28] LABS: MEAN CELL VOLUME 106.1 fl (81.0-99.0); MEAN CORPUSCULAR HGB 36.3 pg (27.0-31.0); MEAN CORPUSCULAR HGB CONC 34.2 g/dl (33.0-37.0); MEAN PLATELET VOLUME 10.9 fl (9.6-12.3); PLATELET COUNT AUTOMATED 45 10*3/uL (130-400); RED BLOOD COUNT 3.11 10*6/uL (4.10-5.10); WHITE BLOOD COUNT 4.9 10*3/uL (4.8-10.8)
[2022-02-06 06:34] LABS: BUN 3 mg/dl (7-24); CHLORIDE 107 mmol/L (98-107); POTASSIUM 3.6 mmol/L (3.5-5.1); SODIUM 136 mmol/L (136-145)
[2022-02-06 06:35] LABS: CREATININE 0.43 mg/dL (0.55-1.02)
[2022-02-06 06:45] LABS: MANUAL DIFF REFLEX YES
[2022-02-06 07:10] LABS: PLATELET SUFFICIENCY LOW (NORMAL); POLYCHROMASIA SLIGHT; TOTAL CELLS COUNTED 100 #CELLS
[2022-02-06 08:00] VITALS: BP 125/77
[2022-02-06] MEDS ORDERED: ZOVIRAX5 GM T (09:58)
== END 2022-02-06 12:09 | disposition home or self-care (01) | DRG 775 ==
LOC: ED 15:04 → 5E 17:53 → EDHOLD 17:53 → 5E 02-05 10:26
PROVIDERS: Emergency Medicine; Internal Medicine; ADMIT Internal Medicine; ATTEND Internal Medicine
DX: F10.10 Alcohol abuse, uncomplicated (principal); E87.6 Hypokalemia; I85.00 Esophageal varices without bleeding; E43 Unspecified severe protein-calorie malnutrition; E83.42 Hypomagnesemia; E78.5 Hyperlipidemia, unspecified; F32.9 Major depressive disorder, single episode, unspecified; G40.909 Epilepsy, unspecified, not intractable, without status epilepticus; G62.9 Polyneuropathy, unspecified; E87.2 Acidosis; E80.7 Disorder of bilirubin metabolism, unspecified; D72.829 Elevated white blood cell count, unspecified; E83.51 Hypocalcemia; F17.200 Nicotine dependence, unspecified, uncomplicated; D72.810 Lymphocytopenia; D75.89 Other specified diseases of blood and blood-forming organs; Z90.49 Acquired absence of other specified parts of digestive tract; Z80.3 Family history of malignant neoplasm of breast; Z82.49 Family history of ischemic heart disease and other diseases of the circulatory system; Z81.8 Family history of other mental and behavioral disorders; Z68.1 Body mass index [BMI] 19.9 or less, adult; B00.1 Herpesviral vesicular dermatitis

== ENCOUNTER 2022-05-09 16:12 | Emergency (ER) | payer OTHER ==
[~2022-05-09] VITALS: Ht 165.1 cm; Wt 47.2 kg
[~2022-05-09 16:12] MED LIST changes: +KLOR-CON M2020 ME1 PO; +ZOVIRAX5 GM T
[2022-05-09 16:44] LABS: BASO # 0.1 10*3/uL (0.0-0.1); BASO % 0.5 % (0.0-1.0); EOS % 0.1 % (1.0-4.0); HEMATOCRIT 41.8 % (37.0-47.0); LYMPH # 1.6 10*3/uL (1.3-4.4); LYMPH % 16.4 % (27.0-41.0); MEAN CORPUSCULAR HGB 35.7 pg (27.0-31.0); MEAN PLATELET VOLUME 9.1 fl (9.6-12.3); MONO # 0.4 10*3/uL (0.1-1.0); MONO % 4.5 % (3.0-9.0); NEUT # 7.7 10*3/uL (2.3-7.9); NEUT % 78.2 % (47.0-73.0); PLATELET COUNT AUTOMATED 111 10*3/uL (130-400); RED BLOOD COUNT 3.98 10*6/uL (4.10-5.10); RED CELL DISTRI WIDTH 17.1 % (0-14.5); WHITE BLOOD COUNT 9.8 10*3/uL (4.8-10.8)
[2022-05-09 17:07] LABS: ALKALINE PHOSPHATASE 108 U/L (45-117); BUN 12 mg/dl (7-24); CHLORIDE 102 mmol/L (98-107); CREATININE 0.62 mg/dL (0.55-1.02); LIPASE 127 U/L (73-393); POTASSIUM 3.1 mmol/L (3.5-5.1); SGOT/AST 76 IU/L (3-35); SGPT/ALT 34 U/L (12-78); SODIUM 142 mmol/L (136-145); TOTAL PROTEIN 8.5 gm/dL (6.4-8.2)
== END 2022-05-09 18:25 | disposition home or self-care (01) ==
LOC: ED 16:12
PROVIDERS: Student in an Organized Health Care Education/Training Program
DX: E87.6 Hypokalemia (principal); R11.2 Nausea with vomiting, unspecified; Z90.49 Acquired absence of other specified parts of digestive tract; Z98.890 Other specified postprocedural states

== ENCOUNTER 2022-06-16 16:39 | Inpatient (IN) | payer OTHER ==
[~2022-06-16] VITALS: Ht 165.1 cm; Wt 45.4 kg
[2022-06-16 16:46] VITALS: BP 126/81
[2022-06-16 17:31] LABS: BASO % 0.2 % (0.0-1.0); EOS # 0.1 10*3/uL (0.0-0.4); EOS % 1.6 % (1.0-4.0); HEMATOCRIT 42.9 % (37.0-47.0); LYMPH # 1.4 10*3/uL (1.3-4.4); LYMPH % 15.1 % (27.0-41.0); MEAN CELL VOLUME 101.9 fl (81.0-99.0); MEAN CORPUSCULAR HGB 35.9 pg (27.0-31.0); MEAN CORPUSCULAR HGB CONC 35.2 g/dl (33.0-37.0); MEAN PLATELET VOLUME 10.8 fl (9.6-12.3); MONO # 0.5 10*3/uL (0.1-1.0); MONO % 5.8 % (3.0-9.0); NEUT % 77.1 % (47.0-73.0); PLATELET COUNT AUTOMATED 58 10*3/uL (130-400); RED BLOOD COUNT 4.21 10*6/uL (4.10-5.10); RED CELL DISTRI WIDTH 14.3 % (0-14.5)
[2022-06-16 17:45] LABS: BUN 9 mg/dl (7-24); CHLORIDE 84 mmol/L (98-107); CREATININE 0.74 mg/dL (0.55-1.02); LIPASE 94 U/L (73-393); SGOT/AST 150 IU/L (3-35); SGPT/ALT 44 U/L (12-78); SODIUM 129 mmol/L (136-145); TOTAL PROTEIN 7.6 gm/dL (6.4-8.2)
[2022-06-16 17:46] LABS: ALKALINE PHOSPHATASE 98 U/L (45-117)
[2022-06-16 18:05] LABS: ACT PARTIAL THROMBO TIME 26.9 SECONDS (20.0-32.1); INTERNATIONAL NORM RATIO 1.3 (2.0-3.5)
[2022-06-16 19:15] VITALS: BP 137/90
[2022-06-16 21:15] VITALS: BP 145/90
[2022-06-16 22:18] VITALS: BP 116/69
[2022-06-17 06:38] LABS: INTERNATIONAL NORM RATIO 1.3 (2.0-3.5)
[2022-06-17 06:47] LABS: BUN 8 mg/dl (7-24); CHLORIDE 96 mmol/L (98-107); CREATININE 0.68 mg/dL (0.55-1.02); POTASSIUM 2.7 mmol/L (3.5-5.1); SGOT/AST 90 IU/L (3-35); SGPT/ALT 32 U/L (12-78); SODIUM 132 mmol/L (136-145)
[2022-06-17 06:49] LABS: HEMATOCRIT 39.2 % (37.0-47.0); MEAN CELL VOLUME 104.3 fl (81.0-99.0); MEAN CORPUSCULAR HGB 35.6 pg (27.0-31.0); MEAN CORPUSCULAR HGB CONC 34.2 g/dl (33.0-37.0); MEAN PLATELET VOLUME 10.5 fl (9.6-12.3); PLATELET COUNT AUTOMATED 48 10*3/uL (130-400); RED BLOOD COUNT 3.76 10*6/uL (4.10-5.10); RED CELL DISTRI WIDTH 14.5 % (0-14.5); WHITE BLOOD COUNT 6.8 10*3/uL (4.8-10.8)
[2022-06-17 06:52] LABS: ALKALINE PHOSPHATASE 76 U/L (45-117); FREE T4 1.03 ng/dl (0.76-1.46)
[2022-06-17 07:28] LABS: MANUAL DIFF REFLEX YES
[2022-06-17 07:30] VITALS: BP 124/84
[2022-06-17 07:56] LABS: VITAMIN D, 25-HYDROXY 18.9 ng/mL (30-100)
[2022-06-17 08:17] LABS: PLATELET SUFFICIENCY LOW (NORMAL); POLYCHROMASIA SLIGHT; TOTAL CELLS COUNTED 100 #CELLS
[2022-06-17 08:18] LABS: OVALOCYTES FEW
[2022-06-17 11:50] VITALS: BP 103/63
[2022-06-17 14:46] LABS: BUN 4 mg/dl (7-24); CHLORIDE 96 mmol/L (98-107); CREATININE 0.65 mg/dL (0.55-1.02); SODIUM 131 mmol/L (136-145)
[2022-06-17 14:50] LABS: POTASSIUM 2.2 mmol/L (3.5-5.1)
[2022-06-17 16:00] VITALS: BP 148/81
[2022-06-17 18:57] LABS: BILIRUBIN Negative (Negative); BLOOD Negative (Negative); CLARITY Clear (Clear); COLOR Yellow (Yellow); GLUCOSE Negative (Negative); KETONE Negative (Negative); LEUKO ESTERASE Negative (Negative); NITRITE Negative (Negative); SPECIFIC GRAVITY <= 1.005 (1.001-1.030)
[2022-06-17 19:26] LABS: EPITHELIAL CELLS 0-2; WBC 0-2 wbc/hpf (0-5)
[2022-06-17 20:00] VITALS: BP 100/61
[2022-06-18] VITALS: BP 108/70
[2022-06-18 07:13] LABS: HEMATOCRIT 36.3 % (37.0-47.0); MEAN CELL VOLUME 106.8 fl (81.0-99.0); MEAN CORPUSCULAR HGB 35.9 pg (27.0-31.0); MEAN CORPUSCULAR HGB CONC 33.6 g/dl (33.0-37.0); MEAN PLATELET VOLUME 11.8 fl (9.6-12.3); PLATELET COUNT AUTOMATED 45 10*3/uL (130-400); RED CELL DISTRI WIDTH 14.4 % (0-14.5); WHITE BLOOD COUNT 5.8 10*3/uL (4.8-10.8)
[2022-06-18 07:30] LABS: ALKALINE PHOSPHATASE 77 U/L (45-117); BUN 6 mg/dl (7-24); CHLORIDE 104 mmol/L (98-107); CREATININE 0.51 mg/dL (0.55-1.02); SGOT/AST 47 IU/L (3-35); SGPT/ALT 29 U/L (12-78); SODIUM 136 mmol/L (136-145); TOTAL PROTEIN 5.7 gm/dL (6.4-8.2)
[2022-06-18 07:33] LABS: POTASSIUM 3.6 mmol/L (3.5-5.1)
[2022-06-18 07:38] LABS: MANUAL DIFF REFLEX YES
[2022-06-18 07:40] LABS: TOTAL CELLS COUNTED 100 #CELLS
[2022-06-18 07:41] LABS: OVALOCYTES FEW; PLATELET SUFFICIENCY LOW (NORMAL); POLYCHROMASIA SLIGHT
[2022-06-18 08:00] VITALS: BP 110/79
[2022-06-18] MEDS ORDERED: VITAMIN D350 MC2 PO (11:06)
[2022-06-18 12:00] VITALS: BP 108/70
== END 2022-06-18 14:55 | disposition home or self-care (01) | DRG 384 ==
LOC: ED 16:39 → EDHOLD 18:53 → 5E 18:53
PROVIDERS: Emergency Medicine; Family Medicine; Internal Medicine; ADMIT Internal Medicine; ATTEND Internal Medicine
PROC: 0HQ0XZZ Repair Scalp Skin, External Approach (ICD-10-PCS; principal; 2022-06-16)
DX: S01.01XA Laceration without foreign body of scalp, initial encounter (principal); F10.229 Alcohol dependence with intoxication, unspecified; E87.6 Hypokalemia; I85.00 Esophageal varices without bleeding; E87.20 Acidosis, unspecified; K76.0 Fatty (change of) liver, not elsewhere classified; E87.1 Hypo-osmolality and hyponatremia; F32.9 Major depressive disorder, single episode, unspecified; G62.9 Polyneuropathy, unspecified; G40.909 Epilepsy, unspecified, not intractable, without status epilepticus; I10 Essential (primary) hypertension; E83.42 Hypomagnesemia; E83.51 Hypocalcemia; E87.8 Other disorders of electrolyte and fluid balance, not elsewhere classified; F10.20 Alcohol dependence, uncomplicated; D69.6 Thrombocytopenia, unspecified; E80.6 Other disorders of bilirubin metabolism; F17.210 Nicotine dependence, cigarettes, uncomplicated; K44.9 Diaphragmatic hernia without obstruction or gangrene; R74.01 Elevation of levels of liver transaminase levels; F19.90 Other psychoactive substance use, unspecified, uncomplicated; E83.39 Other disorders of phosphorus metabolism; Z90.49 Acquired absence of other specified parts of digestive tract; Z80.3 Family history of malignant neoplasm of breast; Z81.8 Family history of other mental and behavioral disorders; Z82.49 Family history of ischemic heart disease and other diseases of the circulatory system

== ENCOUNTER → 2022-06-24 | Outpatient (CLI) | payer OTHER ==
[~2022-06-24] MED LIST changes: +VITAMIN D350 MC2 PO
== END | disposition home or self-care (01) ==
LOC: WOUNDCARE 00:54
PROVIDERS: ATTEND Nurse Practitioner Family
DX: S01.90XA Unspecified open wound of unspecified part of head, initial encounter (principal); G62.9 Polyneuropathy, unspecified; I10 Essential (primary) hypertension; F17.200 Nicotine dependence, unspecified, uncomplicated; F32.A Depression, unspecified; Z90.49 Acquired absence of other specified parts of digestive tract; Z48.02 Encounter for removal of sutures; X58.XXXA Exposure to other specified factors, initial encounter; Y93.89 Activity, other specified; Y92.89 Other specified places as the place of occurrence of the external cause; Y99.8 Other external cause status

== ENCOUNTER 2022-07-08 05:25 | Emergency (ER) | payer OTHER ==
[~2022-07-08] VITALS: Ht 170.1 cm; Wt 39.1 kg
[2022-07-08 06:04] LABS: BASO % 0.1 % (0.0-1.0); HEMATOCRIT 45.1 % (37.0-47.0); LYMPH # 0.8 10*3/uL (1.3-4.4); LYMPH % 6.9 % (27.0-41.0); MEAN CELL VOLUME 107.1 fl (81.0-99.0); MEAN CORPUSCULAR HGB 35.9 pg (27.0-31.0); MEAN CORPUSCULAR HGB CONC 33.5 g/dl (33.0-37.0); MEAN PLATELET VOLUME 10.8 fl (9.6-12.3); MONO # 0.7 10*3/uL (0.1-1.0); MONO % 6.2 % (3.0-9.0); NEUT # 9.5 10*3/uL (2.3-7.9); NEUT % 85.4 % (47.0-73.0); PLATELET COUNT AUTOMATED 57 10*3/uL (130-400); RED BLOOD COUNT 4.21 10*6/uL (4.10-5.10); RED CELL DISTRI WIDTH 14.9 % (0-14.5); WHITE BLOOD COUNT 11.1 10*3/uL (4.8-10.8)
[2022-07-08 06:29] LABS: ALKALINE PHOSPHATASE 130 U/L (46-116); BUN 17 mg/dl (9-23); CHLORIDE 89 mmol/L (98-107); CREATININE 0.97 mg/dL (0.55-1.02); LIPASE 23 U/L (12-53); POTASSIUM 2.9 mmol/L (3.4-5.1); SGPT/ALT 30 U/L (10-49); SODIUM 142 mmol/L (136-145); TOTAL PROTEIN 8.8 gm/dL (6.0-8.0)
[2022-07-08 06:50] LABS: BILIRUBIN 2+ (Negative); BLOOD Negative (Negative); CLARITY Clear (Clear); COLOR Orange (Yellow); GLUCOSE Negative (Negative); KETONE 2+ (Negative); LEUKO ESTERASE Trace (Negative); NITRITE Positive (Negative); PH 7.5 (4.5-8.0); SPECIFIC GRAVITY >= 1.030 (1.001-1.030)
[2022-07-08 07:11] LABS: BACTERIA 1+; MUCOUS TRACE; RBC 0-2 rbc/hpf (0-2)
[2022-07-08] MEDS ORDERED: CEPHALEXIN500 M1 PO (10:42)
[2022-07-08] MEDS ORDERED: DIFLUCAN150 MG PO (10:42)
[2022-07-08] MEDS ORDERED: COMPAZINE10 M1 PO (10:42)
[2022-07-09] MEDS ORDERED: CEPHALEXIN500 M1 PO (14:42)
[2022-07-09] MEDS ORDERED: COMPAZINE10 M1 PO (14:42)
[2022-07-09] MEDS ORDERED: DIFLUCAN150 MG PO (14:42)
== END 2022-07-08 11:08 | disposition home or self-care (01) ==
LOC: ED 05:25
PROVIDERS: Emergency Medicine
DX: R11.2 Nausea with vomiting, unspecified (principal); Z20.822 Contact with and (suspected) exposure to COVID-19; R19.7 Diarrhea, unspecified; Z90.49 Acquired absence of other specified parts of digestive tract; Z98.890 Other specified postprocedural states; Z87.891 Personal history of nicotine dependence

== ENCOUNTER 2022-07-10 23:15 | Emergency (ER) | payer OTHER ==
[~2022-07-10] VITALS: Ht 170.1 cm; Wt 39.1 kg
[~2022-07-10 23:15] MED LIST changes: +COMPAZINE10 M1 PO
[2022-07-10 23:45] LABS: HEMATOCRIT 41.5 % (37.0-47.0); MEAN CELL VOLUME 116.9 fl (81.0-99.0); MEAN CORPUSCULAR HGB 36.1 pg (27.0-31.0); MEAN CORPUSCULAR HGB CONC 30.8 g/dl (33.0-37.0); MEAN PLATELET VOLUME 11.6 fl (9.6-12.3); NUCLEATED RED BLOOD CELL 0.1 10*3/uL (0.0-0.0); NUCLEATED RED BLOOD CELL 0.4 % (0.0-0.0); PLATELET COUNT AUTOMATED 62 10*3/uL (130-400); RED BLOOD COUNT 3.55 10*6/uL (4.10-5.10); RED CELL DISTRI WIDTH 15.7 % (0-14.5); WHITE BLOOD COUNT 12.9 10*3/uL (4.8-10.8)
[2022-07-10 23:49] LABS: MANUAL DIFF REFLEX YES
[2022-07-11 00:19] LABS: ALKALINE PHOSPHATASE 121 U/L (46-116); BUN 27 mg/dl (9-23); CREATININE 3.31 mg/dL (0.55-1.02); POTASSIUM 3.7 mmol/L (3.4-5.1); SODIUM 123 mmol/L (136-145); TOTAL PROTEIN 6.5 gm/dL (6.0-8.0)
[2022-07-11 00:37] LABS: CHLORIDE 69 mmol/L (98-107); ETHYL ALCOHOL < 3.0 mg/dl (<3); SGPT/ALT 2265 U/L (10-49)
[2022-07-11 01:40] LABS: TOTAL CELLS COUNTED 100 #CELLS
[2022-07-11 01:41] LABS: OVALOCYTES FEW; PLATELET SUFFICIENCY LOW (NORMAL)
== END 2022-07-11 08:48 | disposition short-term general hospital (02) ==
LOC: ED 23:15
PROVIDERS: Internal Medicine
DX: K72.00 Acute and subacute hepatic failure without coma (principal); N17.9 Acute kidney failure, unspecified; Z90.49 Acquired absence of other specified parts of digestive tract; Z98.890 Other specified postprocedural states; F10.10 Alcohol abuse, uncomplicated; F17.200 Nicotine dependence, unspecified, uncomplicated; E87.8 Other disorders of electrolyte and fluid balance, not elsewhere classified; D72.829 Elevated white blood cell count, unspecified; D75.89 Other specified diseases of blood and blood-forming organs; D69.6 Thrombocytopenia, unspecified